=== PATIENT | male | born 1985 | race Caucasian/White ===

== ENCOUNTER 2020-09-03 00:20 | Emergency (ER) | payer OTHER, SELFPAY ==
[2020-09-03 00:24] VITALS: BP 150/92; PULSE 75; RESP 18; TEMP 36.4; O2SAT 99
--- NOTE | 2020-09-03 00:38 | ED.GENADUL_ITS ---
Discharge Plan Disposition Patient Disposition: HOME Condition: Good Discharge Details Clinical Impression: Acute otitis externa of left ear Primary Care Provider: Unknown,Unknown ED Provider: Bairon Ford Home Meds and New Rx's Prescriptions: New ciprofloxacin HCl [Cipro] 500 mg tablet 500 mg PO BID 7 Days Qty: 14 RF: 0 Continued ibuprofen 800 MG tablet 800 mg PO DIRECTED RF: 0 Discontinued amoxicillin 500 MG capsule 500 mg PO TID Qty: 20 RF: 0 Discharge Instructions Instructions: Otitis Externa (ED) Additional Instructions: At this time your otitis externa requires both external antibiotic treatment and internal antibiotic treatment. Please continue to use your Cipro drops with the ear gwendolyn as we showed you, as well as taking the pill Cipro 500 mg twice daily. Continue to take Tylenol and Motrin to help with the pain and swelling. Avoid getting any water into your ear. We are sending you home with a [place] pill to use if you need for pain. Understand that you did have a skin rash with the previous morphine that you are taking, so there is certainly potential although low risk to having a mild rash from the [place] as well. As we discussed together, monitor closely for symptoms of tendon irritation and pain especially in your Achilles tendon. Do not perform any vigorous exercises while taking the Cipro. If you do notice any of those concerning symptoms please stop taking the Cipro immediately and get evaluated by a physician. If you notice any worsening of your symptoms, or any new symptoms such as vomiting, diarrhea, fever, chills, shortness of breath, chest pain, numbness, weakness, or fainting , please return immediately to the emergency department for reevaluation. Please follow up with your primary care provider as soon as possible for reassessment and reevaluation. As always, it was a pleasure participating in your medical care today. Medical Decision Making This is a pleasant 35-year-old male who presents today for left ear pain. Pain began about 4 or 5 days ago, he initially went to an urgent care in [place], he was prescribed Cipro drops and has been taking this, but his symptoms have been worsening. He is also been taking Tylenol and Motrin but this has not been improving his symptoms. He describes the pain as sharp and achy, he has noticed swelling in his ear, he denies fever or chills. No other complaints at this time. Of note he did go swimming a few days ago, but denies getting any water in his ear. Physical exam demonstrates notable swelling of the left ear canal, no significant swelling over the ear itself though. No evidence of malignant otitis externa at this stage. No evidence of mastoiditis. Patient has no history of diabetes, or an immunocompromise state. No history of IV drug use. No bleeding or discharge from the ear at this point. Unable to visualize the tympanic membrane secondary to the swelling though. Was able to utilize an ear wick and we were able to administer the medications utilizing this. Patient tolerated this well. Because of the continued worsening of the symptoms we will add oral Cipro 500 mg twice daily, and recommend continue Tylenol Motrin as well as the topical Cipro. Did discuss pain management at home, and through shared decision-making process we will give the patient a single [place] pill to go home with. We did discuss the risk and benefits of this, including his history of a very mild rash during the surgery when he had morphine. He denies any other allergies or any other problems with this otherwise in the past. Additionally I did also discuss with the patient the importance of monitoring symptoms for fluoroquinolone problems especially with the tendons. We discussed the importance of holding the medication if he has any signs or symptoms concerning for tendon irritation. Discussed red flags which to return. I have extensively reviewed the treatment plan and discharge instructions with the patient. I have addressed all patient concerns at this time. The patient was made aware of what symptoms to monitor for that would warrant a return to the emergency department. Discussed the plan with the patient, they demonstrate verbal understanding and agreement with our assessment and plan at this time. The documentation in this chart was dictated using [employer] dictation software. Please excuse any dictation errors. HPI General Date/Time Provider Initiated Documentation: 09/03/20 00:20 . HPI Narrative: This is a pleasant 35-year-old male who presents today for left ear pain. Pain began about 4 or 5 days ago, he initially went to an urgent care in [place], he was prescribed Cipro drops and has been taking this, but his symptoms have been worsening. He is also been taking Tylenol and Motrin but this has not been improving his symptoms. He describes the pain as sharp and achy, he has noticed swelling in his ear, he denies fever or chills. No other complaints at this time. Of note he did go swimming a few days ago, but denies getting any water in his ear. Related Data Home Medications Medication Instructions Recorded Confirmed ibuprofen 800 mg PO DIRECTED 08/12/13 08/12/13 ciprofloxacin HCl [Cipro] 500 mg PO BID 7 Days #14 tab 09/03/20 Previous Rx's Medication Instructions Recorded ciprofloxacin HCl [Cipro] 500 mg PO BID 7 Days #14 tab 09/03/20 Allergies Allergy/AdvReac Type Severity Reaction Status Date / Time morphine Allergy Mild Skin Rash Unverified 08/12/13 22:58 General Stated Complaint: EarProblem ANTHONY: 4 Review of Systems All systems reviewed & are unremarkable except as noted in HPI and below PFSH Social History Smoking/Tobacco Use Status: Never Smoking risk assessment performed?: Yes Alcohol Intake: current Alcohol Intake frequency: a few times a week Drug use: Never Do you feel safe at home: Yes Do you feel safe in your relationship?: Yes Exam Narrative Exam Narrative: 1.Const: Well-nourished, Well-developed, appearing stated age 2.Eyes: PERRL, no conjunctival injection, and symmetrical lids. 3.ENT: Atraumatic external nose and ears. Moist MM. Neck: Symmetric, trachea midline, No thyromegaly. Right ear and tympanic membrane are unremarkable, no swelling edema or tenderness. Left ear does not demonstrate significant swelling on the external ear, but the left ear canal is notably edematous. Unable to visualize the tympanic membrane secondary to swelling. No mastoid tenderness. Mild tenderness on palpation at the auricle of the tragus. No blood or purulent discharge coming from the ear. 4.CVS: +S1/S2, No murmurs or gallops. Peripheral pulses 2+ and equal in all extremities. Brisk capillary refill in all extremities. 5.RESP: Unlabored respiratory effort. Clear to auscultation bilaterally. No wheezes rales or rhonchi 6.GI: Soft, Nontender/Nondistended, No hepatosplenomegaly. No guarding or rebound. 7.MSK: Normocephalic/Atraumatic, Extremities w/o deformity or ttp No cyanosis or clubbing, Normal movement of all extremities 8.Skin: Warm, Dry. No rashes or lesions. 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 Sensation grossly intact, no focal neurologic deficits. 10.Psych: (AAO) x3. Appropriate mood and affect Course Vital Signs Vital signs: Vital Signs Temperature 36.4 C L 09/03/20 00:24 Pulse 75 09/03/20 00:24 Respiratory Rate 18 09/03/20 00:24 Blood Pressure 150/92 H 09/03/20 00:24 Pulse Oximetry 99 09/03/20 00:24 Temperature 36.4 C L 09/03/20 00:24 Temperature Source Temporal Artery Scan 09/03/20 00:24 Pulse 75 09/03/20 00:24 Respiratory Rate 18 09/03/20 00:24 Respiratory Effort Non-Labored 09/03/20 00:28 Blood Pressure 150/92 H 09/03/20 00:24 Blood Pressure Position Sitting 09/03/20 00:24 Pulse Oximetry 99 09/03/20 00:24 Oxygen Delivery Method Room Air 09/03/20 00:24 Oxygen Flow Rate 0 09/03/20 00:24 Pain Level 8 09/03/20 00:29
[2020-09-03] MEDS: Ciprofloxacin 500 MG TAB PO (00:45)
[2020-09-03] MEDS: HYDROcodone 5/Acetaminophen 325 TAB PO (00:45)
[2020-09-03 00:46] VITALS: BP 138/80; PULSE 75; RESP 18; TEMP 36.4; O2SAT 99
== END 2020-09-03 00:45 | disposition home or self-care (01) ==
LOC: ER 00:52
PROVIDERS: Emergency Provider Student in an Organized Health Care Education/Training Program
DX: H60.502 Unspecified acute noninfective otitis externa, left ear (principal)
CPT/HCPCS: 99283

== ENCOUNTER → 2021-12-08 13:26 | Outpatient (CLI) | payer OTHER, SELFPAY ==
--- NOTE | 2021-12-08 | DI.RAD_ITS ---
Exam(s) XR CHEST 2V PA LATERAL EXAM: XR CHEST 2V PA LATERAL CLINICAL HISTORY: COUGH WITH HEMOPTYSIS, R04.2 TECHNIQUE: 2D digital imaging was performed. COMPARISON: No exams were available for comparison FINDINGS: HEART: Normal size. Aorta: PULMONARY VASCULATURE: Normal. LUNGS: Clear. PLEURAL SPACE: No pleural effusion or pneumothorax. BONE:Unremarkable for age. IMPRESSION: No acute abnormality. DATA REPOSITORY: RADIATION DOSE DELIVERED:
--- OUTSIDE RECORDS SUMMARY | 2021-12-08 13:30 | XMS_ITS | Encounter Summary ---
:1985 Author Organization [facility] [address] Care Team Providers Name Role Phone Deb Vallejo MD Primary Care Provider Encounter Details Date Type Department Care Team Description 03/25/2021 Travel Social History Tobacco Use Types Packs/Day Years Used Date Never Smoker Smokeless Tobacco: Never Used Alcohol Use Standard Drinks/Week Comments Yes 2 (1 standard drink = 0.6 oz pure alcoho l) 1x/week Alcohol Habits Answer Date Recorded How often do you have a drink containing alcohol? Not asked How many drinks containing alcohol do you have on a typical Not asked day when you are drinking? How often do you have six or more drinks on one occasion? No t asked Comment: 1x/week 11/12/2019 Physical Activity Answer Date Recorded On average, how many days per week do you engage in moderate to 7 days 11/30/2021 strenuous exercise (like walking fast, running, jogging, dancing, swimming, biking, or other activities that cause a light or heavy sweat)? On average, how many minutes do you engage in exercise at th is 80 min 11/30/2021 level? Financial Resource Strain Answer Date Recorded How hard is it for you to pay for the very basics like Not v chrissy hard 11/30/2021 food, housing, medical care, and heating? Food Insecurity Answer Date Recorded Within the past 12 months, you worried that your food would Never true 11/30/2021 run out before you got money to buy more. Within the past 12 months, the food you bought just didn't N ever true 11/30/2021 last and you didn't have money to get more. Transportation Needs Answer Date Recorded In the past 12 months, has lack of transportation kept you f rom No 11/30/2021 medical appointments or from getting medications? In the past 12 months, has lack of transportation kept you f rom No 11/30/2021 meetings, work, or getting things needed for daily living? Housing Stability Answer Date Recorded In the last 12 months, was there a time when you were not ab le No 11/30/2021 to pay the mortgage or rent on time? In the last 12 months, how many places have you lived? 1 11/30/2021 In the last 12 months, was there a time when you did not hav e a No 11/30/[address] sleep or slept in a mcc (including now)? Sex Assigned at Date Recorded Not on file documented as of this encounter Plan of Treatment Upcoming Encounters Date Type Specialty Care Team Description 12/15/2021 Hospital Encounter Gastroenterology Benjy Tavera MD [facility] [place], [place] [address] 12/15/2021 Surgery Gastroenterology Benjy Tavera COLONOSC Ben PULIDO MD DIAGNOSTIC [facility] [place], [place] [address] Scheduled Procedures Name Priority Associated Diagnoses Date/Time COLONOSCOPY, DIAGNOSTIC 1 year colo 12/16/19 22 8:30 AM EST documented as of this encounter Visit Diagnoses Not on filedocumented in this encounter Care Teams Shank Skinner Relationship Specialty Start Date End Date Deb Vallejo MD PCP - General Family Medicine 06/16/20 11/10/[address] [facility] [address] MANUEL ESTEVE[facility] [address] documented as of this encounter
--- OUTSIDE RECORDS SUMMARY | 2021-12-08 13:30 | XMS_ITS | Encounter Summary ---
:1985 Author Organization [facility] [place] [address] Care Team Providers Name Role Phone Deb Vallejo MD Primary Care Provider Reason for Referral Diagnostic Test (Routine) - Closed Specialty Diagnoses / Procedures Referred By Contact Refer red To Contact Radiology Diagnoses Neck pain Chronic right-sided headaches Occipital neuralgia of right side Yvon Delgado PA [facility] Rad Mri Procedures MRI Cervical Spine wo Contrast (Generic) [facility] [place] [address] [place] [address] Referral ID Status Reason Start Date Expiration Date Visits V isits Requested Authorized [id number] Closed Specialty 03/10/2021 09/07/2022 1 1 Service Requested Reason for Visit Reason Comments Follow-up Encounter Details Date Type Department Care Team Description 03/10/2021 Office Visit [facility] Bushra Delgado ain; at [facility] [place] Chronic right-sided headaches; [facility] Occ ipital neuralgia of right side [address] [place] [employer] [id number] [place] [address] Social History Tobacco Use Types Packs/Day Years [...] on file documented as of this encounter Last Filed Vital Signs Vital Sign Reading Time Taken Comments Blood Pressure 136/68 03/10/2021 9:20 AM EST Pulse 71 03/10/2021 9:20 AM EST Temperature - - Respiratory Rate - - Oxygen Saturation - - Inhaled Oxygen Concentration - - Weight 87.5 kg (193 lb) 03/10/2021 9:20 AM EST Height 182.9 cm (6') 03/10/2021 9:20 AM EST Body Mass Index 26.18 03/10/2021 9:20 AM EST documented in this encounter Progress Notes Yvon Delgado PA - 03/10/2021 9:20 AM EST Images from the original note were not included. [facility] Yvon Delgado PA-C Dear Colleagues, I had the pleasure of seeing this patient at the [facility] for evaluation. Chief Complaint: Assessment/plan: Diagnosis: 1) Chronic neck pain 2) Chronic headaches 3) Intermittent right cervical radiculopathy Bryan is a 35 year old male who presents to clinic after starting PT for neck pain and chronic headaches. He has had about 6 sessions and had no improvement in symptoms in severity or frequency. Occasionally has arm symptoms. Imaging shows an overall normal cervical spine. He has chronic neck pain andassociated intermittent right radicular symptoms and we discussed that while his XR appears normal, there can be soft disc impingement. We discussed an MRI would help determine if there is a central neural impingement. If MRI does not show a particular cause in regards to his neck, possible interventions to consider are occipital nerve block or trigger point injections. I will discuss results with him once imaging is completed and discuss next steps. 1) MRI cervical spine. 2) Discuss options after MRI. If cervical cause will proceed accordingly. Other options include occipital nerve block, trigger point injections. See below for more details HPI: Bryan is a 35 year old male with history of colon cancer in remission who returns to clinic 2 monthsafter last visit. Plan at last visit was to start PT for which he has had about 6 sessions and has not noticed a significant improvement. Continues to have neck pain and headaches. Reports occasional sy mptoms down right arm but is intermittent. At PT has been doing stretching and dry needling. After jonathan needling session he noticed he did have some increased symptoms but this has resolved. Pain currently rated 1/10. Denies any persistent arm pain, numbness, tingling, hand dysfunction, bowel/bladderchanges, or consitutional symptoms. Allergies Allergen Reactions ??? Morphine Rash Patient Active Problem List Diagnosis ??? Healthcare maintenance ??? Colon cancer ??? Adenocarcinoma of colon Overview Note: On colonoscopy. Sigmoid/rectal. Prior history of blood in stool. ??? Stomach ulcer Overview Note: with hemetemesis ??? Internal hemorrhoid Overview Note: Noted on anoscopy ROS: As above in HPI Imaging: Reviewed Xr from 01/27/21 which shows a well aligned cervical spine with straightening of normal lordotic curvature. Well maintained disc spaces. No acute fracture or abnormality. Physical Exam: Resting comfortably in no acute distress. Continues to have limited cervical ROM due to muscle tightness. He has a normal sensory and motor exam in bilateral upper extremities. Assessment/Plan: Bryan is a 35 year old male who presents to clinic after starting PT for neck pain and chronic headaches. He has had about 6 sessions and had no improvement in symptoms in severity or frequency. Occasionally has arm symptoms. Imaging shows an overall normal cervical spine. He has chronic neck pain andassociated intermittent right radicular symptoms and we discussed that while his XR appears normal, there can be soft disc impingement. We discussed an MRI would help determine if there is a central neural impingement. If MRI does not show a particular cause in regards to his neck, possible interventions to consider are occipital nerve block or trigger point injections. I will discuss results with him once imaging is completed and discuss next steps. 1) MRI cervical spine. 2) Discuss options after MRI. If cervical cause will proceed accordingly. Other options include occipital nerve block, trigger point injections. Thank you for letting me participate in this patient's care. Sincerely, Yvon Delgado PA-C [facility] documented in this encounter Plan of Treatment Upcoming Encounters Date Type Specialty Care Team Description 12/15/2021 Hospital Encounter Gastroenterology Benjy Tavera MD [facility] [address] [place], [place] [address] 12/15/2021 Surgery Gastroenterology Benjy Tavera W, MD [facility] GASTRO[facility]OLOGY [place], [place] [address] Scheduled Procedures Name Priority Associated Diagnoses Date/Time COLONOSCOPY, DIAGNOSTIC 1 year colo 12/16/19 8:30 AM EST documented as of this encounter Results MRI Cervical Spine wo Contrast (Generic) (03/25/2021 10:55 AM EST) Anatomical Region Laterality Modality C-spine Magnetic Resonance Specimen (Source) Anatomical Location Collection Method / Collectio n Time Received Time / Laterality Volume Impressions 03/25/2021 2:03 PM EST Minimal disc degeneration. Thank you for letting us participate in the care of this patient. ??If you are a health care provider and have any questi ons regarding this report, please contact the number below. ??For patients who have questions please contact the health child care supervisor that requested your imaging first. ? Electronically signed by: Sol rzao MD, [facility] ([phone]), at 03/25/2021 2:03 PM Narrative 03/25/2021 2:03 PM EST EXAMINATION: MRI CERVICAL SPINE WO CONTRAST (GENERIC) CLINICAL HISTORY: Cervical radiculopathy TECHNIQUE: MRI of the cervical spine performed with out intravenous contrast administration. COMPARISON: Radiograph 01/27/2021 FINDINGS: Mild reversal of the normal lordosis whi ch may be positional or due to spasm. Marrow signal is normal. Cervical cord s ignal is normal. C2-3: No significant stenosis. C3-4: No significant stenosis. C4-5: No significant stenosis. C5-6: Central disc protrusion minimally narrowing the central canal. C6-7: Central disc protrusion minimally narrowing the central canal. C7-T1: Normal. Procedure Note Sol See MD - 03/25/2021Formatt ing of this note might be different from the original. EXAMINATION: MRI CERVICAL SPINE WO CONTR AST (GENERIC) CLINICAL HISTORY: Cervical radiculopathy TECHNIQUE: MRI of the cervical spine performed with out intravenous contrast administration. COMPARISON: Radiograph 01/27/2021 FINDINGS: Mild reversal of the normal lordosis whi ch may be positional or due to spasm. Marrow signal is normal. Cervical cord s ignal is normal. C2-3: No significant stenosis. C3-4: No significant stenosis. C4-5: No significant stenosis. C5-6: Central disc protrusion minimally narrowing the central canal. C6-7: Central disc protrusion minimally narrowing the central canal. C7-T1: Normal. IMPRESSION Minimal disc degeneration. Thank you for letting us participate in the care of this patient. If you are a health care provider and have any questi ons regarding this report, please contact the number below. For patients w ho have questions please contact the health child care supervisor that requested your imaging first. Luis Felipe Cesar MD IMG MRI ORDERABLES documented in this encounter Visit Diagnoses Diagnosis Neck pain Cervicalgia Chronic right-sided headaches Headache Occipital neuralgia of right side Neck pain Cervicalgia Chronic right-sided headaches Headache Occipital neuralgia of right side documented in this encounter Care Teams Bull Ladle Tender Relationship Specialty Start Date End Date Deb Vallejo MD PCP - General Family Medicine 06/16/20 11/10/[address] [facility] [place] [address] documented as of this encounter
--- OUTSIDE RECORDS SUMMARY | 2021-12-08 13:30 | XMS_ITS | Encounter Summary ---
:1985 Author Organization [facility] Address [address] [place] [address] Care Team Providers Name Role Phone Jayson Garcia MD Primary Care Provider Reason for Visit Reason Comments Annual Exam Coughs a lot in am x 2 month s, vomited blood first week of November, history of colon cancer Encounter Details Date Type Department Care Team Description 11/30/2021 Office Visit Family Medicine at Jayson Garcia Well adult exam; Nettie Jacob MD Cough with hemoptysis; [address] Screening for hyperlipidemia; [place], [place] [facility] Nutritional counseling; [id number] [place] [address] Exercise counseling [phone] Social History Tobacco Use Types Packs/Day Years [...] place to sleep or slept in a skilled nursing (including now)? Sex Assigned at Date Recorded Not on file documented as of this encounter Last Filed Vital Signs Vital Sign Reading Time Taken Comments Blood Pressure 134/72 11/30/2021 1:07 PM EDT Pulse 77 11/30/2021 1:07 PM EDT Temperature 36.8 ??C (98.2 ??F) 11/30/2021 1:07 PM EDT Respiratory Rate - - Oxygen Saturation 98% 11/30/2021 1:07 PM EDT Inhaled Oxygen Concentration - - Weight 88.5 kg (195 lb) 11/30/2021 1:07 PM EDT Height 182.9 cm (6' 0.01) 11/30/2021 1:07 PM EDT Body Mass Index 26.44 11/30/2021 1:07 PM EDT documented in this encounter Progress Notes Jayson Garcia MD - 11/30/2021 1:00 PM EDT Bryan Marmolejo is a 36 y.o. male , patient of Jayson Garcia MD here Chief Complaint Patient presents with ??? Annual Exam Coughs a lot in am x 2 months, vomited blood first week of November, history of colon cancer Subjective Chart review prior to visit: HPI: Bryan Marmolejo is a 36 y.o. male, patient who reports for evaluation for well male exam. Has acuteconcerns of coughing up blood. Has had morning coughing for over 3 years with acute onset of coughing up blood that has occurred 3-4 times over the last 3 months. Patient also notes that the episodes of coughing have resulted in episodes of vomit. Denies any weight loss, recent travel, history of smoking, chest pain, SOB, lower extemity edema. ROS: See Subjective history Allergies Allergen Reactions ??? Morphine Rash Objective BP 134/72 (BP Location (NBP): Left arm, Patient Position: Sitting, BP Cuff Sizes: Large Adult (32-43cm)) Pulse 77 Temp 36.8 ??C (98.2 ??F) Ht 182.9 cm (6' 0.01) Wt 88.5 kg (195 lb) SpO2 98% BMI 26.44 kg/m?? Constitutional: Well developed, well nourished, no acute distress, non-toxic appearance Eyes:conjunctiva, eyelids are unremarkable bilat. HENT: Atraumatic, normocephalic. Eyes: conjunctiva and lids are unremarkable bilaterally, PERRLA, EOMI. External ears are unremarkable to inspection. Neck-supple, symmetrical, no anterior or posterior cervical lymphadenopathy, no thyromegaly or masses. Respiratory: CTABL. no crackles or wheezing. Cardiovascular: Normal rate, normal rhythm, no murmurs, gallops, or rubs. Peripheral pulses 2+ bilat. No pedal edema bilat. GI: Abdomen is soft, nontender to palpation, non-distended, no obvious hepatosplenomegaly, hernias, or masses. No guarding or rebound. Musculoskeletal: No abnormality noted Extremities: all mobile, exhibiting full range of motion, muscle strength and sensation grossly appear intact. Integument: Warm and dry to palpation, no rashes Neurologic: no focal deficits noted Psychiatric: Alert & oriented mood and affect appear appropriate. Assessment/Plan There are no diagnoses linked to this encounter. 1) Well adult exam -Reviewed the importance of portion control, as well as daily exercise with a goal of 30 mins daily. -Will complete flu vaccination 2) Cough with hemoptysis -Symptoms only occur in the morning and not occurring other times throughout the day make malignancyless likely. Symptoms possibly 2/2 sleep apnea, dry room also a possibility. Due to patients historyof adenocarcinoma of the colon will complete CXR. -Pt advised to use humidified air at night, will consider sleep study in the future. No indication for endoscopy at this time but will consider it in the future in setting of symptoms worsening or changing in character. documented in this encounter Plan of Treatment Upcoming Encounters Date Type Specialty Care Team Description 12/15/2021 Hospital Encounter Gastroenterology Benjy [facility]aver[facility] [place] [place] [address] 12/15/2021 Surgery Gastroenterology Benjy Tavera COLONOSC Ben PULIDO MD DIAGNOSTIC [facility] [place], [place] [address] Scheduled Orders Name Type Priority Associated Diagnoses Order S chedule XR Chest PA & Lateral Imaging Routine Cough with hemoptys is Expected: 11/30/2021 (Generic) (Approximate), Expires: 11/30/2022 Scheduled Procedures Name Priority Associated Diagnoses Date/Time COLONOSCOPY, DIAGNOSTIC 1 year colo 12/16/19 22 8:30 AM EST documented as of this encounter Procedures Procedure Name Priority Date/Time Associated Diagnosis Comme nts HC VENIPUNCTURE Routine 11/30/2021 2:30 PM Screening for Resul ts for this EDT hyperlipidemia procedure are in the results section. documented in this encounter Results Lipid Panel (Reflex Direct LDL) (11/30/2021 2:30 PM EDT) athologist Signature Chol, Total 174 mg/dL [facility] Comment: Lower Risk: <200 mg/dL Average Risk: 200-239 mg/dL Higher Risk: >xc=787 mg/dL Triglycerides 54 mg/dL [facility] Comment: Average Risk/Lower Risk: <150 mg/dL Borderline High Risk: 150-199 mg/dL High Risk: 200-499 mg/dL Very High Risk: >hn=315 mg/dL HDL 38 mg/dL [facility] Comment: Males: ?? Higher Risk: <40 mg/dL Females: ?? Higher Risk: <50 mg/dL LDL Cholesterol 125 mg/dL [facility] Comment: Lowest Risk: <100 mg/dL Lower Risk: 100-129 mg/dL Borderline High Risk: 130-159 mg/dL High Risk: 160-189 mg/dL Very High Risk: >dh=054 mg/dL Chol/HDL Ratio 4.6 ratio [facility] Lipid Interpretation See Note [facility] Comment: Lipid management should be guided by a p atient? s ASCVD risk, goals and preferences. ACC/AHA Guidelines recommend high intens ity statin if clinical ASCVD or LDL greater than or equal to 190 mg/dL. http://[email or web address] Adults aged 40-75 with LDL 70-189 mg/dL should have their 10 year ASCVD risk estimated with the ACC/AHA ASCVD risk es timator http://tools.acc.org/UVVAB-Gwud-Kvizxzjf r/ Statin should be discussed if risk great er than or equal to 7.5% in non-diabetics. With diabetes, moderate i ntensity statin is recommended if risk less than 7.5%, high intensity if risk g reater than or equal to 7.5%. Annual lipid monitoring on statins is no t necessary. Evaluate secondary causes of Triglycerid es greater than 500 mg/dL or LDL greater than 190 mg/dL: See table 6 of A CC/AHA Guideline. Lifestyle modification is a critical com ponent of ASCVD risk reduction. Specimen Anatomical Collection Method Collection Time Receive d Time (Source) Location / / Volume Laterality Blood 11/30/2021 2:30 PM 5:23 EDT PM EDT Resulting Agency Comment Spec In Lab Jayson Garcia MD CHEMISTRY ORDERABLES Performing Organization Address City/State/[place] [address] documented in this encounter Visit Diagnoses Diagnosis Well adult exam Routine general medical examination at a health care facility Cough with hemoptysis Other hemoptysis Screening for hyperlipidemia Screening for lipoid disorders Nutritional counseling Exercise counseling documented in this encounter Care Teams Geothermal Hvac Technician Relationship Specialty Start Date End Date Jayson Garcia MD PCP - General 11/11/21 18 [place] [address] documented as of this encounter
--- OUTSIDE RECORDS SUMMARY | 2021-12-08 13:30 | XMS_ITS | Clinical Summary ---
:1985 Author Organization [facility] [place] [address] Care Team Providers Name Role Phone Jayson Garcia MD Primary Care Provider Allergies Active Allergy Reactions Severity Noted Date Comments Morphine Rash 12/06/2014 Medications No known medications Active Problems Problem Noted Date Colon cancer 11/12/2019 Adenocarcinoma of colon 10/28/2019 Overview: On colonoscopy. Sigmoid/rectal. Prior hi story of blood in stool. Healthcare maintenance 08/12/2018 Stomach ulcer 02/06/2007 Overview: with hemetemesis Internal hemorrhoid 12/22/1984 Overview: Noted on anoscopy Encounters Date Type Specialty Care Team Description 12/07/2021 Telephone Family Medicine Eda Metcalf 12/06/2021 Telephone Gastroenterology Yuriy Greenberg 11/30/2021 Office Visit Family Medicine Jayson Garcia, [place] adult exam; Cough with hemo ptysis; Screening for h yperlipidemia; Nutritional cou nseling; Exercise counse ling 11/30/2021 Travel 11/19/2021 Nurse Triage Family Medicine Maribel De La Cruz RN from Last 3 Months Immunizations Name Administration Dates Next Due Influenza PF, Split 12/22/2014 Influenza Vaccine W/preservative, 11/30/2021 Quadrivalent Moderna Covid-19 (Line Installer 100mcg) Vaccine 05/23/2021, 2020, 05/25/2020 Tdap Vaccine 04/08/2014 Family History Medical History Relation Comments Kidney Cancer Brother Nonalcoholic Liver Disease Brother Chronic Obstructive Pulmonary Disease Maternal Grandmother Liver Cancer Paternal Grandfather Melanoma Paternal Grandfather Relation Status Comments Brother Alive Father Alive Maternal Grandfather Maternal Grandmother Mother Alive Paternal Grandfather Paternal Grandmother Son Alive Social History Tobacco Use Types Packs/Day Years [...] place to sleep or slept in a fci (including now)? Sex Assigned at Date Recorded Not on file Last Filed Vital Signs Vital Sign Reading Time Taken Comments Blood Pressure 134/72 11/30/2021 1:07 PM EDT Pulse 77 11/30/2021 1:07 PM EDT Temperature 36.8 ??C (98.2 ??F) 11/30/2021 1:07 PM EDT Respiratory Rate 16 12/14/2020 3:50 PM EST Oxygen Saturation 98% 11/30/2021 1:07 PM EDT Inhaled Oxygen Concentration - - Weight 88.5 kg (195 lb) 11/30/2021 1:07 PM EDT Height 182.9 cm (6' 0.01) 11/30/2021 1:07 PM EDT Body Mass Index 26.44 11/30/2021 1:07 PM EDT Plan of Treatment Upcoming Encounters Date Type Specialty Care Team Description 12/15/2021 Hospital Encounter Gastroenterology Benjy Tavera MD [facility] [place], [place] [address] 12/15/2021 Surgery Gastroenterology Benjy Tavera COLONOSC Ben PULIDO MD DIAGNOSTIC [facility] [address] [place], [place] [address] Scheduled Procedures Name Priority Associated Diagnoses Date/Time COLONOSCOPY, DIAGNOSTIC 1 year colo 12/16/19 22 8:30 AM EST Health Maintenance Due Date Last Done Comments Covid-19 Vaccine (4 - Booster for 07/18/2021 05/23/2021, , Moderna series) 05/25/2020 Colonoscopy Screening 12/14/2021 12/14/2020, 12/14/2020, 10/28/2019, Additional history exists Tetanus vaccine 04/08/2024 04/08/2014 Lipid Screening 11/30/2026 11/30/2021, 07/05/2019 Tdap adult Completed 04/08/2014 HIV screen Completed 07/05/2019 Hepatitis C Screening Completed 07/05/2019 Influenza (Flu) vaccine Completed 11/30/2021, 12/22/2014 Procedures Procedure Name Priority Date/Time Associated Diagnosis Comme nts HC VENIPUNCTURE Routine 11/30/2021 2:30 PM Screening for Resul ts for this EDT hyperlipidemia procedure are in the results section. from Last 3 Months Results Lipid Panel (Reflex Direct LDL) (11/30/2021 2:30 PM EDT) athologist Signature Chol, Total 174 mg/dL [facility] Comment: Lower Risk: <200 mg/dL Average Risk: 200-239 mg/dL Higher Risk: >pu=059 mg/dL Triglycerides 54 mg/dL [facility] Comment: Average Risk/Lower Risk: <150 mg/dL Borderline High Risk: 150-199 mg/dL High Risk: 200-499 mg/dL Very High Risk: >qf=730 mg/dL HDL 38 mg/dL [facility] Comment: Males: ?? Higher Risk: <40 mg/dL Females: ?? Higher Risk: <50 mg/dL LDL Cholesterol 125 mg/dL [facility] Comment: Lowest Risk: <100 mg/dL Lower Risk: 100-129 mg/dL Borderline High Risk: 130-159 mg/dL High Risk: 160-189 mg/dL Very High Risk: >td=757 mg/dL Chol/HDL Ratio 4.6 ratio [facility] Lipid Interpretation See Note [facility] Comment: Lipid management should be guided by a p atient? s ASCVD risk, goals and preferences. ACC/AHA Guidelines recommend high intens ity statin if clinical ASCVD or LDL greater than or equal to 190 mg/dL. http://tinyurl.com/OKQ-AOE-Jhzppjvpe Adults aged 40-75 with LDL 70-189 mg/dL should have their 10 year ASCVD risk estimated with the ACC/AHA ASCVD risk es timator http://tools.acc.org/YYTNI-Utdn-Aqwsemne r/ Statin should be discussed if risk [...] Organization Address City/State/[place] [address] from Last 3 Months Insurance Payer Benefit Plan / Subscriber ID Effective Dates Phone Addre ss Type Group [id number] 2018-Present [address] [place] [address] Advance Directives Documents on File Type Date Recorded Patient Mapping Engineer Explanati on Personal Mapping Engineer 12/01/2021 7:54 AM Zak Mariya Francie (spouse) Latest Code Status on File Code Status Date Activated Date Inactivated Comments Attempt Cardiopulmonary Resuscitation - 11/12/2019 5:02 PM 020 1:11 PM Inpatient Code Status decision made by: Patient Attempt Cardiopulmonary Resuscitation - 11/12/2019 12:42 PM 2019 5:02 PM Inpatient Code Status decision made by: Patient Care Teams Dispatch Supervisor Relationship Specialty Start Date End Date Jayson Garcia MD PCP - General 11/11/21 18 [place] [place] [address]
--- OUTSIDE RECORDS SUMMARY | 2021-12-08 13:30 | XMS_ITS | Encounter Summary ---
:1985 Author Organization [facility] [place] [address] Care Team Providers Name Role Phone Deb Vallejo MD Primary Care Provider Reason for Referral Physical Therapy (Routine) - Closed Specialty Diagnoses / Procedures Referred By Contact Refer red To Contact Diagnoses Neck pain Chronic right-sided headaches Occipital neuralgia of right side Yvon Delgado PA [facility] [place] [address] Referral ID Status Reason Start Date Expiration Date Visits V isits Requested Authorized [id number] Closed Evaluate and 01/27/2021 07/26/2021 12 12 Treat Reason for Visit Reason Comments Neck Pain Surgical (Routine) - Closed Specialty Diagnoses / Procedures Referred By Contact Refer red To Contact [facility] Diagnoses Neck pain neck pain/ h/o injury/ ? surgery (notes say he did but no mention in med hx)/ no imaging Ursula Chow MD [facility] Pain And [facility] Spine [address] [facility] [place] [phone] Fax: Referral ID Status Reason Start Date Expiration Date Visits V isits Requested Authorized [id number] Closed Specialty 11/19/2020 11/19/2021 1 1 Service Requested Encounter Details Date Type Department Care Team Description 01/27/2021 Office Visit [facility] Bushra Delgado; at [facility] Chronic right-sided headaches; [facility] Occ ipital neuralgia of right side [address] [place] [phone] [facility] [place] [address] [phone] Social History Tobacco Use Types Packs/Day Years [...] place to sleep or slept in a group home (including now)? Sex Assigned at Date Recorded Not on file documented as of this encounter Last Filed Vital Signs Vital Sign Reading Time Taken Comments Blood Pressure 119/69 01/27/2021 10:44 AM EST Pulse 63 01/27/2021 10:44 AM EST Temperature - - Respiratory Rate - - Oxygen Saturation - - Inhaled Oxygen Concentration - - Weight 89.8 kg (198 lb) 01/27/2021 10:44 AM EST Height 182.9 cm (6') 01/27/2021 10:44 AM EST Body Mass Index 26.85 01/27/2021 10:44 AM EST documented in this encounter Progress Notes Yvon Delgado PA - 01/27/2021 11:00 AM EST Images from the original note were not included. [facility] Yvon Delgado PA-C Dear Colleagues, I had the pleasure of seeing this patient at the [facility] for evaluation. Chief Complaint: Neck pain that radiates into right shoulder and head Assessment/plan: Diagnosis: 1) Neck pain 2) right sided headache Bryan is a 35 year old male with a history of colon cancer (treated with enterectomy and in remission) who presents for evaluation of neck pain that radiates into right shoulder and has associated withright sided headaches. Has a history of right shoulder rotator cuff repair. Treatment has consisted of massage therapy and activity modification. There are no particular activities or positions that alleviate or aggravate. There are no images for review. Physical exam is overall unremarkable outside of trapezial tightness and limited right shoulder ROM. We discussed that there could be several causes of his symptoms. He has a history of rotator cuff injury and has limited shoulder ROM. His tight trapezius could be a result of overcompensation and resulting in tension type headaches. Another cause could be occipital neuralgia, which I would not typically expect to radiate down to his right upper extremity. There could be some cervical arthitis causing his symptoms. We discussed interventions moving forward. We discussed starting physical therapy and improving biomechanics and stretching may alleviate some of his symptoms. We also discussed getting cervical xr to determine if there is a bony cause of his symptoms. We will have him follow up in 6-8 weeks for clinical check. 1) PT 2) Xr cervical spine 3) Follow up 6-8 weeks See below for more details HPI: Bryan is a 35 year old male with a history of colon cancer treated with enterectomy and in remission, who present for evaluation of neck pain that radiates to his right upper extremity and is associated with right sided headaches and numbness. These have been occurring for 2+ years. Pain typically begins as neck and shoulder tightness and progresses and travels to the right shoulder as well as travels up the neck and right sided occipital pain and numbness. There are no known alleviating or aggravating positions. Massage typically provides good relief. He has a history of rotator cuff repair and has quite limited ROM of his right shoulder. He has done PT for his shoulder in the distant past but nothing for his neck recently. He has some right elbow achiness but denies any other upper extremity pain, numbness, tingling, or weakness. No gait or hand dysfunction. No consitutional symptoms. Allergies Allergen Reactions ??? Morphine Rash Patient Active Problem List Diagnosis ??? Healthcare maintenance ??? Colon cancer ??? Adenocarcinoma of colon Overview Note: On colonoscopy. Sigmoid/rectal. Prior history of blood in stool. ??? Stomach ulcer Overview Note: with hemetemesis ??? Internal hemorrhoid Overview Note: Noted on anoscopy ROS: As above in HPI Imaging: No imaging for review today Physical Exam: Patient resting comfortably in the room in no acute distress. Ambulates without assistive device. Able to toe, heel, tandem gait. Limited ROM of lateral bending due to muscular tightness, but otherwisefunctional ROM of neck in all planes. Right shoulder limited ROM in forward flexion and abduction due to tightness. Tenderness to palpation in right sided neck musculature and trapezius. Normal sensoryexam in bilateral upper extremities. Motor strength 5/5 throughout. Assessment/Plan: Bryan is a 35 year old male with a history of colon cancer (treated with enterectomy and in remission) who presents for evaluation of neck pain that radiates into right shoulder and has associated withright sided headaches. Has a history of right shoulder rotator cuff repair. Treatment has consisted of massage therapy and activity modification. There are no particular activities or positions that alleviate or aggravate. There are no images for review. Physical exam is overall unremarkable outside of trapezial tightness and limited right shoulder ROM. We discussed that there could be several causes of his symptoms. He has a history of rotator cuff injury and has limited shoulder ROM. His tight trapezius could be a result of overcompensation and resulting in tension type headaches. Another cause could be occipital neuralgia, which I would not typically expect to radiate down to his right upper extremity. There could be some cervical arthitis causing his symptoms. We discussed interventions moving forward. We discussed starting physical therapy and improving biomechanics and stretching may alleviate some of his symptoms. We also discussed getting cervical xr to determine if there is a bony cause of his symptoms. We will have him follow up in 6-8 weeks for clinical check. 1) PT 2) Xr cervical spine 3) Follow up 6-8 weeks Thank you for letting me participate in this patient's care. Sincerely, Yvon Delgado PA-C [facility] documented in this encounter Plan of Treatment Upcoming Encounters Date Type Specialty Care Team Description 12/15/2021 Hospital Encounter Gastroenterology Benjy Tavera MD [facility] [address] [place] [place] [address] 12/15/2021 Surgery Gastroenterology Benjy Tavera COLONOSC Ben PULIDO MD DIAGNOSTIC [facility] [address] [place] [address] Scheduled Procedures Name Priority Associated Diagnoses Date/Time COLONOSCOPY, DIAGNOSTIC 1 year colo 12/16/19 8:30 AM EST Scheduled Referrals Name Type Priority Associated Diagnoses Order S chedule Referral to Outpatient Referral Routine Neck pain Ordered: Physical Therapy Chronic right-sided 01/07 headaches Occipital neuralgia of right side documented as of this encounter Results XR Cervical Spine 2 or 3 Views (01/27/2021 11:27 AM EST) Anatomical Region Laterality Modality C-spine N/A Digital Radiography Specimen (Source) Anatomical Location Collection Method / Collectio n Time Received Time / Laterality Volume Impressions 01/27/2021 1:57 PM EST Normal radiograph of the cervical spine. I have personally reviewed the image(s) and the resident's interpretation and agree with the findings, Kristen Thornton MD at 01/27/2021 1:57 PM Thank you for letting us participate in the care of this patient. ??If you are a health care provider and have any questi ons regarding this report, please contact the number below. ??For patients who have questions please contact the health resident care spec that requested your imaging first. ? Electronically signed by: Kristen Thornton MD, [facility] ([phone]), at 01/27/2021 1:57 PM Narrative 01/27/2021 1:57 PM EST EXAMINATION: XR CERVICAL SPINE 2 OR 3 VIEWS CLINICAL HISTORY: Neck pain that radiate s into right head and right shoulder with associated headaches and right elbo w pain TECHNIQUE: AP and lateral views of the cervical spi ne COMPARISON: None FINDINGS: C1 through the top of T1 are visualized in lateral projection. Straightening of the normal lordotic cur vature of the cervical spine. Atlantodental interval is normal. No lis thesis. Loss of cervical lordosis. Vertebral body height and intervertebral disc height are maintained. No prevertebral soft tissue edema. Procedure Note Kristen Thornton MD - 01/27/2021Formatt ing of this note might be different from the original. EXAMINATION: XR CERVICAL SPINE 2 OR 3 EWS CLINICAL HISTORY: Neck pain that radiate s into right head and right shoulder with associated headaches and right elbo w pain TECHNIQUE: AP and lateral views of the cervical spi ne COMPARISON: None FINDINGS: C1 through the top of T1 are visualized in lateral projection. Straightening of the normal lordotic cur vature of the cervical spine. Atlantodental interval is normal. No lis thesis. Loss of cervical lordosis. Vertebral body height and intervertebral disc height are maintained. No prevertebral soft tissue edema. IMPRESSION Normal radiograph of the cervical spine. I have personally reviewed the image(s) and the resident's interpretation and agree with the findings, Kristen Thornton MD at 01/27/2021 1:57 PM Thank you for letting us participate in the care of this patient. If you are a health care provider and have any questi ons regarding this report, please contact the number below. For patients w ho have questions please contact the health resident care spec that requested your imaging first. Electronically signed by: Kristen Thornton MD, [facility] ([phone]), at 01/27/2021 1:57 PM Luis Felipe Cesar MD IMG DX ORDERABLES documented in this encounter Visit Diagnoses Diagnosis Neck pain Cervicalgia Chronic right-sided headaches Headache Occipital neuralgia of right side Neck pain Cervicalgia Chronic right-sided headaches Headache Occipital neuralgia of right side documented in this encounter Care Teams Vice President Of Product Marketing Relationship Specialty Start Date End Date Deb Vallejo MD PCP - General Family Medicine 06/16/20 11/10/21 [facility] [address] [place] [address] documented as of this encounter
--- OUTSIDE RECORDS SUMMARY | 2021-12-08 13:30 | XMS_ITS | Encounter Summary ---
:1985 Author Organization [facility] [place] [address] Care Team Providers Name Role Phone Deb Vallejo MD Primary Care Provider Reason for Referral Diagnostic Test (Routine) - Closed Specialty Diagnoses / Procedures Referred By Contact Refer red To Contact Radiology Diagnoses Neck pain Chronic right-sided headaches Occipital neuralgia of right side Yvon Delgado PA [facility] Rad Mri Procedures MRI Cervical Spine wo Contrast (Generic) [facility] [place] [place] [address] [place] [address] Referral ID Status Reason Start Date Expiration Date Visits V isits Requested Authorized [id number] Closed Specialty 03/10/2021 09/07/2022 1 1 Service Requested Reason for Visit Diagnostic Test (Routine) - Closed Specialty Diagnoses / Procedures Referred By Contact Refer red To Contact Radiology Diagnoses Neck pain Chronic right-sided headaches Occipital neuralgia of right side Yvon Delgado PA [facility] Rad Mri Procedures MRI Cervical Spine wo Contrast (Generic) [facility] DR [address] [facility] [place] [address] [place] [address] Referral ID Status Reason Start Date Expiration Date Visits V isits Requested Authorized [id number] Closed Specialty 03/10/2021 09/07/2022 1 1 Service Requested Encounter Details Date Type Department Care Team Description 03/25/2021 Hospital Encounter Radiology at [facility] Luis Felipe Cesar Neck pain; [facility] MD Nidia Chronic right-sided headaches; [facility] Occipital neuralgia of right side [place], [place] CENTER [address] [facility] [phone] [place] [id number] Social History Tobacco Use Types Packs/Day Years [...] place to sleep or slept in a detention (including now)? Sex Assigned at Date Recorded Not on file documented as of this encounter Plan of Treatment Upcoming Encounters Date Type Specialty Care Team Description 12/15/2021 Hospital Encounter Gastroenterology Benjy Tavera MD [facility] GASTROENTERJERI [place], [place] [address] 12/15/2021 Surgery Gastroenterology Benjy Tvaera COLONOSC Ben PULIDO MD DIAGNOSTIC [facility] GASTROENTER[facility]I [place], [place] [address] Scheduled Procedures Name Priority Associated Diagnoses Date/Time COLONOSCOPY, DIAGNOSTIC 1 year colo 12/16/19 22 8:30 AM EST documented as of this encounter Procedures Procedure Name Priority Date/Time Associated Diagnosis Comme nts MRI CERVICAL SPINE Routine 03/25/2021 10:55 AM Neck pain Results for this WO CONTRAST EST Chronic right-sided procedur e are in headaches the results Occipital neuralgia section. of right side documented in this encounter Results MRI Cervical Spine wo [...] who have questions please contact the health certified social workers in health care that requested your imaging first. ? Narrative 03/25/2021 2:03 PM EST EXAMINATION: MRI [...] ho have questions please contact the health certified social workers in health care that requested your imaging first. Luis Felipe Cesar MD IMG MRI ORDERABLES documented in this encounter Visit Diagnoses Diagnosis Neck pain Cervicalgia Chronic right-sided headaches Headache Occipital neuralgia of right side documented in this encounter Care Teams Microphone Operator Relationship Specialty Start Date End Date Deb Vallejo MD PCP - General Family Medicine 06/16/20 11/10/[address] [facility] [address] [place] [address] documented as of this encounter
--- OUTSIDE RECORDS SUMMARY | 2021-12-08 13:30 | XMS_ITS | Encounter Summary ---
:1985 Author Organization [facility] [place] [address] Care Team Providers Name Role Phone Jayson Garcia MD Primary Care Provider Encounter Details Date Type Department Care Team Description 12/07[facility]2021 [facility] [address] [place] [phone] Social History Tobacco Use Types Packs/Day Years [...] place to sleep or slept in a [place] facility (including now)? Sex Assigned at Date Recorded Not on file documented as of this encounter Plan of Treatment Upcoming Encounters Date Type Specialty Care Team Description 12/15/2021 Hospital Encounter Gastroenterology Benjy Tavera MD [facility] GASTROENTEROLOGY [place], [place] [address] 12/15/2021 Surgery Gastroenterology Benjy Tavera COLONOSC Ben PULIDO MD DIAGNOSTIC [facility] [place], [place] [address] Scheduled Procedures Name Priority Associated Diagnoses Date/Time COLONOSCOPY, DIAGNOSTIC 1 year colo 12/16/19 22 8:30 AM EST documented as of this encounter Visit Diagnoses Not on filedocumented in this encounter Care Teams Business Services Administrator Relationship Specialty Start Date End Date Jayson Garcia MD PCP - General 11/11/21 [address] [place] [address] documented as of this encounter
--- OUTSIDE RECORDS SUMMARY | 2021-12-08 13:30 | XMS_ITS | Encounter Summary ---
:1985 Author Organization [facility] Address [address] [address] Care Team Providers Name Role Phone Jayson Garcia MD Primary Care Provider Reason for Visit Reason Onset Date Comments Cough 11/19/2021 Encounter Details Date Type Department Care Team Description 11/19/2021 [facility] [address] [place] [phone] Social History Tobacco Use Types Packs/Day [...] on file documented as of this encounter Miscellaneous Notes Telephone Encounter - Latoya Singh RN - 11/19/2021 9:52 AM EDT Caller: Bryan Marmolejo Patient identified by name and by self Chief complaint: Worsening Cough - COUGHS in AM only Onset: 1.5 weeks Description of symptoms: Vomited blood x1 about week ago in AM. 11/11 Last episode. Not BRB. No clots but does not really look at sputum before flushing down toilet. No pink, frothy sputum No feelings of suffocation or inability to speak Not induced by exercise Denies weight loss Hymoptosis ongoing past 5-6 months. Every 3-4 day will vomiting from coughing x 1 in the morning on arising. Coughs every morning for about first 5-10 minutes then no further coughing until next morning. Does not interfere with sleep or ADLs. Denies SOB, rapid breathing during coughing or at other times. No fever or chills Denies wheezing. No Increased WOB. No chest pain, discomfort, palpitations. No blood in stools. Reports he Feels Fine Alleviating factors: none identified Pertinent hx: Colon Cancer - 2 years ago H/O gastric Ulcer Telehealth screen: [x] Established patient [x] Will be in [place] or [place] at time of visit [] Has access to Internet smart phone or computer with camera [x] Would need phone visit HTI Screen: positive if any sx apply - Cough X - Fever - Shortness of breath - Fatigue - Muscle or body aches - Headache - New loss of taste or smell - Sore Throat - Congestion or runny nose - Nausea or vomiting - Diarrhea Plan: [x] Will review with PCP/COS and call patient back [x] Appointment scheduled date: Has appointment 11/30/[address] Garcia. [] Advised to seek urgent care [] Advised to seek emergent care [] Call 911. Advised to seek Urgent Care or TH appointment today. Reports he feels fine and prefers to wait until11/30 appointment with new PCP. Advised patient to Seek Urgent/ED care for: Continued worsening of cough, development new symptoms - SOB, increased WOB, fever/chills, increasedpost coughing vomiting, increased episodes bloody sputum or BRB with clots, chest pain, blue color to Lips/skin or difficulty speaking. Patient understands information given. Continues to decline Urgent Care of TH appointment for today. Did agree to seek urgent/ED level care for above symptoms or call Clinic for urgent appointment. Home Care Instructions provided per: [x] [facility] Telephone Triage Protocols for Nurses 6th edition. COUGH [] Puentes: Pediatric Telephone protocols /16th edition Recommendations for worsening condition: Urgent Care or ED. Does the Patient agree and understand the instructions provided: Yes bit not willing to accept referral to Urgent Care or TH appointment today. Message routed to PCP for review and advice. Telephone Encounter - Maribel De La Cruz RN - 11/19/2021 9:14 AM EDTSumlatoya: Needs 24 hours visit- URGENT CALL Reason for Call: Cough Assessment/Symptom Review (onset, location, duration, what makes it better or worse, pertinent positives and negatives): 36 y.o. male hx colon cancer and stomach ulcers calls reporting that for ~1.5 weeks he's been having worsening cough Neg COVID Severe with reaching/vomiting symptoms on 11/13 he coughed up blood Advised I would contact patient for further triage and scheduling Worsening Symptoms: Emphasized symptoms that require emergent/urgent care according to [facility] protocols Patient/Caregiver demonstrates understanding via teach back: Yes Disposition: See PCP Within 24 Hours - Can either do triage or urgent care visit today- no in personavailable Reason for Disposition ??? Coughing up gracia-colored (reddish-brown) sputum ??? SEVERE coughing spells (e.g., whooping sound after coughing, vomiting after coughing) Protocols used: COUGH - ACUTE [id number] documented in this encounter Plan of Treatment Upcoming Encounters Date Type Specialty Care Team Description 12/15/2021 Hospital Encounter Gastroenterology Benjy Tavear MD [facility] GASTROENTEROLOGY [place], [place] [address] 12/15/2021 Surgery Gastroenterology Benjy Tavera COLONOSC Ben PULIDO MD DIAGNOSTIC [facility] GASTROENTEROLOGY [place], [place] [address] Scheduled Procedures Name Priority Associated Diagnoses Date/Time COLONOSCOPY, DIAGNOSTIC 1 year colo 12/16/19 8:30 AM EST documented as of this encounter Visit Diagnoses Not on filedocumented in this encounter Care Teams Emergency Registrar Relationship Specialty Start Date End Date Jayson Garcia MD PCP - General 11/11/[address] [place] [id number] documented as of this encounter
--- OUTSIDE RECORDS SUMMARY | 2021-12-08 13:30 | XMS_ITS | Encounter Summary ---
:1985 Author Organization [facility] Address [address] [place] [address] Care Team Providers Name Role Phone Deb Vallejo MD Primary Care Provider Encounter Details Date Type Department Care Team Description 03/26/2021 TH Visit [facility] [place], Neck pain; (TeleHealth) Center at [facility] Sanz Chronic right-sided headaches; [facility] Occipital neuralgia of right side [address] [place] [place] [id number] [place] [address] [phone] Social History Tobacco Use Types Packs/Day Years [...] minutes do you engage in exercise at is 80 min 11/30/2021 level? Financial Resource [...] place to sleep or slept in a jail (including now)? Sex Assigned at Date Recorded Not on file documented as of this encounter Progress Notes Yvon Delgado PA - 03/26/2021 8:20 AM EST Images from the original note were not included. [facility] Yvon Delgado PA-C Dear Colleagues, I had the pleasure of seeing this patient at the [facility] for evaluation. This visit was performed via telehealth to discuss MRI results and next steps. Patient confirmed name and and agrees to have visit in this manner. Brief summary and plan: Diagnosis: 1) cervicalgia Bryan is a 35 year old male who has been having neck pain that occasionally radiates into head and right upper extremity. He has been making improvements with PT and pain is tolerable for him. No significant findings on MRI that would be causing his symptoms and likely to be of a peripheral cause. We discussed treatment options including possible trigger point or occipital nerve blocks for which patient feels he does not need at this time. He will continue working with PT and doing home exercises. If symptoms change or if he desires to move forward with treatment he will let us know. 1) Follow up prn Chief complaint: Neck pain that intermittently radiates into right shoulder and head HPI: Bryan is a 35 year old male who was last seen by me on 03/10/21 for continued workup of neck pain withintermittent neck and shoulder/arm pain. He had his MRI recently and this visit is to discuss these results. He reports his symptoms are tolerable since starting PT, though had slight worsening of of symptoms after dry needling treatment. Otherwise pain is around a 4-5/10. No red flag symptoms otherwise. Review of systems: As above in HPI Physical exam: Physical exam deferred due to nature of televideo visit and to discuss MRI results Imaging: Reviewed MRI of cervical spine obtained 03/25/21 which shows a straightening of the cervical spine. There is no significant central or foraminal stenosis. Mild disc protrusions at C5-6 and C6-7. Assessment/plan: Bryan is a 35 year old male who has been having neck pain that occasionally radiates into head and right upper extremity. He has been making improvements with PT and pain is tolerable for him. No significant findings on MRI that would be causing his symptoms and likely to be of a peripheral cause. We discussed treatment options including possible trigger point or occipital nerve blocks for which patient feels he does not need at this time. He will continue working with PT and doing home exercises. If symptoms change or if he desires to move forward with treatment he will let us know. 1) Follow up prn Thank you for letting me participate in this patient's care. Sincerely, Yvon Delgado PA-C [facility] documented in this encounter Plan of Treatment Upcoming Encounters Date Type Specialty Care Team Description 12/15/2021 Hospital Encounter Gastroenterology Benjy Tavera MD [facility] [place], [place] [address] 12/15/2021 Surgery Gastroenterology Benjy Tavera W, MD DIAGNOSTIC [facility] [place], [place] [address] Scheduled Procedures Name Priority Associated Diagnoses Date/Time COLONOSCOPY, DIAGNOSTIC 1 year colo 12/16/19 22 8:30 AM EST documented as of this encounter Visit Diagnoses Diagnosis Neck pain Cervicalgia Chronic right-sided headaches Headache Occipital neuralgia of right side documented in this encounter Care Teams Manager Basketball Relationship Specialty Start Date End Date Deb Vallejo MD PCP - General Family Medicine 06/16/20 11/10/[address] [facility] [address] [facility] [place] [address] documented as of this encounter
--- OUTSIDE RECORDS SUMMARY | 2021-12-08 13:30 | XMS_ITS | Encounter Summary ---
:1985 Author Organization [facility] Address [place] [address] Care Team Providers Name Role Phone Deb Vallejo MD Primary Care Provider Encounter Details Date Type Department Care Team Description 01/27/2021 Hospital Encounter XRay at [facility] Luis Felipe Cesar Neck pain; [address] Nidia MD Chronic right-sided headaches; [place], [place] [facility] Occipital neura lgia of right side [id number] CENTER [phone] [place] [address] Social History Tobacco Use Types Packs/Day Years [...] 12/15/2021 Hospital Encounter Gastroenterology Benjy Tavera MD [facility] GASTROENTER[facility]I [place], [place] [address] 12/15/2021 Surgery Gastroenterology Benjy Tavera COLONOSC Ben PULIDO MD DIAGNOSTIC [facility] GASTRO[facility] [place], [place] [address] Scheduled Procedures Name Priority Associated Diagnoses Date/Time COLONOSCOPY, DIAGNOSTIC 1 year colo 12/16/19 8:30 AM EST documented as of this encounter Procedures Procedure Name Priority Date/Time Associated Diagnosis Comme nts XR CERVICAL SPINE 2 Routine 01/27/2021 11:27 AM Neck damien n Results for this OR 3 VIEWS EST Chronic right-sided procedur e are in headaches the results Occipital neuralgia section. of right side documented in this encounter Results XR Cervical Spine 2 [...] who have questions please contact the health care transition coordinator that requested your imaging first. ? Electronically signed by: Kristen Thornton MD, [facility] ([phone]), at 01/27/2021 1:57 PM Narrative 01/27/2021 1:57 [...] ho have questions please contact the health care transition coordinator that requested your imaging first. Electronically signed by: Kristen Thornton MD, [facility] ([phone]), at 01/27/2021 1:57 PM Luis Felipe Cesar MD IMG DX ORDERABLES documented in this encounter Visit Diagnoses Diagnosis Neck pain Cervicalgia Chronic right-sided headaches Headache Occipital neuralgia of right side documented in this encounter Care Teams Sewing Teacher Relationship Specialty Start Date End Date Deb Vallejo MD PCP - General Family Medicine 06/16/20 11/10/[address] [facility] [address] [place] [address] documented as of this encounter
--- OUTSIDE RECORDS SUMMARY | 2021-12-08 13:30 | XMS_ITS | Encounter Summary ---
:1985 Author Organization [facility] [place] [address] Care Team Providers Name Role Phone Jayson Garcia MD Primary Care Provider Encounter Details Date Type Department Care Team Description 11/30/2021 Travel Social History Tobacco Use Types Packs/Day [...] place to sleep or slept in a assisted (including now)? Sex Assigned at Date Recorded Not on file documented as of this encounter Plan of Treatment Upcoming Encounters Date Type Specialty Care Team Description 12/15/2021 Hospital Encounter Gastroenterology Benjy Tavera MD [facility] GASTR[facility] [place], [place] [address] 12/15/2021 Surgery Gastroenterology Benjy Tavera COLONOSC Ben PULIDO MD DIAGNOSTIC [facility] [place], [place] [address] Scheduled Procedures Name Priority Associated Diagnoses Date/Time COLONOSCOPY, DIAGNOSTIC 1 year colo 12/16/19 22 8:30 AM EST documented as of this encounter Visit Diagnoses Not on filedocumented in this encounter Care Teams Pole Sander Operator Relationship Specialty Start Date End Date Jayson Garcia MD PCP - General 11/11/21 [address] [place] [address] documented as of this encounter
--- OUTSIDE RECORDS SUMMARY | 2021-12-08 13:30 | XMS_ITS | Encounter Summary ---
:1985 Author Organization [facility] [place] [address] Care Team Providers Name Role Phone Deb Vallejo MD Primary Care Provider Encounter Details Date Type Department Care Team Description 12/14/2020 Hospital Encounter Gastroenterology at [facility] [place] [address] CENTER [phone] GASTROENEROLOGY [place], [place] [address] Social History Tobacco Use Types Packs/Day Years [...] place to sleep or slept in a longterm (including now)? Sex Assigned at Date Recorded Not on file documented as of this encounter Last Filed Vital Signs Vital Sign Reading Time Taken Comments Blood Pressure 116/76 12/14/2020 3:50 PM EST Pulse 57 12/14/2020 3:25 PM EST Temperature 36.4 ??C (97.5 ??F) 12/14/2020 2:35 PM EST Respiratory Rate 16 12/14/2020 3:50 PM EST Oxygen Saturation 98% 12/14/2020 3:50 PM EST Inhaled Oxygen Concentration - - Weight - - Height - - Body Mass Index - - documented in this encounter Discharge Instructions Discharge InstructionsJazmine Ward RN - 12/14/2020 3:34 PM EST Colonoscopy: What to Expect at Home Your Recovery Your doctor will talk to you about when you will need your next colonoscopy. Your doctor can help you decide how often you need to be checked. This will depend on the results of your test and your riskfor colorectal cancer. After the test, you may be bloated or have gas pains. You may need to pass gas. If a biopsy was doneor a polyp was removed, you may have streaks of blood in your stool (feces) for a few days. Problemssuch as heavy rectal bleeding may not occur until several weeks after the test. This isn't common. But it can happen after polyps are removed. This care sheet gives you a general idea about how long it will take for you to recover. But each person recovers at a different pace. Follow the steps below to get better as quickly as possible. How can you care for yourself at home? Activity Rest when you feel tired. ?? You can do your normal activities when it feels okay to do so. Diet ?? Follow your doctor's directions for eating. ?? Unless your doctor has told you not to, drink plenty of fluids. This helps to replace the fluidsthat were lost during the colon prep. ?? Do not drink alcohol. Medicines ?? Your doctor will tell you if and when you can restart your medicines. He or she will also give you instructions about taking any new medicines. ?? If you take blood thinners, such as warfarin (Coumadin), clopidogrel (Plavix), or aspirin, be sure to talk to your doctor. He or she will tell you if and when to start taking those medicines again.Make sure that you understand exactly what your doctor wants you to do. ?? If polyps were removed or a biopsy was done during the test, your doctor may tell you not to take aspirin or other anti-inflammatory medicines for a few days. These include ibuprofen (Advil, Motrin) and naproxen (Aleve). Other instructions ?? For your safety, do not drive or operate machinery until the medicine wears off and you can think clearly. Your doctor may tell you not to drive or operate machinery until the day after your test. ?? Do not sign legal documents or make major decisions until the medicine wears off and you can think clearly. The anesthesia can make it hard for you to fully understand what you are agreeing to. Additional Information for Sedation Patients For patients who received sedation: ?? You may have received medications before and/or during your procedure which effects your judgement and reaction time. ?? Do not drive, operate machinery, drink alcoholic beverages or make important decisions for 24 hours. ?? Be careful on stairs as you may be unsteady on your feet. ?? You may eat a regular diet as tolerated. ?? Do not smoke if you are alone. ?? IV site: Slight redness or tenderness is normal, you can use a warm compress if you would like. If tenderness and/or redness increase or if foul drainage occurs, please contact your Doctor. Please call [phone] before 8pm Mon-Fri with problems, questions or concerns. If you call after 8pm or on weekends, call the Hospital at [phone] and ask to speak to the [employer] plant operations manager and the boiler operator will contact that person for you. When should you call for help? Call 171 anytime you think you may need emergency care. For example, call if: ?? You passed out (lost consciousness). ?? You pass maroon or bloody stools. ?? You have trouble breathing. Call your doctor now or seek immediate medical care if: ?? You have pain that does not get better after you take pain medicine. ?? You are sick to your stomach or cannot drink fluids. ?? You have new or worse belly pain. ?? You have blood in your stools. ?? You have a fever. ?? You cannot pass stools or gas. Watch closely for changes in your health, and be sure to contact your doctor if you have any problems. Where can you learn more? [facility] View your After Visit Summary and more online at [email or web address] If you would like to provide feedback about your hospital experience, please call the Office of Patient and Family Relations at . If you have received this After Visit Summary in error, please immediately return it in person to the department, or notify the [facility] Privacy Office by calling toll free at between the hours of 8AM and 5PM to arrange for our retrieval of the documents at no cost to you. Content Version: 12.2 ?? [id number] [employer]. Care instructions adapted under license by [facility]. If you have questions about a medical condition or this instruction, always ask your healthcare professional. [employer] disclaims any warranty or liability for your use of this information. documented in this encounter H&P Notes Benjy Tavera MD - 12/14/2020 2:55 PM EST Patient Name: Bryan Marmolejo Patient Age: 35 y.o. Birthdate: 1985 Admit date: 12/14/2020 Attending Physician: Benjy Tavera MD Gastroenterology and Hepatology Pre-Procedure History and Physical Exam Procedure: Colonoscopy: Indication: colon cancer s/p resection, surveillance colonoscopy Patient Active Problem List Diagnosis Code ??? Healthcare maintenance Z00.00 ??? Internal hemorrhoid K64.8 ??? Stomach ulcer K25.9 ??? Adenocarcinoma of colon C18.9 ??? Colon cancer C18.9 EXAM: HEENT: Airway examined, oropharynx clear Mallampati Score: II (soft palate, uvula, fauces visible) LUNGS: Clear to auscultation HEART: Regular rate and rhythm, normal S1, S2 ABDOMEN: Normal bowel sounds, soft, non tender, non distended, A/P Proceed with the planned endoscopic procedure. ASA 2 - Patient with mild systemic disease with no functional limitations Sedation Plan: moderate (conscious sedation) Risks and benefits of the procedure explained to the patient. Consent signed. documented in this encounter Plan of Treatment Upcoming Encounters Date Type Specialty Care Team Description 12/15/2021 Hospital Encounter Gastroenterology Benjy Tavera MD [facility] [address] [place], [place] [address] 12/15/2021 Surgery Gastroenterology Benjy TaveraOSC Ben PULIDO MD DIAGNOSTIC [facility] [address] [place], [place] [address] Scheduled Procedures Name Priority Associated Diagnoses Date/Time COLONOSCOPY, DIAGNOSTIC 1 year colo 12/16/19 8:30 AM EST documented as of this encounter Procedures Procedure Name Priority Date/Time Associated Diagnosis Comme nts COLONOSCOPY, 12/14/2020 2:48 PM COLONOSCOPY- 1 YR DIAGNOSTIC EST SURVEILLANCE S/P RESECTION COLON CA COLONOSCOPY Routine 12/14/2020 2:35 PM Results f or this EST procedure are i n the results section. documented in this encounter Results COLONOSCOPY (12/14/2020 2:35 PM EST) [facility] Method Time Signature COLONOSCOPY [facility] Endoscopy Procedure Date: 12/14/2020 2:35 PM ? Patient Name: Bryan Marmolejo ? N: [id number] ? Date of : 1985 ? Age: 35 ? Order #: [id number] ? Instrument Name: LOANER SCOPE ? Procedure: ? Colonoscopy Indications: ? High risk colon cancer surveillance : ? Personal history of colon can cer Patient Profile: ? 35 yo M with personal history of ? colon cancer diagnosed 2019 ? presents for 1-year surveilla nce ? colonoscopy. Providers: ? Benjy Tavera, Hola Freitas, RN, ? Pedro Patterson Referring MD: ?Deb Esquedaess Medicines: ? Midazolam 5 mg IV, Fentanyl 200 ? micrograms IV Complications: ? No immediate complications. Procedure: ? Pre-Anesthesia Assessment: ? - Prior to the procedure, a H istory ? and Physical was performed, a nd ? patient medications and aller gies ? were reviewed. The patient is ? competent. The risks and bene fits of ? the procedure and the sedatio n ? options and risks were discus sed with ? the patient. All questions we re ? answered and informed consent was ? obtained. Patient identificat ion and ? proposed procedure were verif ied by ? the physician, the nurse and the ? commercial tire service technician in the pre-procedu re area ? in the procedure room. Mental Status ? Examination: alert and orient ed. ? Airway Examination: normal ? oropharyngeal airway and neck ? mobility. Respiratory Examina tion: ? clear to auscultation. CV ? Examination: normal. Prophyla ctic ? Antibiotics: The patient does not ? require prophylactic antibiot ics. ? Prior Anticoagulants: The pat ient has ? taken no previous anticoagula nt or ? antiplatelet agents. ASA Grad e ? Assessment: II - A patient wi th mild ? systemic disease. After revie wing the ? risks and benefits, the patie nt was ? deemed in satisfactory condit ion to ? undergo the procedure. The an esthesia ? plan was to use moderate tawana tion / ? analgesia (conscious sedation ). ? Immediately prior to administ ration ? of medications, the patient w as ? re-assessed for adequacy to r eceive ? sedatives. The heart rate, ? respiratory rate, oxygen satu rations, ? blood pressure, adequacy of p ulmonary ? ventilation, and response to care ? were monitored throughout the ? procedure. The physical statu s of the ? patient was re-assessed after the ? procedure. ? The procedure, indications, b enefits, ? risks and alternatives were e xplained ? to the patient. Specifically ? discussed were potential ? complications including, but not ? limited to, bleeding, perfora tion, ? infection, missing a cancer, and ? adverse medication reactions. The ? patient was placed in the lef t ? lateral decubitus position, a nd a ? digital rectal exam was perfo rmed. ? The was inserted in the anus and ? under direct visualization, a dvanced ? to the terminal ileum, with ? identification of the appendi ceal ? orifice and IC valve. Careful ? inspection was made as the ? colonoscope was withdrawn. Th e ? colonoscopy was performed wit cruz ? difficulty. The patient sissy ated the ? procedure well. The quality o f the ? bowel preparation was adequat e. 18 ? minute withdrawal time. ? Findings: ? The perianal and digital rectal examinations were ? normal. ? The terminal ileum appeared normal. ? The colon (entire examined portion) appeared normal. ? Widely patent end to end colo-colonic anastomosis at ? site of sigmoid resection. ? Moderate Sedation: ? Moderate (conscious) sedation was administered by the ? endoscopy nurse and supervised by the endoscopist. ? The following parameters were monitored: oxygen ? saturation, heart rate, blood pressure, and response ? to care. ? I was present during the intraservice time as ? documented by the sedation RN. Impression: ?- The examined portion of the ileu m ? was normal. ? - The entire examined colon i s normal. ? - Widely patent colo-colonic ? anastomosis from sigmoid rese ction. Recommendation: ?- Patient has a contact number ? available for emergencies. Th e signs ? and symptoms of potential del ayed ? complications were discussed with the ? patient. Return to normal act ivities ? tomorrow. Written discharge ? instructions were provided to the ? patient. ? - Repeat colonoscopy in 1 yea r, due ? around December 2021, given y oung age ? at time of colon cancer diagn osis ? (October 2019). ? Attending Participation: ? I personally performed the entire procedure. ? Benjy Tavera, 12/14/2020 3:32:49 PM Number of Addenda: 0 Note Initiated On: 12/14/2020 2:35 PM Specimen (Source) Anatomical Collection Method Collection Time Re ceived Time Location / / Volume Laterality 12/14/2020 2:35 PM EST Deb Vallejo MD GENERAL SURGICAL ORDERABLES Performing Organization Address City/State/ZIP Code Phon e Number [employer] documented in this encounter Visit Diagnoses Not on filedocumented in this encounter Active and Recently Administered Medications Due to Daylight Saving Time, this section may contain times in both EDT and EST. PRN Medication Order 12/12/2020 12/13/2020 12/14/2020 fentaNYL (pf) (50 mcg/mL) multi-dose injection (CANCELED) 1456 (Given - Provider: Hola Freitas RN)1459 (Given - Provider: Hola Freitas RN)1502 (Given - Provider: Hola Freitas RN)1505 (Given - Provider: Hola Freitas RN) ONCE PRN, Starting on Mon12/14/20 at 145 6, Until Mon12/14/20 at 1802, Intra- Operative (Intra-Procedure), Routine midazolam (pf) (Versed) (1 mg/mL) multi-dose injection (CANCELED ) 1456 (Given - Provider: Hola Freitas RN)1459 (Given - Provider: Hola Freitas RN)1502 (Given - Provider: Hola Freitas RN)1505 (Given - Provider: Hola Freitas RN) ONCE PRN, Starting on Mon12/14/20 at 145 6, Until Mon12/14/20 at 1802, Intra- Operative (Intra-Procedure), Routine documented in this encounter Care Teams Farm Mechanic Apprentice Relationship Specialty Start Date End Date Deb Vallejo MD PCP - General Family Medicine 06/16/20 11/10/[address] [facility] [address] [facility]EL [place] [address] documented as of this encounter
--- OUTSIDE RECORDS SUMMARY | 2021-12-08 13:30 | XMS_ITS | Encounter Summary ---
:1985 Author Organization [facility] [place] [address] Care Team Providers Name Role Phone Jayson Garcia MD Primary Care Provider Encounter Details Date Type Department Care Team Description 12/06/2021 Telephone Gastroenterology at [facility] [place] [address] Social History Tobacco Use Types Packs/Day Years [...] place to sleep or slept in a residential (including now)? Sex Assigned at Date Recorded Not on file documented as of this encounter Miscellaneous Notes Telephone Encounter - Yuriy Greenberg - 12/06/2021 3:37 PM EDT Bryan Marmolejo [id number] Diagnosis/Indication: 1 year colo Please review patient chart to confirm if previous Endoscopy procedure was performed within system. If yes, take note of Anesthesia type used. If previous procedure found, and with MAC/propofol Anesthesia support was used, schedule this procedure with Anesthesia and skip the Anesthesia portion of qu estions. If not performed within system, not performed at all, or performed with IVCS, ask Anesthesia questions. SCHEDULING QUESTIONS (ask all patient these questions) 1. Have you ever had a/an Colonoscopy before? Yes: Date 12-14-20 If yes, did you have any problems with the procedure (such as waking up during the procedure, pain or difficulties afterwards, etc.)? No What type of sedation was used: IV Conscious Sedation 2. Do you take any blood thinners or have you been diagnosed with a bleeding disorder that increasesyour risk of bleeding with procedures? No 3. Do you have a Pacemaker or Defibrillator device? If yes, send pool message to Cardiology with patient information and date or procedure. No 4. Are you a diabetic? If yes, call PCP/managing provider to discuss use of prep and any questions or concerns related to. No 5. Do you take any iron supplements or vitamins that contain iron? No 6. Do you have a preference regarding the gender of your provider? No ANESTHESIA QUESTIONS (YES to any question, please book with Anesthesia support) 7. Have you ever been diagnosed with any of the following: Pulmonary Hypertension, Atrial Fibrillation (A-Fib) and/or Congential Heart Disease? No 8. Have you ever had an allergic or adverse reaction to Fentanyl or Versed? No 9. Have you had a problem with sedation or anesthesia? (Waking up during procedure, extreme confusion after, etc.) No 10. Do you have a diagnosis of Obstructive Sleep Apnea? No 11. Do you use a c-pap machine? Neither 12. Do you use an oxygen tank at home? No 13. Do you use a rescue inhaler more than twice per day? (COPD, severe asthma) No 14. Do you experience breathing problems when you lay flat for a period of time? No 15. Do you take prescription narcotic pain medications, including suboxone or methodone? No SCHEDULING CONFIRMATIONS: Please note any and all parts of your conversation with the patient here. 16. We offer all new patients an opportunity to have an appointment with one of our associate care providers to learn more about your upcoming procedure, ask questions and get answers. These appointments are offered via telehealth. Would you be interested in scheduling this appointment? (Only ask if NEW referral patient; skip this question if [facility] provider ordered the procedure.) No 17. Is there any other information or concerns you would like to us to share with your care team in relation to your upcoming scheduled procedure? No 18. You must have a responsible green party who will drive you to your procedure, stay on campus for the entire duration of your procedure, and drive you home from your procedure. Who will likely be your airport driver for the procedure? *Please Verify the height and weight, and adjust if height and/or weight have changed* Estimated body mass index is 26.44 kg/m?? as calculated from the following: Height as of 11/30/21: 182.9 cm (6' 0.01). Weight as of 11/30/21: 88.5 kg (195 lb). Age:36 y.o. documented in this encounter Plan of Treatment Upcoming Encounters Date Type Specialty Care Team Description 12/15/2021 Hospital Encounter Gastroenterology Benjy Tavera MD [facility] [place]STRO[place], [place] [address] 12/15/2021 Surgery Gastroenterology Benjy Tavera COLONOSC Ben PULIDO MD DIAGNOSTIC [facility] [place]STRO[place], [place] [address] Scheduled Procedures Name Priority Associated Diagnoses Date/Time COLONOSCOPY, DIAGNOSTIC 1 year colo 12/16/19 8:30 AM EST documented as of this encounter Visit Diagnoses Not on filedocumented in this encounter Care Teams Skidder Loader Relationship Specialty Start Date End Date Jayson Garcia MD PCP - General 11/11/21 18 [place] [address] documented as of this encounter
--- OUTSIDE RECORDS SUMMARY | 2021-12-08 13:30 | XMS_ITS | Encounter Summary ---
:1985 Author Organization [facility] [place] [address] Care Team Providers Name Role Phone Deb Vallejo MD Primary Care Provider Encounter Details Date Type Department Care Team Description 12/14/2020 Surgery Gastroenterology at [facility] Benjy Tavera, COLONOSCOPY, [facility] [place] [address] [facility] [phone] DR GASTROENTEROLOGY [place], [place] [address] Social History Tobacco Use Types Packs/Day Years [...] occurs, please contact your Doctor. Please call [phone] before 8pm Mon-Fri with problems, questions or concerns. If you call after 8pm or on weekends, call the Hospital at [phone] and ask to speak to the Student Recruiter operations inspector and the scale and skip car operator will contact that person for you. When should you call for help? Call [phone] anytime you think you may need emergency [...] any problems. Where can you learn more? [facility] View your After Visit Summary and more online at [email or web address] If you would like to provide feedback about your hospital experience, please call the Office of Patient and Family Relations at . If you have received this After Visit Summary in error, please immediately return it in person to the department, or notify the [facility] Privacy Office by calling toll free at between the hours of 8AM and 5PM to arrange for our retrieval of the documents at no cost to you. Content Version: 12.2 ?? 1151-7652 [employer]. Care instructions adapted under license by [facility]. If you have questions about a medical condition or this instruction, always ask your healthcare professional. [employer] disclaims any warranty or liability for your [...] 12/15/2021 Hospital Encounter Gastroenterology Benjy Tavera MD [facility] [address] [place], [place] [address] 12/15/2021 Surgery Gastroenterology Benjy Tavera COLONOSC Ben PULIDO MD DIAGNOSTIC [facility] [address] [place], [place] [address] Scheduled Procedures Name Priority Associated [...] encounter Results COLONOSCOPY (12/14/2020 2:35 PM EST) [facility] Method Time Signature COLONOSCOPY [facility] PROVATION Endoscopy Procedure Date: 12/14/2020 2:35 PM ? Patient Name: Bryan Marmolejo ? N: [id number] ? Date of : 1985 ? Age: 35 ? Order #: [id number] ? Instrument Name: LOANER SCOPE ? Procedure: ? Colonoscopy Indications: ? High risk colon cancer surveillance : ? Personal history of colon can cer Patient Profile: ? 35 yo M with personal history of ? colon cancer diagnosed Sept2019 ? presents for 1-year surveilla nce ? colonoscopy. Providers: ? Benjy Tavera, Hola Freitas, RN, ? Pedro Patterson Referring MD: ?Deb Vallejo Medicines: ? Midazolam 5 mg IV, Fentanyl [...] the physician, the nurse and the ? gis technician in the pre-procedu re area ? [...] withdrawn. Th e ? colonoscopy was performed beronica arroyo ? difficulty. The patient sissy ated the [...] Diagnoses Not on filedocumented in this encounter Administered Medications Inactive Administered Medications - up to 3 most recent administrations Medication Order MAR Action Action Date Dose Rate Site fentaNYL (pf) (50 mcg/mL) Given 12/14/2020 3:05 PM EST 50 mcg multi-dose injection ONCE PRN, Starting on Mon12/14/20 at 1456, Until Mon12/14/20 at 1802, Intra-Operative (Intra-Procedure), Routine Given 12/14/2020 3:02 PM EST 50 mcg Given 12/14/2020 2:59 PM EST 50 mcg midazolam (pf) (Versed) (1 mg/mL) multi-dose Given 12/14/2020 3: 05 PM EST 1 mg injection ONCE PRN, Starting on Mon12/14/20 at 1456, Until Mon12/14/20 at 1802, Intra-Operative (Intra-Procedure), Routine Given 12/14/2020 3:02 PM EST 1 mg Given 12/14/2020 2:59 PM EST 1 mg documented in this encounter Active and Recently Administered [...] (CANCELED ) 1456 (Given - Provider: Hola Freitas, RN)1459 (Given - Provider: Hola Freitas RN)1502 (Given - Provider: Hola Freitas RN)1505 (Given - Provider: Hola Freitas RN) ONCE PRN, Starting on Mon12/14/20 at 145 6, Until Mon12/14/20 at 1802, Intra- Operative (Intra-Procedure), Routine documented in this encounter Care Teams Map Colorer Relationship Specialty Start Date End Date Deb Vallejo MD PCP - General Family Medicine 06/16/20 11/10/[address] [facility] [address] MANUEL ESTEVEZ-FAMILY [place], [place] [phone] documented as of this encounter
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
--- OUTSIDE RECORDS SUMMARY | 2021-12-08 13:31 | XMS_ITS | Encounter Summary ---
:1985 Author Organization [facility] [place] [address] Care Team Providers Name Role Phone Jose Cruz Ivy MD Primary Care Provider Encounter Details Date Type Department Care Team Description 08/01/2019 Telephone [facility] Primary Care Jacqueline May at [facility] [address] [place] [address] Social History Tobacco Use Types Packs/Day Years Used Date Never Smoker Smokeless Tobacco: Never Used Alcohol Use Standard Drinks/Week Comments Yes 0 (1 standard drink = 0.6 oz pure alcoho l) couple drinks per month Alcohol Habits Answer Date Recorded How often do you have a drink containing Not asked alcohol? How many drinks containing alcohol do you have Not asked on a typical day when you are drinking? How often do you have six or more drinks on one Not asked occasion? Comment: couple drinks per month 12/22/2014 Physical Activity Answer Date Recorded On average, [...] this encounter Miscellaneous Notes Telephone Encounter - Jacqueline May - 08/01/2019 12:59 PM EDT Faxed referral for physical therapy to [facility] in [place], [place] at [phone] documented in this encounter Plan of Treatment Upcoming Encounters Date Type Specialty Care Team Description 12/15/2021 Hospital Encounter Gastroenterology Benjy Tavera MD [facility] [address] [place], [place] [address] 12/15/2021 Surgery Gastroenterology Benjy Tavera COLONOSC Ben PULIDO MD DIAGNOSTIC [facility] DR [place], [place] [address] Scheduled Procedures Name Priority Associated Diagnoses Date/Time COLONOSCOPY, DIAGNOSTIC 1 year colo 12/16/19 22 8:30 AM EST documented as of this encounter Visit Diagnoses Not on filedocumented in this encounter Care Teams Director Of Philanthropy Relationship Specialty Start Date End Date Jose Cruz Ivy MD PCP - General Family Medicine 07/19/17 09/12/19 [place] [address] documented as of this encounter
--- OUTSIDE RECORDS SUMMARY | 2021-12-08 13:31 | XMS_ITS | Encounter Summary ---
:1985 Author Organization [facility] [place] [address] Care Team Providers Name Role Phone Lily Warren APRN Primary Care Provider Encounter Details Date Type Department Care Team Description 12/02/2019 Telephone General Surgery at [facility] [address] Social History Tobacco Use Types Packs/Day [...] place to sleep or slept in a prison (including now)? Sex Assigned at Date Recorded Not on file documented as of this encounter Miscellaneous Notes Telephone Encounter - Malu Rascon RN - 12/02/2019 9:40 AM EDT Images from the original note were not included. I received voice mail messages from Bryan who is a 34 y.o. male who is s/p Robotic LAR with primary anastomosis for adenocarcinoma done on November 11, he was discharged the . I called Bryan back he reports having abdominal cramping pain, two episodes of vomiting last night around 8 pm. He said he passed bright red blood per rectum this morning and is feeling very weak and fatigued. He denies orthostatic signs- ie no lightheadedness or dizziness with position changes or movement. He is with his at home. I have recommended they seek care at the emergency room- he was advised to do so last evening when he spoke to the doctor bonsai tender. He knows he can go to his local emergency department or come to [facility]. He said he prefers to come to [facility]. Please see note below. Telephone Encounter Signed Encounter Date: 12/01/2019 I called the patient at 6:43 PM. Bryan Marmolejo is a 34 y.o. male who is s/p Robotic LAR with primary anastomosis for adenocarcinoma with Dr. Olena Dominique I received a phone call from his regarding sudden onset nausea and nonbloody vomiting 2 hours ago associated with left lower quadrant pain that is worse with movement. He has been having normal bowel movements, nonbloody, and has been tolerating diet up until this evening. He is currently in excruciating pain and is unable to move. He denies a fever. I have recommended that he should come in fora formal evaluation in the ED. Bryan Marmolejo and his agree with this plan. ?? This note will be routed to the provider mentioned above. Kashif Handley MD ??6:47 PM documented in this encounter Plan of Treatment Upcoming Encounters Date Type Specialty Care Team Description 12/15/2021 Hospital Encounter Gastroenterology Benjy Tavera MD [facility] GASTRO[place]ERI [place], [place] [address] 12/15/2021 Surgery Gastroenterology Benjy Tavera COLONOSC Ben PULIDO MD DIAGNOSTIC [facility] [place], [place] [address] Scheduled Procedures Name Priority Associated Diagnoses Date/Time COLONOSCOPY, DIAGNOSTIC 1 year colo 12/16/19 22 8:30 AM EST documented as of this encounter Visit Diagnoses Not on filedocumented in this encounter Care Teams Strip Winder Relationship Specialty Start Date End Date Lily Warren APRN PCP - General Family Medicine 11/11/19 06/15/20 documented as of this encounter
--- OUTSIDE RECORDS SUMMARY | 2021-12-08 13:31 | XMS_ITS | Encounter Summary ---
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 on auscultation Lymph: no edema noted Abdomen: soft, non-tender, and not distended, no masses or organomegaly Ext: no cyanosis Labs: reviewed. Endoscopy: reviewed. Path: reviewed. Imaging: reviewed. COREFO Responses 11/11/2019 Incontinence Scale 0 Social Impact Scale 0 Frequency Scale 12.5 Stool Releated Aspects 25 Medication Scale 0 Total COREFO Score 3.84 The COREFO questionnaire is a validated questionnaire with 27 questions to assess colorectal functional outcome. Patients are asked to consider the two week period prior before filling out the questionnaire. Category scores range from zero to 100. A total score is calculated from the categories above,also ranging from zero to 100. A higher score represents an increased level of functional disturbance. Impression/Plan: Bryan Marmolejo is a 34 y.o. male with newly diagnosed invasive adenocarcinoma of the sigmoid colon, present at the cauterized margin of polypectomy, with no evidence of distant metastatic disease CT scan. Discussed that given the presence of invasive adenocarcinoma at the margin would recommend proceeding with sigmoid resection to remove residual tumor and for lymph node staging. Discussed the possibility of having no residual disease on final pathology. Risk of surgery discussed with the patient and his including bleeding, infection, possible need for diversion, cardiopulmonary risks associated with anesthesia. We will plan to proceed with robotic assisted low anterior resection as soon as tomorrow. We will plan for bowel prep today. CEA was drawn today and level pending.Postoperatively we will discuss need for genetic counseling given his young age. Baudilio Jacob MD I examined and evaluated Bryan Marmolejo with the colorectal surgery team and the patient's assigned nurse. I agree with the assessment and plan as outlined above with the following notations. Otherwise healthy male with history of malignant polyp discovering during work up for bleeding per rectum. Discussed minimally invasive sigmoid resection and potential for no residual disease on final pathology, however counseled evaluation of potential lymph node involvement is unknown without resection, and the risk is approximately 25% for LN involvement in this scenario. CEA is in the normal range at 1.2. All of his and his ';s questions were answered to their collective satisfaction and I will see him next for surgery. Bryson Dominique MD MSc FACS [employer] sound equipment mechanic Division of Colon and Rectal Surgery [facility] Pager [phone] Nikki Haynes RN - 11/11/2019 8:00 AM EDT The patients pharmacy was confirmed. The patient received instructions on ERAS/ABX cleansing bowel prep, DVT prevention, Hibiclens wash, and what to expect after surgery. The patient had no additional questions at this time and was provided with the telephone number to call with any questions regarding the information that we went over today. documented in this encounter Plan of Treatment Upcoming Encounters Date Type Specialty Care Team Description 12/15/2021 Hospital Encounter Gastroenterology Benjy Tavera MD [facility] [place] [address] 12/15/2021 Surgery Gastroenterology Benjy Tavera COLONOSC Ben PULIDO MD DIAGNOSTIC [facility] [address] [place], [place] [address] Scheduled Procedures Name Priority Associated Diagnoses Date/Time COLONOSCOPY, DIAGNOSTIC 1 year colo 12/16/19 22 8:30 AM EST documented as of this encounter Visit Diagnoses Diagnosis Malignant neoplasm of sigmoid colon documented in this encounter Care Teams Bumboater Relationship Specialty Start Date End Date Lily Warren APRN PCP - General Family Medicine 11/11/19 06/15/20 documented as of this encounter
--- OUTSIDE RECORDS SUMMARY | 2021-12-08 13:31 | XMS_ITS | Encounter Summary ---
:1985 [place] [address] Care Team Providers Name Role Phone Kelvin [address] Primary Care Provider Encounter Details Date Type Department Care Team Description 12/04/2019 Telephone Emergency Department Benjy Campa PA [facility] [place] [address] [place] [address] [phone] Social History Tobacco Use Types Packs/Day Years [...] place to sleep or slept in a senior living (including now)? Sex Assigned at Date Recorded Not on file documented as of this encounter Miscellaneous Notes Telephone Encounter - Benjy Hardy PA - 12/04/2019 7:46 AM EDT Spoke with patient. Date of confirmed. Notified him of positive C. difficile test. We will treat with vancomycin 125 mg orally 4 times daily x10 days. Advised to follow-up with primary care and colorectal surgery. Advised handwashing and bleach to clean his house/bathroom. documented in this encounter Plan of Treatment Upcoming Encounters Date Type Specialty Care Team Description 12/15/2021 Hospital Encounter GastroenterBenjy Black MD [facility] [address] [place] [address] 12/15/2021 Surgery Gastroenterology Benjy Tavera COLONOSC Ben PULIDO MD [facility] [address] [place], [place] [address] Scheduled Procedures Name Priority Associated Diagnoses Date/Time COLONOSCOPY, DIAGNOSTIC 1 year colo 12/16/19 8:30 AM EST documented as of this encounter Visit Diagnoses Not on filedocumented in this encounter Additional Health Concerns Infection Onset Date Last Indicated Resolved Time C. difficile 12/02/2019 12/02/2019 03/01/2020 8:09 PM EST documented as of this encounter Care Teams Hr Assistant Relationship Specialty Start Date End Date Lily Warren APRN PCP - General Family Medicine 11/11/19 06/15/20 documented as of this encounter
--- OUTSIDE RECORDS SUMMARY | 2021-12-08 13:31 | XMS_ITS | Encounter Summary ---
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 approximate 15 cm segment of p roximal to mid descending colon is abnormal with colonic wall thickening an d luminal narrowing, new since the previous study. A new descending colon/s igmoid colon anastomotic suture line is seen distal to this. There is focal colo yoni narrowing at the suture line with colonic wall thickening. Distal to this, the sigmoid colon and rectum are unremarkable. No bowel obstruction. The terminal ileum is normal. Lower chest: Normal. Liver: Normal size and attenuation witho ut lesions. Bile ducts: Nondilated. Gallbladder: No calcified gallstones. No rmal caliber wall. Pancreas: Normal attenuation without omi marta dilatation. Spleen: Normal. Adrenals: Normal. Kidneys: Symmetric enhancement. No colle cting system obstruction bilaterally. Urinary Bladder: Normal. Vasculature: No aneurysm. The mesenteric vessels are widely patent. Lymph Nodes: No enlarged lymph nodes. Peritoneum and mesentery: Mild stranding is seen in the pelvic fat on the RIGHT. This is likely postprocedural. Mild stra nding is seen in the fat abutting/surrounding the above-described segment of abnormal descending colon. Abdominal wall: A midline anterior pelvi c wall subcutaneous collection is noted, likely a hematoma related to the recent surgery. Reproductive organs: Normal. Osseous structures: No suspicious lesion s. Procedure Note Benjy Freeman MD - 12/02/2019Form atting of this note might be different from the original. EXAMINATION: CT ABDOMEN AND PELVIS W CON TRAST CLINICAL HISTORY: Nausea/vomiting recent colectomy hx of adenocarcinoma. I n ED with nausea, cramping, vomiting and rectal bleeding. TECHNIQUE: Helical CT of the abdomen and pelvis was performed following the intravenous administration of contrast. 98 cc of Omnipaque 350. COMPARISON: 11/10/2019 FINDINGS: Bowel: An approximate 15 cm segment of p roximal to mid descending colon is abnormal with colonic wall thickening an d luminal narrowing, new since the previous study. A new descending colon/s igmoid colon anastomotic suture line is seen distal to this. There is focal colo yoni narrowing at the suture line with colonic wall thickening. Distal to this, the sigmoid colon and rectum are unremarkable. No bowel obstruction. The terminal ileum is normal. Lower chest: Normal. Liver: Normal size and attenuation witho ut lesions. Bile ducts: Nondilated. Gallbladder: No calcified gallstones. No rmal caliber wall. Pancreas: Normal attenuation without omi marta dilatation. Spleen: Normal. Adrenals: Normal. Kidneys: Symmetric enhancement. No colle cting system obstruction bilaterally. Urinary Bladder: Normal. Vasculature: No aneurysm. The mesenteric vessels are widely patent. Lymph Nodes: No enlarged lymph nodes. Peritoneum and mesentery: Mild stranding is seen in the pelvic fat on the RIGHT. This is likely postprocedural. Mild stra nding is seen in the fat abutting/surrounding the above-described segment of abnormal descending colon. Abdominal wall: A midline anterior pelvi c wall subcutaneous collection is noted, likely a hematoma related to the recent surgery. Reproductive organs: Normal. Osseous structures: No suspicious lesion s. IMPRESSION 1. An approximate 15 cm segment of proxi mal to mid descending colon is abnormal with colonic wall thickening and luminal narrowing, new since the previous study. The etiology is likely infectious or inflammatory, and not ischemic as the mesenteric vessels are widely patent . 2. A new descending colon/sigmoid colon anastomotic suture line is seen distal to this. There is focal colonic narrowin g at the suture line with colonic wall thickening. Cannot exclude a postoperati ve stricture. Distal to this, the sigmoid colon and rectum are unremarkabl e Thank you for letting us participate in the care of this patient. For questions regarding this report, please contact e number below. Alejandro De Paz DO IMG CT ORDERABLES ABORH Recheck Status (12/02/2019 12:23 PM EDT) [facility] Method Time Signature ABORH Recheck Order Placed [facility] K Order [facility] ABORH Type Complete [facility] LABORATORY Specimen Anatomical Collection Method Collection Time Receive d Time (Source) Location / / Volume Laterality Blood specimen 12/02/2019 12:23 0 (specimen) PM EDT 12:23 PM EDT Resulting Agency Comment Spec In Lab Tracie Moore MD BLOOD BANK ORDERABLES Performing Organization Address City/[facility]/[place] [address] Antibody screen (12/02/2019 12:23 PM EDT) [facility] Method Time Signature Ab Screen Negative [facility] LABORATORY Expires at 12/05/2019 [facility] [id number] on: [facility] Specimen Anatomical Collection Method Collection Time Receive d Time (Source) Location / / Volume Laterality Blood specimen 12/02/2019 12:23 0 (specimen) PM EDT 12:23 PM EDT Resulting Agency Comment Spec In Lab Tracie Moore MD BLOOD BANK ORDERABLES Performing Organization Address City/[facility]/[place] [address] ABO/Rh Typing (12/02/2019 12:23 PM EDT) P athologist Signature ABORh Type O Pos [facility] Specimen Anatomical Collection Method Collection Time Receive d Time (Source) Location / / Volume Laterality Blood specimen 12/02/2019 12:23 0 (specimen) PM EDT 12:23 PM EDT Resulting Agency Comment Spec In Lab Tracie Moore MD BLOOD BANK ORDERABLES Performing Organization Address City/[facility]/[place] [address] APTT (12/02/2019 11:30 AM EDT) athologist Signature PTT 31 25 - 37 sec [facility] Comment: The PTT is NOT appropriate for heparin m onitoring. Use the Anti-Xa level for heparin monitoring (HEP UFH) or LMWH mon itoring (HEP LMW). A PTT less than 37 seconds generally indicates adequate hem ostasis. Specimen Anatomical Collection Method Collection Time Receive d Time (Source) Location / / Volume Laterality Blood specimen Venous Draw / 12/02/2019 11:30 12/02/19 20 (specimen) Unknown AM EDT 11:39 AM EDT Resulting Agency Comment Spec In Lab Jaspal FAJARDO HEMATOLOGY ORDERABLES Performing Organization Address City/State/[place] [address] Gold Tube HOLD (12/02/2019 11:30 AM EDT) athologist Signature Gold Hold Sample in [facility]. [facility] Specimen Anatomical Collection Method Collection Time Receive d Time (Source) Location / / Volume Laterality Blood specimen Venous Draw / 12/02/2019 11:30 12/02/19 20 (specimen) Unknown AM EDT 11:40 AM EDT Tracie Moore MD CHEMISTRY ORDERABLES Performing Organization Address City/State/[place] [address] (ABNORMAL) Differential, Automated (12/02/2019 11:30 AM EDT) [facility] gist Method Time Signature Neutrophils % 76.9 % [facility] Neutr Abs (ANC) 8.05 (H) 1.70 - [facility] 6.10 [facility] x10(3)/[facility] LABORATORY Lymphocytes % 14.6 % [facility] Lymphocytes Abs 1.5 0.9 - 3.2 [facility] x10(3)/[facility] LABORATORY Monocytes % 7.5 % [facility] Monocyte Abs 0.8 0.3 - 0.9 [facility] x10(3)/[facility] LABORATORY Eosinophils % 0.3 % [facility] Eosinophils Abs 0.0 0.0 - 0.4 [facility] x10(3)/[facility] LABORATORY Basophils % 0.3 % [facility] Basophils Abs 0.0 0.0 - 0.1 [facility] x10(3)/[facility] LABORATORY Immature Gran % 0.40 % [facility] Comment: Immature granulocytes(IG's)percentage an d absolute count will include metamyelocytes, myelocytes, and promyelo cytes. Blood smears from CBCs yielding IG's will be scanned manually for concor dance. If this scan disagrees with the automated IG or if promyelocytes are not ed, a manual differential will be performed. Jennifer Gran Abs 0.04 0.00 - 0.04 x10(3)/[facility] Specimen Anatomical Collection Method Collection Time Receive d Time (Source) Location / / Volume Laterality Blood specimen 12/02/2019 11:30 0 (specimen) AM EDT 11:39 AM EDT Resulting Agency Comment Spec In Lab Tracie Moore MD HEMATOLOGY ORDERABLES Performing Organization Address City/State/ZIP Code Phon e Number [place] [phone] (ABNORMAL) Hemogram (12/02/2019 11:30 AM EDT) Analysis Performed At Patho logist Time Signature WBC 10.5 (H) 4.0 - 9.5 [facility] x10(3)/[facility] LABORATORY RBC 4.95 4.58 - [facility] 5.54 [facility] x10(6)/[facility] LABORATORY Hemoglobin 14.9 13.7 - [facility] 16.[facility] g[facility]/dL [facility] Hematocrit 43.4 40.5 - [facility] 48.5 % [facility] MCV 87.7 82.9 - [facility] 93.1 fL [facility] MCH 30.1 27.5 - [facility] 32.1 pg [facility] MCHC 34.3 32.0 - [facility] 35.7 gm/dL [facility] Platelets 349 145 - 357 [facility] x10(3)/[facility] LABORATORY RDWSD 38.2 36.0 - [facility] 45.0 [facility] LABORATORY RDWCV 11.9 11.4 - [facility] 13.8 % [facility] MPV 9.7 7.6 - 12.9 [facility] LABORATORY nRBC % Auto 0.0 % [facility] nRBC Abs Auto 0.000 0.000 - [facility] 0.000 [facility] x10(3)/[facility] LABORATORY Specimen Anatomical Collection Method Collection Time Receive d Time (Source) Location / / Volume Laterality Blood specimen 12/02/2019 11:30 0 (specimen) AM EDT 11:39 AM EDT Resulting Agency Comment Spec In Lab Tracie Moore MD HEMATOLOGY ORDERABLES Performing Organization Address City/State/[place] [address] Basic Metabolic Panel (non-fasting) (12/02/2019 11:30 AM EDT) P athologist Signature Glucose Lvl 94 65 - 199 [facility] mg/dL [facility] Comment: Diabetes: >=200 mg/dL plus symp toms BUN 17 10 - 20 mg/dL [facility] Creatinine 1.07 0.80 - 1.50 mg/dL [facility] Sodium 136 135 - 145 mmol/L [facility] Potassium 4.1 3.5 - 5.0 mmol/L [facility] Comment: Please note: ??Patients with WBC >100,00 0 may have falsely elevated Potassium levels. ??For accurate Potassium quantif ication in these patients send serum separator tube (gold top) for subsequent determinations. ??Contact the Clinical Chemistry Laboratory if there are any qu estions. Chloride 99 98 - 107 mmol/L [facility] CO2 27 22 - 31 mmol/L [facility] Anion Gap 10 5 - 15 mmol/L [facility] Calcium 9.4 8.5 - 10.5 mg/dL [facility] Estimated GFR 90 >=60 mL/min/1.73 m?? [facility] Comment: The eGFR was calculated using the CKD-EP I equation. As with all creatinine based estimates of kidney function, eGFR values calculated with the CKD-EPI equation are not accurate in patients wi th acute kidney failure, extremes of body mass or the acutely ill. [email or web address] eGFR 104 >=60 mL/min/1.73 m?? [facility] Comment: The eGFR was calculated using the CKD-EP I equation. As with all creatinine based estimates of kidney function, eGFR values calculated with the CKD-EPI equation are not accurate in patients wi th acute kidney failure, extremes of body mass or the acutely ill. [email or web address] PR[facility]nkf Specimen Anatomical Collection Method Collection Time Receive d Time (Source) Location / / Volume Laterality Blood specimen 12/02/2019 11:30 0 (specimen) AM EDT 11:39 AM EDT Resulting Agency Comment Spec In Lab Tracie Moore MD CHEMISTRY ORDERABLES Performing Organization Address City/State/[place] [address] (ABNORMAL) Prothrombin Time (12/02/2019 11:30 AM EDT) P athologist Signature PT 14.0 (H) 9.4 - 12.5 [facility] LABORATORY INR 1.2 [facility] Comment: An INR <2.0 indicates adequate procoagul ant activity for hemostasis in most patients without underlying bleeding dis orders, though the INR may not adequately reflect hemostatic capacity i n patients with liver disease and synthetic impairment. The recommended ta rget INR range for therapeutic anticoagulation is 2.0 ? 3.0 for most applications, though lower and higher ranges may be appropriate depending on c linical circumstances. Specimen Anatomical Collection Method Collection Time Receive d Time (Source) Location / / Volume Laterality Blood specimen 12/02/2019 11:30 0 (specimen) AM EDT 11:39 AM EDT Resulting Agency Comment Spec In Lab Tracie Moore MD HEMATOLOGY ORDERABLES Performing Organization Address City/State/[place] [address] documented in this encounter Visit Diagnoses Diagnosis Abdominal pain, unspecified abdominal lo cation documented in this encounter Administered Medications Inactive Administered Medications - up to 3 most recent administrations Medication Order MAR Action Action Date Dose Rate Site iohexoL (Omnipaque) 350 mg/mL Given 12/02/2019 2:20 PM EDT 98 mL s solution 0-200 mL 0-200 mL, Intravenous, ONCE PRN, 1 dose, Starting on Mon12/02/19 at 1420, Until Mon12/02/19 at 1420, Per Protocol, Warning Vesicant/Irritant Medication , Radiology Contrast, Routine lactated Ringers 1,000 mL IV bolus New Bag 12/02/2019 4:09 PM EDT 2000 mL/hr at 2,000 mL/hr, Intravenous, ONCE, 1 dose, On Mon12/02/19 at 1609 documented in this encounter Active and Recently Administered Medications Times are shown in EDT. Scheduled Medication Order 11/30/2019 12/01/2019 12/02/2019 lactated Ringers 1,000 mL IV bolus (COMPLETED) 1609 (New Bag - Provider: Dana Cason, BEATA)1700 (Stopped - Provider: Dana Cason, BEATA) at 2,000 mL/hr, Intravenous, ONCE, 1 dose, Mon12/02/19 at 1609 PRN Medication Order 11/30/2019 12/01/2019 12/02/2019 iohexoL (Omnipaque) 350 mg/mL solution 0-200 mL (COMPLETED) 1420 (Given - Provider: Dafne Freitas) 0-200 mL, Intravenous, ONCE PRN, 1 dose, Starting Mon12/02/19 at 1420, Until Mon12/02/19 at 1420, Per Protocol, Warning Vesicant/Irritant Medication , Radiology Contrast, Routine documented in this encounter Additional Health Concerns Infection Onset Date Last Indicated Resolved Time Rule Out C. difficile 12/02/2019 12/02/2019 12/03/2019 2:02 PM EDT documented as of this encounter Care Teams Fire Protection Specialist Relationship Specialty Start Date End Date Lily Warren APRN PCP - General Family Medicine 11/11/19 06/15/20 documented as of this encounter
--- OUTSIDE RECORDS SUMMARY | 2021-12-08 13:31 | XMS_ITS | Encounter Summary ---
:1985 [place] [address] Care Team Providers Name Role Phone Lily Warren APRN Primary Care Provider Encounter Details Date Type Department Care Team Description 11/11/2019 Telephone [facility] [place] [phone] Social History Tobacco Use Types Packs/Day [...] place to sleep or slept in a alf (including now)? Sex Assigned at Date Recorded Not on file documented as of this encounter Miscellaneous Notes Telephone Encounter - Kayla Flores - 11/11/2019 10:33 AM EDT 1. ASK: TRAVEL ???Have you travelled outside of [place] ([place], [place], [place], [place], [place], [place]) in the past 14 days??? 2. ASK: EXPOSURE Have you been in contact with anyone suspected or confirmed to have COVID-19 in the past 14 days??? 3. ASK: SYMPTOMS Do you have any new or worsening symptoms on this list that are not related to another medical condition? Fever or chills ?? Cough ?? Shortness of breath or difficulty breathing ?? Fatigue ?? Muscle or body aches ?? Headache ?? Loss of taste or smell ?? Sore throat ?? Congestion or runny nose ?? Nausea or vomiting ?? Diarrhea If 'Yes' to any of the questions above Transfer patient to the Covid-19 Hotline Number ([phone]) for further instructions. If 'No' to all of the questions above Is this the first test for Covid 19 Yes If no, please list date of previous test, result, and type of test (Molecular, Antigen, Antibody or unknown): Resides in congregate care setting No Employee or Household Member of Employee No Healthcare Worker No Schedule appointment: Give directions to testing facility. Please advise patient that all passengersin the vehicle must wear a mask and to please either leave their dogs at home or have them crated/behind a net. Telephone call placed/received to schedule Covid 19 testing with patient. Ordering provider: Trip Testing Facility: [facility] Date of Testin/5 Time of Testin:10am Symptoms: no documented in this encounter Plan of Treatment Upcoming Encounters Date Type Specialty Care Team Description 12/15/2021 Hospital Encounter Gastroenterology Benjy [facility]aver[facility] [address] 12/15/2021 Surgery Gastroenterology Benjy Tavera COLONOSC Ben PULIDO MD DIAGNOSTIC [facility] [address], [place] [address] Scheduled Procedures Name Priority Associated Diagnoses Date/Time COLONOSCOPY, DIAGNOSTIC 1 year colo 12/16/19 22 8:30 AM EST documented as of this encounter Visit Diagnoses Not on filedocumented in this encounter Additional Health Concerns Infection Onset Date Last Indicated Resolved Time Rule Out C. difficile 12/02/2019 12/02/2019 12/03/2019 2:02 PM EDT C. difficile 12/02/2019 12/02/2019 03/01/2020 8:09 PM EST documented as of this encounter Care Teams Psychiatric Orderly Relationship Specialty Start Date End Date Lily Warren APRN PCP - General Family Medicine 11/11/19 06/15/20 documented as of this encounter
--- OUTSIDE RECORDS SUMMARY | 2021-12-08 13:31 | XMS_ITS | Encounter Summary ---
:1985 Author Organization [facility] [place] [address] Care Team Providers Name Role Phone Deb Vallejo MD Primary Care Provider Reason for Referral Diagnostic Test (Emergency) - Closed Specialty Diagnoses / Procedures Referred By Contact Refer red To Contact Radiology Diagnoses Adenocarcinoma of colon Janine Smith MD [facility] Rad Ct Scan Procedures CT Chest Abdomen Pelvis w Contrast (Generic) [facility] [place] [address] [place] [address] Referral ID Status Reason Start Date Expiration Date Visits V isits Requested Authorized [id number] Closed Specialty 11/06/2019 05/05/2021 1 1 Service Requested Reason for Visit Diagnostic Test (Emergency) - Closed Specialty Diagnoses / Procedures Referred By Contact Refer red To Contact Radiology Diagnoses Adenocarcinoma of colon Janine Smith MD [facility] Rad Ct Scan Procedures CT Chest Abdomen Pelvis w Contrast (Generic) [facility] [place] [address] [place] [address] Referral ID Status Reason Start Date Expiration Date Visits V isits Requested Authorized [id number] Closed Specialty 11/06/2019 05/05/2021 1 1 Service Requested Encounter Details Date Type Department Care Team Description 11/10/[address] [place] [facility] Janine Smith, Adenocarcinoma of [facility] MD josh Briones [place], [place] C[place] [address] GASTROENTEROLOG [phone] [place] [address] Social History Tobacco Use Types Packs/Day Years [...] on file documented as of this encounter Medications at Time of Discharge Medication Sig Dispensed Refills Start Date End Date famotidine (Pepcid) 40 mg Take 1 tablet by 60 tablet 1 06/0712/02/2019 Tablet mouth daily. cyclobenzaprine (Flexeril) Take 1 tablet by 30 tablet 1 12/02/2019 10 mg Tablet mouth 3 times daily as needed for Muscle spasms. documented as of this encounter Plan of Treatment Upcoming Encounters Date Type Specialty Care Team Description 12/15/2021 Hospital Encounter Gastroenterology Benjy Tavera MD [facility] [place]STR[place], [place] [address] 12/15/2021 Surgery Gastroenterology Benjy Tavera COLONOSC Ben PULIDO MD DIAGNOSTIC [facility] [address] [place], [place] [address] Scheduled Procedures Name Priority Associated Diagnoses Date/Time COLONOSCOPY, DIAGNOSTIC 1 year colo 12/16/19 22 8:30 AM EST documented as of this encounter Procedures Procedure Name Priority Date/Time Associated Diagnosis Comme nts CT CHEST ABDOMEN STAT 11/10/2019 2:52 PM Adenocarcinoma of colon Results for this PELVIS W CONTRAST EDT procedure are in (GENERIC) the results section. documented in this encounter Results CT Chest Abdomen Pelvis w Contrast (Generic) (11/10/2019 2:52 PM EDT) Anatomical Region Laterality Modality Abdomen, Pelvis Computed Tomography Specimen (Source) Anatomical Location Collection Method / Collectio n Time Received Time / Laterality Volume Impressions 11/10/2019 3:48 PM EDT No focal lesions within the chest, abdomen and pelvis to suggest metastatic disease. No lymphadenopathy. Thank you for letting us participate in the care of this patient. For questions regarding this report, please contact e number below. ? Narrative 11/10/2019 3:48 PM EDT EXAMINATION: CT CHEST ABDOMEN PELVIS W CONTRAST (GENERIC) CLINICAL HISTORY: Gastrointestinal cance r, staging. TECHNIQUE: Helical CT of the chest, abdo men, and pelvis was performed following the intravenous administration of contra st. Administered 99.0 ml of OMNIPAQUE 350.00 mg/ml. Oral contrast was administ ered. COMPARISON: None FINDINGS: Chest: Lungs and large airways: Normal. Pleura: No effusion. Heart/vasculature: Normal. Lymph nodes: No enlarged lymph nodes. Mediastinum and lion: Normal. Abdomen/pelvis: Liver: Normal size and attenuation witho ut lesions. Bile ducts: Nondilated. Gallbladder: No calcified gallstones. No rmal caliber wall. Pancreas: Normal attenuation without omi marta dilatation. Spleen: Normal. Adrenals: Normal. Kidneys: Normal. Urinary Bladder: Normal. Vasculature: No aneurysm. Lymph Nodes: ??No enlarged lymph nodes. Bowel: Nondilated, no wall thickening. C ouple postbiopsy clips is identified in the sigmoid. Peritoneum and mesentery: No ascites, fr ee air, or loculated fluid collection. No mesenteric inflammation. Abdominal wall: Small fat-containing rig ht inguinal hernia. Reproductive organs: Unremarkable. Osseous structures: No suspicious lesion s. Procedure Note Den Crawford MD - 11/10/2019Format ting of this note might be different from the original. EXAMINATION: CT CHEST ABDOMEN PELVIS W C ONTRAST (GENERIC) CLINICAL HISTORY: Gastrointestinal cance r, staging. TECHNIQUE: Helical CT of the chest, abdo men, and pelvis was performed following the intravenous administration of contra st. Administered 99.0 ml of OMNIPAQUE 350.00 mg/ml. Oral contrast was administ ered. COMPARISON: None FINDINGS: Chest: Lungs and large airways: Normal. Pleura: No effusion. Heart/vasculature: Normal. Lymph nodes: No enlarged lymph nodes. Mediastinum and lion: Normal. Abdomen/pelvis: Liver: Normal size and attenuation witho ut lesions. Bile ducts: Nondilated. Gallbladder: No calcified gallstones. No rmal caliber wall. Pancreas: Normal attenuation without omi marta dilatation. Spleen: Normal. Adrenals: Normal. Kidneys: Normal. Urinary Bladder: Normal. Vasculature: No aneurysm. Lymph Nodes: No enlarged lymph nodes. Bowel: Nondilated, no wall thickening. C ouple postbiopsy clips is identified in the sigmoid. Peritoneum and mesentery: No ascites, fr ee air, or loculated fluid collection. No mesenteric inflammation. Abdominal wall: Small fat-containing rig ht inguinal hernia. Reproductive organs: Unremarkable. Osseous structures: No suspicious lesion s. IMPRESSION No focal lesions within the chest, abdom en and pelvis to suggest metastatic disease. No lymphadenopathy. Thank you for letting us participate in the care of this patient. For questions regarding this report, please contact e number below. Janine Smith MD IMG CT ORDERABLES documented in this encounter Visit Diagnoses Diagnosis Adenocarcinoma of colon Malignant neoplasm of colon, unspecified site documented in this encounter Administered Medications Inactive Administered Medications - up to 3 most recent administrations Medication Order MAR Action Action Date Dose Rate Site iohexoL (Omnipaque) 350 mg/mL Given 11/10/2019 2:52 PM EDT 99 mL s solution 0-200 mL 0-200 mL, Intravenous, ONCE PRN, 1 dose, Starting on 11/10/19 at 1452, Until 11/10/19 at 1452, Per Protocol, Warning Vesicant/Irritant Medication , Radiology Contrast, Routine iohexoL (Omnipaque) 350 mg/mL solution 0-50 Given 11/10/2019 2:52 PM EDT 50 mLs mL 0-50 mL, Oral, ONCE PRN, 1 dose, Starting on 11/10/19 at 1452, Until 11/10/19 at 1452, Per Protocol, Warning Vesicant/Irritant Medication , Radiology Contrast, Routine documented in this encounter Care Teams Build Automation Engineer Relationship Specialty Start Date End Date Deb Vallejo MD PCP - General Family Medicine 09/13/19 11/10/[address] [facility] [place] [address] documented as of this encounter
--- OUTSIDE RECORDS SUMMARY | 2021-12-08 13:31 | XMS_ITS | Encounter Summary ---
:1985 Author Organization [facility] [place] [address] Care Team Providers Name Role Phone Kelvin, Lily LANE Primary Care Provider Encounter Details Date Type Department Care Team Description 11/27/2019 Telephone General Surgery at [facility] Bryson Dominique MD [facility] [place] [address] [place] [address] [phone] (Wo rk) Social History Tobacco Use Types Packs/Day Years [...] this encounter Miscellaneous Notes Telephone Encounter - Bryson Dominique MD - 11/27/2019 3:57 PM EDT Spoke to Bryan regarding pathology results indicating no residual disease. Overall he is feeling well and has no acute complaints. All of his questions were answered to his satisfaction and I will see him next for follow-up. Bryson Dominique MD documented in this encounter Plan of Treatment Upcoming Encounters Date Type Specialty Care Team Description 12/15/2021 Hospital Encounter Gastroenterology Benjy Tavera MD [facility] [address] [place], [place] [address] 12/15/2021 Surgery Gastroenterology Benjy Tavera COLONOSC Ben PULIDO MD DIAGNOSTIC [facility] [address] [place], [place] [address] Scheduled Procedures Name Priority Associated Diagnoses Date/Time COLONOSCOPY, DIAGNOSTIC 1 year colo 12/16/19 22 8:30 AM EST documented as of this encounter Visit Diagnoses Not on filedocumented in this encounter Care Teams Radiation Control Specialist Relationship Specialty Start Date End Date Lily Warren APRN PCP - General Family Medicine 11/11/19 06/15/20 documented as of this encounter
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
--- OUTSIDE RECORDS SUMMARY | 2021-12-08 13:31 | XMS_ITS | Encounter Summary ---
:1985 [place] [address] Care Team Providers Name Role Phone Lily Warren APRN Primary Care Provider Encounter Details Date Type Department Care Team Description [facility]/12[facility]2019 [facility] [place] [address] Social History Tobacco Use Types Packs/Day [...] place to sleep or slept in a fdc (including now)? Sex Assigned at Date Recorded Not on file documented as of this encounter Plan of Treatment Upcoming Encounters Date Type Specialty Care Team Description 12/15/2021 Hospital Encounter Gastroenterology Benjy Tavera MD [facility] GASTROENTER[place]ERI [place], [place] [address] 12/15/2021 Surgery Gastroenterology Benjy Tavera COLONOSC Ben PULIDO MD DIAGNOSTIC [facility] [place], [place] [address] Scheduled Procedures Name Priority Associated Diagnoses Date/Time COLONOSCOPY, DIAGNOSTIC 1 year colo 12/16/19 22 8:30 AM EST documented as of this encounter Visit Diagnoses Not on filedocumented in this encounter Care Teams Hot Strip Finisher Relationship Specialty Start Date End Date Lily Warren APRN PCP - General Family Medicine 11/11/19 06/15/20 documented as of this encounter
--- OUTSIDE RECORDS SUMMARY | 2021-12-08 13:31 | XMS_ITS | Encounter Summary ---
:1985 Author Organization [facility] [place] [address] Care Team Providers Name Role Phone Deb Vallejo MD Primary Care Provider Encounter Details Date Type Department Care Team Description 10/01/2019 Telephone Gastroenterology at [facility] [place] [address] Social History Tobacco Use Types Packs/Day Years [...] this encounter Miscellaneous Notes Telephone Encounter - Priti Beck - 10/01/2019 3:17 PM EDT Bryan Marmolejo [id number] Diagnosis/Indication: [place] 1. Have you ever had a/an Colonoscopy before? No If yes, did you have any problems with the procedure? No What type of sedation was used: None 2. Do you take any Blood Thinners? No 3. Do you have a Pacemaker or Defibrillator device? No 4. Are you a diabetic? No 5. Do you have any Allergies to Eggs, Latex or Medications? Yes: Morphine 6. Do you take any Oral Iron Supplements (Including multi-vitamins)? No 7. Do you have a history of three or more abdominal surgeries? No 8. Have you had a problem with sedation or anesthesia? No 9. Do you have a c-pap machine or oxygen tank? Neither 10. Do you take prescription narcotic pain medications, including suboxone or methodone? No 11. Do you have a preference regarding the gender of your provider? No Preference 12. Is there any other information you would like to give us to aid in scheduling? No 13. Say to patient: You must have a responsible democrat who will drive you to your procedure, stay on campus for the entire duration of your procedure, and drive you home from your procedure? *Please Verify the height and weight, and adjust if height and/or weight have changed* Estimated body mass index is 26.74 kg/m?? as calculated from the following: Height as of 07/05/19: 180.1 cm (5' 10.91). Weight as of 07/05/19: 86.7 kg (191 lb 3.2 oz). Age:34 y.o. documented in this encounter Plan of Treatment Upcoming Encounters Date Type Specialty Care Team Description 12/15/2021 Hospital Encounter Gastroenterology Benjy Tavera MD [facility] [address] [place], [place] [address] 12/15/2021 Surgery Gastroenterology Benjy Tavera COLONOSC Ben PULIDO MD DIAGNOSTIC [facility] [address] [place], [place] [address] Scheduled Procedures Name Priority Associated Diagnoses Date/Time COLONOSCOPY, DIAGNOSTIC 1 year colo 12/16/19 22 8:30 AM EST documented as of this encounter Visit Diagnoses Not on filedocumented in this encounter Care Teams Peanut Farmer Relationship Specialty Start Date End Date Deb Vallejo MD PCP - General Family Medicine 09/13/19 11/10/[address] [facility] [address] [address] documented as of this encounter
--- OUTSIDE RECORDS SUMMARY | 2021-12-08 13:31 | XMS_ITS | Encounter Summary ---
:1985 Author Organization [facility] [place] [address] Care Team Providers Name Role Phone Deb Vallejo MD Primary Care Provider Encounter Details Date Type Department Care Team Description 10/28/2019 Hospital Encounter G[facility]enterology at [facility] Janine Smith, [facility] [place] [address] [facility] [phone] C[facility] [place] [place], [place] [address] Social History Tobacco Use Types [...] Sign Reading Time Taken Comments Blood Pressure 129/80 10/28/2019 4:10 PM EDT Pulse 50 10/28/2019 4:05 PM EDT Temperature 36.2 ??C (97.2 ??F) 10/28/2019 2:10 PM EDT Respiratory Rate 18 10/28/2019 4:10 PM EDT Oxygen Saturation 99% 10/28/2019 4:10 PM EDT Inhaled Oxygen Concentration - - Weight - - Height - - Body Mass Index - - documented in this encounter Medications at Time of Discharge Medication Sig Dispensed Refills Start Date End Date famotidine (Pepcid) 40 mg Take 1 tablet by 60 tablet 1 06/0712/02/2019 Tablet mouth daily. cyclobenzaprine (Flexeril) Take 1 tablet by 30 tablet 1 12/02/2019 10 mg Tablet mouth 3 times daily as needed for Muscle spasms. documented as of this encounter H&P Notes David Ignacio MD - 10/28/2019 2:27 PM EDT Gastroenterology and Hepatology Pre-Procedure History and Physical Exam Procedure: Colonoscopy: Indication: BRBPR, clots in stool Patient Active Problem List Diagnosis Code ??? Healthcare maintenance Z00.00 ??? Internal hemorrhoid K64.8 ??? Stomach ulcer K25.9 EXAM: HEENT: Airway examined, oropharynx clear Mallampati Score: I (soft palate, uvula, fauces, tonsillar pillars visible) LUNGS: Clear to auscultation HEART: Regular rate and rhythm, normal S1, S2 ABDOMEN: Normal bowel sounds, soft, non tender, non distended, A/P Proceed with the planned endoscopic procedure. ASA 1 - Normal health patient Sedation Plan: moderate (conscious sedation) Risks and benefits of the procedure explained to the patient. Consent signed. David Ignacio MD PGY-4, Gastroenterology documented in this encounter Miscellaneous Notes Op Note - Janine Smith MD - 10/28/2019 4:51 PM EDT [facility] Operative Note Patient Name: Bryan Marmolejo : [id number] MR#: [id number] Case Date: 10/28/2019 Surgeon: Surgeon(s) and Role: * Janine Smith MD - Primary * David Ignacio MD - Fellow Preoperative diagnosis: Gastrointestinal hemorrhage, unspecified gastrointestinal hemorrhage type Postoperative diagnosis: * No post-op diagnosis entered * Please see procedure note for complete details. Janine Smith MD 10/28/2019 documented in this encounter Plan of Treatment Upcoming Encounters Date Type Specialty Care Team Description 12/15/2021 Hospital Encounter Gastroenterology Benjy Tavera MD [facility] [address] [place], [place] [address] 12/15/2021 Surgery Gastroenterology Benjy Tavera COLONOSC Ben PULIDO MD DIAGNOSTIC [facility] [address] [place], [place] [address] Scheduled Procedures Name Priority Associated Diagnoses Date/Time COLONOSCOPY, DIAGNOSTIC 1 year colo 12/16/19 22 8:30 AM EST documented as of this encounter Procedures Procedure Name Priority Date/Time Associated Diagnosis Comme nts SPECIMEN TO Routine 10/28/2019 4:05 Results for this PATHOLOGY PM EDT procedure are i n the results section. SPECIMEN TO Routine 10/28/2019 4:05 Results for this PATHOLOGY PM EDT procedure are i n the results section. SPECIMEN TO Routine 10/28/2019 4:05 Results for this PATHOLOGY PM EDT procedure are i n the results section. SPECIMEN TO Routine 10/28/2019 4:05 Results for this PATHOLOGY PM EDT procedure are i n the results section. SURGICAL PATHOLOGY Routine 10/28/2019 3:04 Result s for this REPORT PM EDT procedure are i n the results section. COLONOSCOPY WITH 10/28/2019 2:46 Gastrointestinal DIRECTED SUBMUCOSAL PM EDT hemorrhage, unspecifi ed INJ (WRVU 3.66) gastrointestinal hemorrhage type COLONOSCOPY, 10/28/2019 2:46 Gastrointestinal POLYPECTOMY, PM EDT hemorrhage, unspecified REMOVAL LESION BY gastrointestinal SNARE (WRVU 4.67) hemorrhage type COLONOSCOPY Routine 10/28/2019 2:29 Results for this PM EDT procedure are i n the results section. documented in this encounter Results Specimen to Pathology (10/28/2019 4:05 PM EDT) Specimen Anatomical Collection Method Collection Time Receive d Time (Source) Location / / Volume Laterality AP Specimen 10/28/2019 4:05 PM 0 4:05 EDT PM EDT Narrative [place] - 10/28/2019 4:05 PM EDT Specimen requisition ordered. ??Separate Pathology report to follow Janine Smith MD PATHOLOGY/CYTOLOGY ORDERABLE S Performing Organization Address City/[facility] [place] [address] Specimen to Pathology (10/28/2019 4:05 PM EDT) Specimen Anatomical Collection Method Collection Time Receive d Time (Source) Location / / Volume Laterality AP Specimen 10/28/2019 4:05 PM 0 4:05 EDT PM EDT Narrative [place] - 10/28/2019 4:05 PM EDT Specimen requisition ordered. ??Separate Pathology report to follow Janine Smith MD PATHOLOGY/CYTOLOGY ORDERABLE S Performing Organization Address City/[facility] [place] [address] Specimen to Pathology (10/28/2019 4:05 PM EDT) Specimen Anatomical Collection Method Collection Time Receive d Time (Source) Location / / Volume Laterality AP Specimen 10/28/2019 4:05 PM 0 4:05 EDT PM EDT Narrative [facility] OR - 10/28/2019 4:05 PM EDT Specimen requisition ordered. ??Separate Pathology report to follow Janine Smith MD PATHOLOGY/CYTOLOGY ORDERABLE S Performing Organization Address City/State/ZIP [place] [address] Specimen to Pathology (10/28/2019 4:05 PM EDT) Specimen Anatomical Collection Method Collection Time Receive d Time (Source) Location / / Volume Laterality AP Specimen 10/28/2019 4:05 PM 0 4:05 EDT PM EDT Narrative [facility] - 10/28/2019 4:05 PM EDT Specimen requisition ordered. ??Separate Pathology report to follow Janine Smith MD PATHOLOGY/CYTOLOGY ORDERABLE S Performing Organization Address City/State/ZIP [place] [address] Surgical Pathology Report (10/28/2019 3:04 PM EDT) Component Value Ref Test Analysis Performed At [facility] Range Method Time Signature Surgical [id number] ? Location: 4T; EA10; A [facility] Report The signing pathologist has (i) examined the relevant preparation(s) for the [facility]ORIAL specimen(s) and (ii) rendered or confirmed the diagnosis(es) . HOSPITAL LABORATORY . ?Surgic al Pathology DIAGNOSIS A - Cecum, ??polypectomy: Tubular adenoma. Fragments of sessile serrated polyp/adenoma. B - Transverse colon, ?? polypectomy: Fragments of tubular adenoma. C - Descending colon, ?? polypectomy: Hyperplastic polyp. D - Sigmoid colon/rectum, ?? polypectomy: Fragments of invasive adenoc arcinoma, moderately differentiated, ? present at the cauterized margin. No lymphovascular invasion (see Discussion). Fragments of tubular adenoma. CR-PX Electronically signed by: ??Theo PLUNKETT PhD, Ila Verified: ??11/05/2019 ?Pathologist Performed at: ??-[facility] [place] Dept. of Pathology, [place], [place] DISCUSSION D - Immunohistochemistry for D2-40 and an elastin spec ial stain did not show lymphovascular invasion. ADDITIONAL STUDIES Immunohistochemistry Studies: These IHC studies provide [facility] pathologist with adjunctive diagnostic information. Antibody specificity has be en verified by testing antibodies on a series of in-house tissues with known immunohi stochemical performance characteristics. The clinical interpretation of any antib janet positive staining or its absence is evaluated within the context of clinical pre sentation, morphology, histopathological criteria and other diagnostic tests. Block ? Antibody ?Result (Positive /Negative) D2 ? D2-40 ?See Discussion D3 ? D2-40 ?See Discussion Block ? Antibody ? Result (Positive/Negative) D2 ? MLH1 ?Positive, intact nuclear s taining ? MSH2 ?Positive, intact nuclear staining ? MSH6 ?Positive, intact nuclear staining ? PMS2 ?Positive, intact nuclear staining Interpretation: Immunostains for MLH1, MSH2, MSH6 and PMS2 reveal intact nuclear staining in tumor cells. ??In a very small percentag e of tumors, there may still be an underlying hereditary defect in these DNA mismatc h repair genes despite intact nuclear expression of the protein in tumor cells ??. Genetic counseling and/or additional workup is indicated in patients with a family hist ory that meets current criteria for HNPCC screening. . ADDITIONAL STUDIES Immunohistochemical assay wa s performed on paraffin-embedded tissue sections fixed in 10% neutral buffered for clary for 6-72 hours using the polymer system technique with appropriate controls. The assay was performed according to the tool rental technician's instructions using anti-MLH -1 (ES05), anti-MSH-2 ([id number]), anti-MSH-6 (44), and anti-PMS-2 (MRQ-28) antibodies. Special stains are performed. ?? Block ? Stain ?Result ( Positive / Negative ) ??D2 ?EVG ? See Discussion ??D3 ?EVG ? See Discussion SPECIMEN(S) SUBMITTED A - cecum polyps x2, other (Multiple) B - transverse colon polyp, other (1) C - descending colon polyp, other (1) D - sigmoid colon/rectum polyps x2, other (Multiple) CLINICAL INFORMATION History of BRBPR part D. 3 cm sigmoid colon poly p, injected with epi prior to removal. Removed with cautery by piecemeal less than 5 mm r ectal polyp SPECIMEN PROCESSING A - Labeled/Fixative: Cecum polyps x2, formalin. Quantity/Size: Two, 0.6 and 0.7 cm. Tissue Description: Soft, pop-pink, polypoid tissues. Sections/Processing: Inked; larger trisected, smaller bisected Entirely, separately submitted in 2 cassettes labeled A1-A2. B - Labeled/Fixative: Transverse colon polyp, formalin. Quantity/Size: Three, averaging 0.3 cm. Tissue Description: Soft, pop-pink tissues. Sections/Processing: Submitted en toto ??in 1 cassette labeled B1. C - Labeled/Fixative: Descending colon polyp, formalin. Quantity/Size: Single, 1.2 x 0.3 x 0.1 cm. Tissue Description: Soft, pop-pink tissue. Sections/Processing: Inked and submitted in toto in 1 cassette labeled C1. D - Labeled/Fixative: Sigmoid colon/rectum polyps x2, formal in. Quantity/Size: Multiple, ran ging from 0.2 x 0.2 x 0.1 cm to 2.9 x 1.6 x 1.6 cm. Tissue Description: Soft, irregular and polypoid tissues. Sections/Processing: Entirely submitted in 12 cassettes as follows: ?D1-D9: ??Largest tissu e, inked and serially sectioned (presumptive resection margin ? in blocks D1-D4) ?D10: ??Single tissue, trisected ?D11: ??Single tissue, inked and bisected ?D12: ??Multiple intact tissues ??ajw Specimen (Source) Anatomical Collection Method Collection Time Re ceived Time Location / / Volume Laterality 10/28/2019 3:04 PM EDT Janine Smith MD PATHOLOGY/CYTOLOGY ORDERABLE S Performing Organization Address City/State/ZIP [place] [address] COLONOSCOPY (10/28/2019 2:29 PM EDT) [facility] gist Method Time Signature COLONOSCOPY [facility] Endoscopy Procedure Date: 10/28/2019 2:29 PM ? Patient Name: Bryan Marmolejo ? Date of : 1985 ? Age: 34 ? Order #: [id number] ? Instrument Name: [id number] ? Procedure: ? Colonoscopy Indications: ? Rectal bleeding Providers: ? Janine Smith, Sonali Roblero , ? Benjy Mejia, David Verde MD: ?Deb Turpin Sayess Medicines: ? Fentanyl 250 micrograms IV, Midazo howe ? 5 mg IV Complications: ? No immediate complications. Procedure: ? Pre-Anesthesia Assessment: ? - [place] Protocol: ? - Pre-procedure Verification: Prior ? to the procedure, the patient 's ? identity was verified by full name, ? date of and medical rec ord ? number. The patient's identit y was ? verified on all pertinent med ical ? records, including History an d ? Physical, nursing assessment and ? pre-anesthesia assessment. Al so prior ? to the procedure, a History a nd ? Physical was performed, and p atient ? medications, allergies and ? sensitivities were reviewed. The ? patient's tolerance of previo us ? anesthesia was reviewed. The risks ? and benefits of the procedure and the ? sedation options and risks we re ? discussed with the patient. A ll ? questions were answered and i nformed ? consent was obtained. ? - Marking: The endoscopic pro cedure ? was visually marked on a anthony ent ? wrist band delineating the pa tient ? name, proposed procedure and ? endoscopist's initials. ? - Time-Out: Prior to the star t of the ? procedure, the patient's ? identification, proposed proc edure, ? accurate signed consent, chester ectly ? labeled images and records, a nd need ? for prophylactic antibiotics were ? verified by the physician, robert merino nurse, ? the fixture maker and the techn ician in ? the procedure room. ? The procedure, indications, b enefits, ? [...] rectal exam was perfo rmed. ? The Colonoscope was inserted in the ? anus and under direct visuali zation, ? advanced to the terminal ileu m. ? Careful inspection was made a s the ? colonoscope was withdrawn. Th e ? colonoscopy was performed wit cruz ? difficulty. The patient sissy ated the ? procedure well. The quality o f the ? bowel preparation was good. ? Findings: ? The perianal and digital rectal examinations were ? normal. ? The terminal ileum appeared normal. ? Two polyps were found in the cecum. The polyps were ? less than 5 mm in size. These polyps were removed ? with a cold snare. Resection and retrieval were ? complete. ? A less than 5 mm polyp was found in the transverse ? colon. The polyp was removed with a cold snare. ? Resection and retrieval were complete. ? A less than 5 mm polyp was found in the descending ? colon. The polyp was removed with a cold snare. ? Resection and retrieval were complete. ? A less than 5 mm polyp was found in the rectum. The ? polyp was removed with a cold snare. Resection and ? retrieval were complete. For hemostasis, one ? hemostatic clip was successfully placed. There was no ? bleeding at the end of the procedure. ? A 30 mm polyp was found in the sigmoid colon. The ? polyp was pedunculated. Area was successfully ? injected with 2 mL of a 1:10,000 solution of ? epinephrine for hemostasis. The polyp was removed ? with a hot snare in two pieces. Resection and ? retrieval were complete. To prevent bleeding ? post-intervention, four hemostatic clips were ? successfully placed. There was no bleeding at the end ? of the procedure. ? Moderate Sedation: ? I was present during the intraservice time as ? documented by the sedation RN. Impression: ?- The examined portion of the ileu m ? was normal. ? - Two less than 5 mm polyps i n the ? cecum, removed with a cold sn are. ? Resected and retrieved. ? - One less than 5 mm polyp in the ? transverse colon, removed wit h a cold ? snare. Resected and retrieved . ? - One less than 5 mm polyp in the ? descending colon, removed wit h a cold ? snare. Resected and retrieved . ? - One less than 5 mm polyp in the ? rectum, removed with a cold s nare. ? Resected and retrieved. Clip was ? placed. ? - One 30 mm polyp in the sigm oid ? colon, removed with a hot sna re. ? Resected and retrieved. Injec iban. ? Clips were placed. Recommendation: ?- Await pathology results, pending ? path results will plan for re peat ? flex sig in 6 months. ? - No NSAIDs for 7 days. ? Procedure Code(s): ?? --- Professional --- ? 06802, Colonoscopy, flexible; with ? removal of tumor(s), polyp(s) , or ? other lesion(s) by snare tech nique Diagnosis Code(s): ?? --- Professional --- ? K63.5, Polyp of colon ? K62.5, Hemorrhage of anus and rectum ? K62.1, Rectal polyp ? --- Technical --- ? K63.5, Polyp of colon ? K62.5, Hemorrhage of anus and rectum ? K62.1, Rectal polyp CPT copyright 2019 [employer]. All rights reserved. The codes documented in this report are preliminary and upon exhibit builder review may be revised to meet current compliance requirements. Attending Participation: ? I personally performed the entire procedure. ? Janine Smith, 10/28/2019 4:18:15 PM Number of Addenda: 0 Note Initiated On: 10/28/2019 2:29 PM Specimen (Source) Anatomical Collection Method Collection Time Re ceived Time Location / / Volume Laterality 10/28/2019 2:29 PM EDT Deb Vallejo MD GENERAL SURGICAL ORDERABLES Performing Organization Address City/State/ZIP Code Phon e Number [employer] documented in this encounter Visit Diagnoses Not on filedocumented in this encounter Administered Medications Inactive Administered Medications - up to 3 most recent administrations Medication Order MAR Action Action Date Dose Rate Site lactated ringers infusion New Bag 10/28/2019 2:20 PM EDT 100 mL/hr 100 mL/hr 100 mL/hr, Intravenous, CONTINUOUS, Starting on 10/28/19 at 1430, Until 10/28/19 at 1647, Endoscopy (Day of Procedure) documented in this encounter Active and Recently Administered Medications Times are shown in EDT. Continuous Medication Order 10/26/2019 10/27/2019 10/28/2019 lactated ringers infusion (CANCELED) 1420 (New Bag - Provider: Leroy Hogan RN) 100 mL/hr, at 100 mL/hr, Intravenous, CO NTINUOUS, Starting 10/28/19 at 1430, Until Mon10/28/19 at 1647, Endo (Day of Procedure) PRN Medication Order 10/26/2019 10/27/2019 10/28/2019 EPINEPHrine injection solution (CANCELED) 1540 (Given - Provider: Sonali Roblero RN - Comment: [id number]) ONCE PRN, Starting 10/28/19 at 1540, Until 10/28/19 at 1852, Intra- Operative (Intra-Procedure), Routine fentaNYL 50 mcg/mL multi-dose injection (CANCELED) 1447 (Given - Provider: Sonali Roblero RN)1450 (Given - Provider: Sonali Roblero RN)1453 (Given - Provider: Sonali Roblero RN)1457 (Given - Provider: Sonali Roblero RN)1502 (Given - Provider: Sonali Roblero RN) ONCE PRN, Starting Mon10/28/19 at 1447, Until Mon10/28/19 at 1852, Intra- Operative (Intra-Procedure), Routine 150 7 (Given - Provider: Sonali Roblero RN) midazolam (PF) (VERSED) multi-dose injection (CANCELED) 1447 (Given - Provider: Sonali Roblero RN)1450 (Given - Provider: Sonali Roblero RN)1453 (Given - Provider: Sonali Roblero RN)1457 (Given - Provider: Sonali Roblero RN)1502 (Given - Provider: Sonali Roblero RN) ONCE PRN, Starting 10/28/19 at 1447, Until Mon10/28/19 at 1852, Intra- Operative (Intra-Procedure), Routine 150 6 (Given - Provider: Sonali Roblero RN) documented in this encounter Care Teams Creative Developer Relationship Specialty Start Date End Date Deb Vallejo MD PCP - General Family Medicine 09/13/19 11/10/[address] [facility] [address] [place] [address] documented as of this encounter
--- OUTSIDE RECORDS SUMMARY | 2021-12-08 13:31 | XMS_ITS | Encounter Summary ---
:1985 [place] [address] Care Team Providers Name Role Phone Kelvin Lily SHERMAN Primary Care Provider Encounter Details Date Type Department Care Team Description 11/11/2019 Laboratory Lab 3L [facility] Adenocarcinoma [place] [id number] Social History Tobacco Use Types Packs/Day Years [...] place to sleep or slept in a half-way (including now)? Sex Assigned at Date Recorded Not on file documented as of this encounter Plan of Treatment Upcoming Encounters Date Type Specialty Care Team Description 12/15/2021 Hospital Encounter Gastroenterology Benjy Tavera MD [facility] [place], [place] [address] 12/15/2021 Surgery Gastroenterology Benjy Tavera COLONOSC Ben PULIDO MD DIAGNOSTIC [facility] [place], [place] [address] Scheduled Procedures Name Priority Associated Diagnoses Date/Time COLONOSCOPY, DIAGNOSTIC 1 year colo 12/16/19 22 8:30 AM EST documented as of this encounter Procedures Procedure Name Priority Date/Time Associated Diagnosis Comme nts HC Routine 11/11/2019 7:48 AM Adenocarcinoma of colo n Results for this CARCINO-EMBRYONIC EDT procedure are in AG ASSAY the results section. documented in this encounter Results CEA (11/11/2019 7:48 AM EDT) athologist Signature CEA 1.2 <=3.8 ng/mL [facility] Comment: Reference range: ??(20-69 years): Non-smoker: ??less than or equal to 3.8 ng/mL Smoker: ??less than 5.5 ng/ml Specimen Anatomical Collection Method Collection Time Receive d Time (Source) Location / / Volume Laterality Blood specimen 11/11/2019 7:48 AM 10/05/2 020 7:52 (specimen) EDT AM EDT Resulting Agency Comment Spec In Lab Janine Smith MD CHEMISTRY ORDERABLES Performing Organization Address City/State/ZIP Code Phon e Number [place] [phone] documented in this encounter Visit Diagnoses Diagnosis Adenocarcinoma of colon Malignant neoplasm of colon, unspecified site documented in this encounter Care Teams Disciplinary Hearing Officer Relationship Specialty Start Date End Date Lily Warren APRN PCP - General Family Medicine 11/11/19 06/15/20 documented as of this encounter
--- OUTSIDE RECORDS SUMMARY | 2021-12-08 13:31 | XMS_ITS | Encounter Summary ---
:1985 Author Organization [facility] [place] [address] Care Team Providers Name Role Phone Lily Warren APRN Primary Care Provider Encounter Details Date Type Department Care Team Description 01/27/2020 Hospital Encounter Hematology and Aden[place] rcinoma of colon; [place] at [facility] [place] [address] Social History Tobacco Use Types Packs/Day Years [...] Hospital Encounter Gastroenterology Benjy Tavera MD [facility] [place], [place] [address] 12/15/2021 Surgery Gastroenterology Benjy Tavera COLONOSC Ben PULIDO MD DIAGNOSTIC [facility] [place], [place] [address] Scheduled Procedures Name Priority Associated Diagnoses Date/Time COLONOSCOPY, DIAGNOSTIC 1 year colo 12/16/19 22 8:30 AM EST documented as of this encounter Procedures Procedure Name Priority Date/Time Associated Diagnosis Comme nts RESEARCH Routine 01/27/2020 9:59 Adenocarcinoma of Results for this VENIPUNCTURE AM EST colon procedure are in Family history of the result s kidney cancer section. documented in this encounter Results Research Venipuncture (01/27/2020 9:59 AM EST) Analysis Performed At [facility] Time Signature Research [facility] Specimen Anatomical Collection Method Collection Time Receive d Time (Source) Location / / Volume Laterality Blood specimen 01/27/2020 9:59 AM 020 (specimen) EST 10:06 AM EST Resulting Agency Comment Spec In Lab Sotero Luna MD CHEMISTRY ORDERABLES Performing Organization Address City/State/[place] [address] documented in this encounter Visit Diagnoses Diagnosis Adenocarcinoma of colon Malignant neoplasm of colon, unspecified site Family history of kidney cancer Family history of malignant neoplasm of kidney documented in this encounter Additional Health Concerns Infection Onset Date Last Indicated Resolved Time C. difficile 12/02/2019 12/02/2019 03/01/2020 8:09 PM EST documented as of this encounter Care Teams Oxidation Engineer Relationship Specialty Start Date End Date Lily Warren APRN PCP - General Family Medicine 11/11/19 06/15/20 documented as of this encounter
--- OUTSIDE RECORDS SUMMARY | 2021-12-08 13:31 | XMS_ITS | Encounter Summary ---
:1985 Author Organization [place] [address] Care Team Providers Name Role Phone Deb Vallejo MD Primary Care Provider Reason for Referral Consultation (Urgent) - Closed Specialty Diagnoses / Procedures Referred By Contact Refer red To Contact General Surgery Diagnoses Adenocarcinoma of colon Janine Smith MD [facility] [place] Gen Surgery 4l [facility] [place] [address] [place] [address] Fax: Referral ID Status Reason Start Date Expiration Date Visits V isits Requested Authorized [id number] Closed Consult, 11/06/2019 11/05/2020 1 1 Test & Treat Encounter Details Date Type Department Care Team Description 11/06/2019 Orders Only [place]ology [place] [facility] [place] Smith, Adenocarcinoma of [facility] [place] [address] [facility] [phone] [place] [address] Social History Tobacco Use Types Packs/Day Years [...] 12/15/2021 Hospital Encounter Gastroenterology Benjy Tavera MD [facility] [address] [place], [place] [address] 12/15/2021 Surgery Gastroenterology Benjy Tavera W, MD DIAGNOSTIC [facility] [address] [place], [place] [address] Scheduled Procedures Name Priority Associated Diagnoses Date/Time COLONOSCOPY, DIAGNOSTIC 1 year colo 12/16/19 22 8:30 AM EST Scheduled Referrals Name Type Priority Associated Diagnoses Order S chedule Referral to Outpatient Referral Routine Adenocarcinoma of col on Ordered: General Surgery 11/06/2019 documented as of this encounter Results CEA (11/11/2019 7:48 AM EDT) P athologist Signature CEA 1.2 <=3.8 ng/mL [facility] Comment: Reference range: ??(20-69 years): Non-smoker: ??less than or equal to 3.8 ng/mL Smoker: ??less than 5.5 ng/ml Specimen Anatomical Collection Method Collection Time Receive d Time (Source) Location / / Volume Laterality Blood specimen 11/11/2019 7:48 AM 020 7:52 (specimen) EDT AM EDT Resulting Agency Comment Spec In Lab Janine Smith MD CHEMISTRY ORDERABLES Performing Organization Address City/State/ZIP Code Phon e Number [place] [phone] documented in this encounter Visit Diagnoses Diagnosis Adenocarcinoma of colon Malignant neoplasm of colon, unspecified site documented in this encounter Care Teams Bonsai Culturist Relationship Specialty Start Date End Date Deb Vallejo MD PCP - General Family Medicine 09/13/19 11/10/[address] [facility] [address] [place] [address] documented as of this encounter
--- OUTSIDE RECORDS SUMMARY | 2021-12-08 13:31 | XMS_ITS | Encounter Summary ---
:1985 Author Organization [facility] [place] [address] Care Team Providers Name Role Phone Kelvin Lily LANE Primary Care Provider Encounter Details Date Type Department Care Team Description 01/24/2020 Notes Only Hematology and Oncology at Sotero Rogers MD [facility] Carlos lozoya HEMATOLOGY/[place] [address] [place] [address] [phone] (Wo rk) Social History Tobacco Use Types [...] place to sleep or slept in a correction (including now)? Sex Assigned at Date Recorded Not on file documented as of this encounter Progress Notes Sotero Luna MD - 01/24/2020 3:14 PM EST I have reviewed the patient's record and given personal and/or family history of cancer he should beseen by genetic counselor. This is scheduled for next week. documented in this encounter Plan of Treatment Upcoming Encounters Date Type Specialty Care Team Description 12/15/2021 Hospital Encounter Gastroenterology Benjy Tavera MD [facility] [address] [place], [place] [address] 12/15/2021 Surgery Gastroenterology Benjy Tavera COLONOSC Ben PULIDO MD DIAGNOSTIC [facility] [address] [place], [place] [address] Scheduled Procedures Name Priority Associated Diagnoses Date/Time COLONOSCOPY, DIAGNOSTIC 1 year colo 12/16/19 8:30 AM EST documented as of this encounter Visit Diagnoses Not on filedocumented in this encounter Additional Health Concerns Infection Onset Date Last Indicated Resolved Time C. difficile 12/02/2019 12/02/2019 03/01/2020 8:09 PM EST documented as of this encounter Care Teams Recruiting And Selection Consultant Relationship Specialty Start Date End Date Lily Warren APRN PCP - General Family Medicine 11/11/19 06/15/20 documented as of this encounter
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
--- OUTSIDE RECORDS SUMMARY | 2021-12-08 13:31 | XMS_ITS | Encounter Summary ---
:1985 Author Organization [facility] [place] [address] Care Team Providers Name Role Phone Deb Vallejo MD Primary Care Provider Encounter Details Date Type Department Care Team Description 11/17/2020 Telephone Gastroenterology at [facility] [place] [address] Social History Tobacco Use Types Packs/Day [...] this encounter Miscellaneous Notes Telephone Encounter - Mariya Stovall Altagracia - 11/17/2020 3:32 PM EDT Bryan Marmolejo [id number] Diagnosis/Indication: COLONOSCOPY- 1 YR SURVEILLANCE S/P RESECTION COLON CA 1. Have you ever had a/an Colonoscopy before? Yes: Date 10/08/2019 If yes, did you have any problems [...] Allergies to Eggs, Latex or Medications? Yes: E-DH 6. Do you take any Oral Iron Supplements (Including multi-vitamins)? No 7. Do you have a history of three or more abdominal surgeries? No 8. Have you had a problem with sedation or anesthesia? No 9. Do you use a c-pap machine or oxygen tank? Neither 10. Do you take prescription narcotic pain medications, including suboxone or methodone? No 11. Do you have a preference regarding the gender of your provider? No Preference 12. Is there any other information you would like to us to note for the provider and nursing team who will perform your case? No 13. Say to patient: You must have a responsible constitution party who will drive you to your procedure, stay on campus for the entire duration of your procedure, and drive you home from your procedure? *Please Verify the height and weight, and adjust if height and/or weight have changed* Estimated body mass index is 26.36 kg/m?? as calculated from the following: Height as of 11/14/19: 181 cm (5' 11.26). Weight as of 12/16/19: 86.4 kg (190 lb 6.4 oz). *Delete if not needed* Height: 6' Weight: 197 BMI: 26.7 Age:35 y.o. 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
--- OUTSIDE RECORDS SUMMARY | 2021-12-08 13:31 | XMS_ITS | Encounter Summary ---
:1985 Author Organization [facility] [place] [address] Care Team Providers Name Role Phone Kelvin, Lily LANE Primary Care Provider Encounter Details Date Type Department Care Team Description 12/01/2019 Telephone General Surgery at [facility] Kashif Handley MD [facility] [place] [address] [place] [address] GENERAL SURGERY [phone] [place], [place] [address] (Wo rk) Social History Tobacco Use Types [...] this encounter Miscellaneous Notes Telephone Encounter - Kashif Handley MD - 12/01/2019 6:43 PM EDT I called the patient at 6:43 PM. [...] Marmolejo and his agree with this plan. This note will be routed to the provider mentioned above. Kashif Handley MD documented in this encounter Plan of Treatment Upcoming Encounters Date Type Specialty Care Team Description 12/15/2021 Hospital Encounter Gastroenterology Benjy Tavera MD [facility] [place], [place] [address] 12/15/2021 Surgery Gastroenterology Benjy Tavera COLONOSC Ben PULIDO MD DIAGNOSTIC [facility] [address], [place] [address] Scheduled Procedures Name Priority Associated Diagnoses Date/Time COLONOSCOPY, DIAGNOSTIC 1 year colo 12/16/19 22 8:30 AM EST documented as of this encounter Visit Diagnoses Not on filedocumented in this encounter Care Teams Dispatcher [place] Relationship Specialty Start Date End Date Lily Warren APRN PCP - General Family Medicine 11/11/19 06/15/20 documented as of this encounter
--- OUTSIDE RECORDS SUMMARY | 2021-12-08 13:31 | XMS_ITS | Encounter Summary ---
:1985 [place] [address] Care Team Providers Name Role Phone Lily Warren APRN Primary Care Provider Encounter Details Date Type Department Care Team Description 11/11/2019 Public [facility] Public [facility] Named [facility] COVID-[place] [phone] Social History Tobacco Use Types Packs/Day [...] place to sleep or slept in a fpc (including now)? Sex Assigned at Date Recorded Not on file documented as of this encounter Plan of Treatment Upcoming Encounters Date Type Specialty Care Team Description 12/15/2021 Hospital Encounter Gastroenterology Benjy Tavera MD [facility] [place], [place] [address] 12/15/2021 Surgery Gastroenterology Benjy Tavera COLONOSC Ben PULIDO MD DIAGNOSTIC [facility] [place], [place] [address] Scheduled Procedures Name Priority Associated Diagnoses Date/Time COLONOSCOPY, DIAGNOSTIC 1 year colo 12/16/19 22 8:30 AM EST documented as of this encounter Procedures Procedure Name Priority Date/Time Associated Diagnosis Comme nts COVID-19 PCR STAT 11/11/2019 12:37 PM COVID-19 ruled out Re sults for this EDT procedure are i n the results section . documented in this encounter Results COVID-19 PCR (11/11/2019 12:37 PM EDT) [facility] Method Time Signature SARS-CoV-2 Not Detected Not Detected [facility] Comment: This result should be interpreted in com bination with the clinical observations, patient history and epidem iological information in making a final diagnosis. For testing of asymptomatic i ndividuals, assay performance characteristics and clinical utility hav e not been evaluated. Testing for SARS-CoV-2 (Severe acute respiratory syn drome coronavirus 2, formerly known as 2019 novel coronavirus or 2019-nCoV) to aid in the diagnosis of COVID-19 is performed using the [employer] RealTime SARS -CoV-2 Assay as authorized by the FDA Emergency Use Authorization (EUA). This EUA assay is intended for In-vitro Diagnostic (IVD) use with respiratory sp ecimens such as nasopharyngeal swabs collected from individuals during the ac s[place] tribe phase of infection. This assay is performed based on the instructions for use provided by [facility] and additional guidance provided by CDC and FDA. Testing is performed in the [facility] within the Department of Pathology and Laboratory Medicine at [facility], certified under the Clinical Laboratory Improvement Amendments of 1988 (CLIA), 42 U.S.C. 263a, to perform high complexi ty tests. Assay performance has been verified according to clinical laborator y regulatory requirements for use with specimens collected from individuals glen pected of COVID-19. Test results are provided above. A result of ? Not Detected? indicates that the viral RNA target is not present above the limit of detect ion, but does not preclude SARS-CoV-2 infection. False negative results may oc cur if a specimen is improperly collected, transported or handled; if am plification inhibitors are present; or if inadequate numbers of viral particles are present in the specimen. When a diagnostic test is negative, the possibi lity of a false negative result should be considered in the context of a patien t? s recent exposures and the presence of clinical signs and symptoms consisten t with COVID-19. A result of ? Detected? indicates that RNA from SARS-CoV-2 was d etected and the patient is infected. As required or requested by public health a uthorities, positive specimens may be sent for additional testing. Positive an d negative predictive values for this test are highly dependent on disease pre valence. A result of ? Invalid? indicates that neither the viral RNA tar gets nor the internal control target was detected. An invalid result suggests the presence of inhibitors. Recollection and re-testing is recommend ed in the case of an invalid result. CDC COVID-19 criteria for testing on hum an specimens and clinical management guidance information are available at th e CDC Coronavirus Disease 2019 (COVID-19) webpage under ? Information for Healthcare Professionals? (https://www.cdc.gov/coronavirus/2019-nc ov/hcp/index.html) Additional information about this and ot her EUA tests can be found in provider and patient fact sheets at the following FDA website: https://www.fda.gov/medical-devices/zkjnniwwxyt-owlnnap-1121-uywqk-90-nxgqfxnax- soo-vfquzgmwtofjfj-npcvqlv-devices/oaeor-wijsgulhqud-wsvl SARS-Cov-2 RNA Source [employer] Swab [facility] Specimen (Source) Anatomical Collection Method Collection Time Re ceived Time Location / / Volume Laterality Nasopharyngeal swab 11/11/2019 12:37 10/0 06/2019 (specimen) PM EDT 12:37 PM EDT Comment: Symptoms->Asymptomatic Resulting Agency Comment Spec In Lab Bryson Dominique MD MICROBIOLOGY - GENERAL ORDER ALTAGRACIA Performing Organization Address City/State/[place] [address] documented in this encounter Visit Diagnoses Diagnosis COVID-19 ruled out documented in this encounter Care Teams Torch Shearer Relationship Specialty Start Date End Date Lily Warren APRN PCP - General Family Medicine 11/11/19 06/15/20 documented as of this encounter
--- OUTSIDE RECORDS SUMMARY | 2021-12-08 13:31 | XMS_ITS | Encounter Summary ---
:1985 Author Organization [facility] Address [address] [place] [address] Care Team Providers Name Role Phone Kelvin [...] Expiration Date Visits Requ ested Visits Authorized [id number] 1 1 Encounter Details Date Type Department Care Team Description 11/12/2019 - Hospital Encounter 4 [facility] Maxine Damico, 11/15/[address] [facility] [address], [place], [place] [id number] [phone] Social History Tobacco Use Types Packs/Day Years [...] place to sleep or slept in a [facility] (including now)? Sex Assigned at Date Recorded Not on file documented as of this encounter Last Filed Vital Signs Vital Sign Reading Time Taken Comments Blood Pressure 110/71 11/15/2019 7:25 AM EDT Pulse 63 11/14/2019 4:26 PM EDT Temperature 36.8 ??C (98.2 ??F) 11/15/2019 7:25 AM EDT Respiratory Rate 18 11/15/2019 7:25 AM EDT Oxygen Saturation 96% 11/15/2019 9:51 AM EDT Inhaled Oxygen Concentration - - Weight 85.7 kg (188 lb 15 oz) 11/15/2019 7:48 AM EDT Height 181 cm (5' 11.26) 11/14/2019 4:48 AM EDT Body Mass Index 26.16 11/14/2019 4:48 AM EDT documented in this encounter Discharge Summaries Padmaja Pierce MD - 11/15/2019 10:38 AM EDT Images from the original note were not included. Colorectal Surgery - Inpatient - Discharge Summary Patient Name: Bryan Marmolejo Patient Age: 34 y.o. Birthdate: 1985 Admit date: 11/12/2019 Discharge date and time: 11/15/19 Attending Physician: ADAM DOMINIQUE Primary Diagnosis: Adenocarcinoma of the colon Discharge Diagnoses (Hospital Problems): Active Hospital Problems Diagnosis ??? Colon cancer Resolved Hospital Problems No resolved problems to display. Secondary Diagnoses (Chronic Problems): Active Non-Hospital Problems Diagnosis ??? Healthcare maintenance ??? Adenocarcinoma of colon On colonoscopy. Sigmoid/rectal. Prior history of blood in stool. ??? Stomach ulcer with hemetemesis ??? Internal hemorrhoid Noted on anoscopy Operations/Major Procedures: 11/12/2019 Surgeon(s) and Role: Panel 1: * Adam Dominique MD - Primary Panel 2: * Benjy Reagan MD - Primary Procedure(s): @ROBOTIC,LAPAROSCOPY,SURGICAL,ENTERECTOMY,RESECTION OF SMALL INTESTINE,SINGLE RESECTION AND ANASTOMOSIS SIGMOIDOSCOPY, FLEXIBLE W/WO SPECIMEN BY BRUSHING OR WASHING (WRVU 0.84) MODIFIER ROBOT,DAVINCI XI CYSTO, STENT PLACEMENT INTRAOP, TEMPORARY (WRVU 2.82) Procedure(s): @ROBOTIC,LAPAROSCOPY,SURGICAL,ENTERECTOMY,RESECTION OF SMALL INTESTINE,SINGLE RESECTION AND ANASTOMOSIS SIGMOIDOSCOPY, FLEXIBLE W/WO SPECIMEN BY BRUSHING OR WASHING (WRVU 0.84) MODIFIER ROBOT,DAVINCI XI CYSTO, STENT PLACEMENT INTRAOP, TEMPORARY (WRVU 2.82) IV INJECTION, AGENT TO TEST VASC FLOW IN FLAP OR GRAFT, ENT (WRVU 1.95) HPI: Bryan Marmolejo is a 34 y.o. male, [...] He underwent a CT chest abdomen pelvis (11/10/2019) demonstrating no evidence of lymphadenopathy or distant metastatic disease. Discussed minimally invasive sigmoid resection and potential for no residual disease on final pathology, however counseled evaluation of potential lymph node involvement is unknown without resection, and the risk is approximately 25%for LN involvement in this scenario. CEA is in the normal range at 1.2. Hospital Course: Bryan Marmolejo was taken to the operating room where the above procedures were performed. He tolerated the operation well and without complication. He was admitted post-operatively for clinical monitoring and further management. The patient's hospital course was uncomplicated and hewas deemed stable for discharge on 11/15/19 . Colon & Rectal Surgery Evidence-based* Discharge Criteria At a minimum all criteria must be met prior to discharged (every line should have a check-bruce): [x] adequate oral intake [x] adequate urine output [x] ambulating independently >4X day in hallway [x] effective peristalsis: consistently passing flatus and/or stool [x] no evidence of complications; educated about signs and symptoms of complications [x] pain controlled with oral meds, preferably non-narcotic; patients to be discharged with prescription more than Tylenol/Ibuprofen (i.e. Tramadol or Oxycodone) [x] Tylenol alternating every six hours [] ex. Tylenol 12pm, Ibuprofen 3pm, Tylenol 6pm, Ibuprofen 9pm [] Tramadol or Oxycodone for breatkhrough [x] follow-up appointment already scheduled with Ana Lee, or Otis in 5 weeks -call Lacie Mercado [phone] for scheduling assistance -call the General Surgery Clinic nurses [phone] for prior authorizations assistance Only if applicable (check either NA or at end after scheduled): [x] NA visiting nurse arrangements in place [] [x] NA ostomy nursing appt. POD# 12-14 [] [x] NA subQ drain(s) stay in until < 30 cc / 24 hours each x 3 days in a row [] [x] NA mónica out POD #12-14 (General Surgery nurses clinic for drain/staple removal) [] [x] This form has been reviewed with the patient *Ti KAUFMAN Jr, et al. Criteria to determine readiness for hospital discharge following colorectal surgery: an international consensus using the [place] technique. Dis Colon Rectum. 2012 May;55(4):416-23. Vital Signs Last value Range last 24hrs Temperature Temp: 36.8 ??C (98.2 ??F) Temp: [36.6 ??C (97.9 ??F)-36.9 ??C (98.4 ??F)] Heart Rate Heart Rate: 63 Heart Rate: [63] Blood Pressure BP: 110/71 BP: (107-123)/(61-71) Respiratory Rate Resp: 18 Resp: [16-18] SpO2 SpO2: 96 % SpO2: [95 %-97 %] Pertinent Lab Data: Recent Labs 11/13/19 0357 11/12/19 1804 HGB 14.5 14.8 HCT 41.2 42.5 Recent Labs 11/13/19 0357 11/12/19 1804 CREATININE 0.97 1.23 No results for input(s): CRP in the last 72 hours. Physical Exam: Body mass index is 26.16 kg/m??. General: NAD, resting comfortably, pleasant, conversant HEENT: PERRL, anicteric sclerae CVS: RRR Pulm: CTAB Abd: soft, nontender, non-distended : no lozada Skin: warm, dry Ext: no c/c/e, cap refill <2sec Neuro: CN 2-12 grossly intact, nonfocal,moving all four extremities spontaneously Imaging: Ct Chest Abdomen Pelvis W Contrast (generic) Result Date: 11/10/2019 EXAMINATION: CT CHEST ABDOMEN PELVIS W CONTRAST (GENERIC) CLINICAL HISTORY: Gastrointestinal cancer,staging. TECHNIQUE: Helical CT of the chest, abdomen, and pelvis was performed following the intravenous administration of contrast. Administered 99.0 ml of OMNIPAQUE 350.00 mg/ml. Oral contrast was administered. COMPARISON: None FINDINGS: Chest: Lungs and large airways: Normal. Pleura: No effusion. Heart/vasculature: Normal. Lymph nodes: No enlarged lymph nodes. Mediastinum and lion: Normal. Abdomen/pelvis: Liver: Normal size and attenuation without lesions. Bile ducts: Nondilated. Gallbladder: No calcified gallstones. Normal caliber wall. Pancreas: Normal attenuation without ductal dilatation. Spl een: Normal. Adrenals: Normal. Kidneys: Normal. Urinary Bladder: Normal. Vasculature: No aneurysm. Lymph Nodes: No enlarged lymph nodes. Bowel: Nondilated, no wall thickening. Couple postbiopsy clips is identified in the sigmoid. Peritoneum and mesentery: No ascites, free air, or loculated fluid collection. No mesenteric inflammation. Abdominal wall: Small fat-containing right inguinal hernia. Reproductive organs: Unremarkable. Osseous structures: No suspicious lesions. No focal lesions within the chest, abdomen and pelvis to suggest metastatic disease. No lymphadenopathy. Thank you for letting us participate in the care of this patient. For questions regarding this report, please contact the number below. Electronically signed by: Den Crawford [facility] ([phone]), at 11/10/2019 3:48 PM Condition at discharge: Stable Mental Status: awake and alert, oriented x 3 Medications: Your Medications New Medications Dose Details enoxaparin 40 mg/0.4 mL Syrg Commonly known as: LOVENOX Inject 0.4 mLs subcutaneously daily for 24 days. Start taking on: November 16, 2019 40 mg Quantity: 9.6 mL Refills: 0 pantoprazole EC 40 mg Tbec Commonly known as: Protonix Take 1 tablet by mouth daily. 40 mg Quantity: 90 tablet Refills: 0 Continued medications, unchanged Dose Details acetaminophen 500 mg Tab Commonly known as: Tylenol Extra Strength Take 2 tablets by mouth every 6 hours as needed for Pain. 1,000 mg Quantity: 30 tablet Refills: 1 cyclobenzaprine 10 mg Tab Commonly known as: Flexeril Take 1 tablet by mouth 3 times daily as needed for Muscle spasms. 10 mg Quantity: 30 tablet Refills: 1 famotidine 40 mg Tab Commonly known as: Pepcid Take 1 tablet by mouth daily. 40 mg Quantity: 60 tablet Refills: 1 STOPPED Medications metroNIDAZOLE 500 mg Tab Commonly known as: FlagyL neomycin 500 mg Tab Commonly known as: Mycifradin ondansetron 8 mg Tab Commonly known as: Zofran Disposition: home Allergies: Allergies Allergen Reactions ??? Morphine Rash Outpatient Services/Studies: No discharge procedures on file. Scheduled Appointments: Future Appointments and Orders Future Appointments and Orders Future Appointments Provider Department Dept Phone 12/16/2019 3:30 PM Adam Dominique MD General Surgery at [facility] Arrive at: [place] Area Instructions Given to Patient at Discharge: Patient Instructions Colon and Rectal Surgery Patient Discharge Instructions Activity level: Avoid heavy lifting for the next 4-6 weeks or until cleared to do so at follow-up appointment. To expound on this, no straining, lifting, pushing, pulling greater than 10 lbs during this time frame. Do not engage in any activities that would engage your core/abdominal muscles. No running, jumping, etc. Otherwise activity as tolerated by comfort level. It is OK to walk, and you should be encouraged to walk frequently. Diet: Regular diet. You should try and drink 2 liters of fluids daily. Driving: No driving if you are still sore from surgery as it may limit your ability to react quicklyif necessary. Shower/Bath: You may shower and get incision(s) wet. Pat dry immediately following. Do not scrub them vigorously for the next 2-3 weeks. Do not soak incision(s) for the next 2 weeks (i.e. soaking in bath or swimming) as this may promote a wound infection. Wound Care: Remove gauze dressing if applied over wound. Wash incision with soap and water, pat dry,and leave open to air. You may cover with gauze as needed to prevent incision rubbing on clothes or for any seepage. Lovenox: You will remain on Lovenox for anticoagulation for a total of 28 days from day of surgery. Please refer to instruction from your nurse for home administration. Pain Medication: Tylenol should be used as primary [id number]-piuuifv pain reliever; 650mg every 6 hours or 1000mg every 8 hours as needed. Do not exceed 3000mg in 24 hours. Ibuprofen may also be used and dosed at 600mg every 6 hours as well. Ibuprofen should only be used for a maximum of 2 weeks post-op eratively. Follow up Appointments: You will receive a phone call and/or a letter in the mail with information about your appointments. Please call [phone] (clinic number for appointments only) to confirm date and time of your appointments or if you do not receive information about your appointment in a timely manner. For nursing questions, please call . Future Appointments Date Time Provider Department Center 12/16/2019 3:30 PM Adam Dominique MD [facility] SUR[facility] Call your doctor if: ??? You develop any of the following sings or symptoms of infection: o Redness or swelling of your incision (some mild redness around the incision and the staple sites is normal) o Drainage or bleeding from your incision o Fever over 100.5 F o Increased pain or discomfort at the incision site ??? Persistent nausea and/or vomiting or the inability to keep foods or fluids down in a 24 hour period. ??? Signs or symptoms of dehydration: o Dry mouth o Dark, concentrated urine, or lack of urine o Lightheadedness ??? Any other concerning sign or symptom such as shortness or breath, chest pain, pain with urination or other signs of urinary tract infection (UTI), or new leg pain/swelling. Also, please call if youdevelop increasing abdominal pain, abdominal firmness, if you stop passing gas or stool for an extended period of time, or bloody bowel movements/vomiting. CALL THE GENERAL SURGERY CLINIC DURING WORKING HOURS AT , OR CALL AFTERCLINIC HOURS, WEEKENDS AND HOLIDAYS: ASK FOR THE SURGERY RESIDENT SOLE TIER IF ANY OF THE ABOVE OCCUR. Divison of Colon and Rectal Surgery ??? [facility] ?[address] ??? [place] [address] ??? [phone] ??? ~~~~~~~~~~~~~~~~~~~~~~~~~~~~~~~~~~~~~~~~~~~~~~~~~~~~~~~~~~~~~~~~~~~ General Instructions None Updated Allergies/ADRs: No Known Allergies Follow-up Recommendations for Providers: None Provider Contact Information: [phone] Primary Susi Physician: Lily Warren APRN [facility] / [facility] 03* Signed: Padmaja Pierce MD 11/15/19 10:38 AM documented in this encounter Discharge Instructions Patient InstructionsPadmaja Pierce MD - 11/14/2019 11:38 AM EDT Images from the original note were not included. Colon and Rectal Surgery Patient Discharge Instructions Activity level: Avoid heavy lifting for the next 4-6 weeks or until cleared to do so at follow-up appointment. To expound on this, no straining, lifting, pushing, pulling greater than 10 lbs during this time frame. Do not engage in any activities that would engage your core/abdominal muscles. No running, jumping, etc. Otherwise activity as tolerated by comfort level. It is OK to walk, and you should be encouraged to walk frequently. Diet: Regular diet. You should try and drink 2 liters of fluids daily. Driving: No driving if you are still sore from surgery as it may limit your ability to react quicklyif necessary. Shower/Bath: You may shower and get incision(s) wet. Pat dry immediately following. Do not scrub them vigorously for the next 2-3 weeks. Do not soak incision(s) for the next 2 weeks (i.e. soaking in bath or swimming) as this may promote a wound infection. Wound Care: Remove gauze dressing if applied over wound. Wash incision with soap and water, pat dry,and leave open to air. You may cover with gauze as needed to prevent incision rubbing on clothes or for any seepage. Lovenox: You will remain on Lovenox for anticoagulation for a total of 28 days from day of surgery. Please refer to instruction from your nurse for home administration. Pain Medication: Tylenol should be used as primary vsdp-uih-trbislc pain reliever; 650mg every 6 hours or 1000mg every 8 hours as needed. Do not exceed 3000mg in 24 hours. Ibuprofen may also be used and dosed at 600mg every 6 hours as well. Ibuprofen should only be used for a maximum of 2 weeks post-op eratively. Follow up Appointments: You will receive a phone call and/or a letter in the mail with information about your appointments. Please call [phone] (clinic number for appointments only) to confirm date and time of your appointments or if you do not receive information about your appointment in a timely manner. For nursing questions, please call . Future Appointments Date Time Provider Department Center 12/16/2019 3:30 PM Adam Dominique MD [facility] Call your doctor if: ??? You develop any of the following sings or symptoms of infection: o Redness or swelling of your incision (some mild redness around the incision and the staple sites is normal) o Drainage or bleeding from your incision o Fever over 100.5 F o Increased pain or discomfort at the incision site ??? Persistent nausea and/or vomiting or the inability to keep foods or fluids down in a 24 hour period. ??? Signs or symptoms of dehydration: o Dry mouth o Dark, concentrated urine, or lack of urine o Lightheadedness ??? Any other concerning sign or symptom such as shortness or breath, chest pain, pain with urination or other signs of urinary tract infection (UTI), or new leg pain/swelling. Also, please call if youdevelop increasing abdominal pain, abdominal firmness, if you stop passing gas or stool for an extended period of time, or bloody bowel movements/vomiting. CALL THE GENERAL SURGERY CLINIC DURING WORKING HOURS AT , OR CALL AFTERCLINIC HOURS, WEEKENDS AND HOLIDAYS: ASK FOR THE SURGERY RESIDENT SOLE TIER IF ANY OF THE ABOVE OCCUR. Divison of Colon and Rectal Surgery ??? [facility] ??? [address] ??? [place] [address] ??? [phone] ??? ~~~~~~~~~~~~~~~~~~~~~~~~~~~~~~~~~~~~~~~~~~~~~~~~~~~~~~~~~~~~~~~~~~~ documented in this encounter Medications at Time of Discharge Medication Sig Dispensed Refills Start Date End Date enoxaparin (LOVENOX) 40 Inject 0.4 mLs 9.6 mL 0 11/16/19 20 12/02/2019 mg/0.4 mL Syringe subcutaneously daily for 24 days. pantoprazole EC Take 1 tablet by mouth 90 tablet 0 11/15/19 20 12/02/2019 (Protonix) 40 mg daily. Tablet, Delayed Release (E.C.) acetaminophen (Tylenol Take 2 tablets by 30 tablet 1 201912/02/2019 Extra Strength) 500 mg mouth every 6 hours as Tablet needed for Pain. famotidine (Pepcid) 40 Take 1 tablet by mouth 60 tablet 1 0 07/05/2019 12/02/2019 mg Tablet daily. cyclobenzaprine Take 1 tablet by mouth 30 tablet 1 07/05/19 20 12/02/2019 (Flexeril) 10 mg Tablet 3 times daily as needed for Muscle spasms. documented as of this encounter Progress Notes Mary Alice Velez RN - 11/15/2019 11:08 AM EDT VSS w/ pt on RA. Pain controlled w/ scheduled medications given. Lovenox teaching and video completed yesterday. Pt voiding spontaneously w/o issue. Pt w/ continued loose BMs today and blood noted in BM and POC occult test performed and +. MD notified and states it is expected finding r/t surgery. DC paperwork given to pt and spouse at bedside. No s/s of distress noted prior to dc. Pt ambulated several laps on unit this am w/ staff as SB assist. Pt dc'd to home at 11:05 am. Karen Ansari RN - 11/15/2019 9:57 AM EDT OFFICE OF CARE MANAGEMENT Mechanical Maintenance Supervisor Final DISCHARGE NOTE: Discussed Plan for discharge with primary team and pt's family. 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 is here to Drive patient home with family car. Mechanical Maintenance Supervisor to follow until discharged if any new needs arise. Karen Ansari RNCM Phone [phone] Pager: # [phone] Padmaja Pierce MD - 11/14/2019 3:57 PM EDT Colorectal Surgery Progress Note ID: Bryan Marmolejo is a 34 y.o. male previously healthy now 2 Days Post-Op s/p robotic assisted LAR with primary anastomosis for adenocarcinoma of the colon. 24H Events/Subjective: Tolerating regular diet Lozada removed with low PVRs, SC x1 for PVR >300 O: Physical Exam VS - (Temp: [36.6 ??C (97.9 ??F)-36.9 ??C (98.4 ??F)] ) Temp: 36.9 ??C (98.4 ??F), (Heart Rate: --) Heart Rate: 76, (BP: (113-117)/(66-73) ) BP: 113/66, (Resp: [15-18] ) Resp: 16, (SpO2: [95 %-97 %] ) SpO2: 97 % General: well appearing, NAD CV:RRR Pulm: CTAB, on RA, no w/r/r Abd: port sites and pfannenstiel incision well approximated with dermabond, soft, appropriately tender; bruise over pfannensitel incision, stable : no lozada Ext: no c/c/e; cap refil < 2 seconds Skin: warm, dry 11/12 07 - 11/13 07 In: 1861 [P.O.:1530; I.V.:331] Out: 2575 [Urine:2575] Labs: Recent Labs 11/13/19 0357 11/12/19 1804 HGB 14.5 14.8 HCT 41.2 42.5 Recent Labs 11/13/19 0357 11/12/19 1804 CREATININE 0.97 1.23 Imaging: A/P: Bryan Marmolejo is a 34 y.o. male now 2 Days Post-Op s/p robotic assisted LAR with primary anastomosis for new diagnosis of colonic adenocarcinoma, b/l ureteral stents removed intra-operatively. On ERAS pathway. Doing well this morning. Pain well controlled on current regimen, HDS. Tolerating diet, lozada removed and voiding spontaneously, ambulating. Feeling weak and unsafe to go home and it was decided to continue to monitor with plans to d/c home tomorrow. ?? Neuro: tylenol scheduled q6, gabapentin TID, tramadol CV: HDS, VS q4h Pulm: IS, ambulate x4 FEK/GI: regular diet, HLIV : d/c neville (11/12) ID:completed spring-op abx Ppx: OOB, lovenox, SCDs, ambulation Dispo: floor Attempt Cardiopulmonary Resuscitation - Inpatient Padmaja Pierce MD 11/14/2019 Colorectal Surgery [id number] Sangeeta Osorio RN - 11/14/2019 12:35 PM EDT OFFICE OF CARE MANAGEMENT Mechanical Maintenance Supervisor Note Sangeeta Osorio RN reviewed record and discussed patient with Care Team. Patient plan of care discussed in multidisciplinary rounds and assessment for continuing care and discharge needs. Diagnosis: Colon Cancer LOS Hospital: 2 days INSURANCE: Payor: [employer] / Plan: [employer] EMP / Product Type: *No Product type* / SECONDARY INSURANCE: N/A DECISION MAKER: Attempt Cardiopulmonary Resuscitation - Inpatient <no information> Patient is not medically ready for discharge today. No discharge needs identified at this time Transportation: will drive patient home via private vehicle when medically ready. Support: Mechanical Maintenance Supervisor to follow with team and family to assist with discharge needs when patient ready for discharge. Sangeeta Osorio RN Case Management pgr [phone] Edilia Bray - 11/13/2019 2:53 PM EDT Head Sampler Encounter Note Patient Name: Bryan Marmolejo : [id number] MR#: [id number] Admit Date: 11/12/2019 9:27 AM Hospital Day 2 days Follow-up spiritual care visit with pt's , Ruby, outside of Bryan's room on 4W, while he was resting. EDILIA BRAY 11/14/2019 Padmaja Pierce MD - 11/13/2019 10:50 AM EDT Colorectal Surgery Progress Note ID: Bryan Marmolejo is a 34 y.o. male previously healthy now 1 Day Post-Op s/p robotic assisted LAR with primary anastomosis for adenocarcinoma of the colon. 24H Events/Subjective: Transferred to floor from PACU Reporting lower back and incisional pain, well controlled this AM O: Physical Exam VS - (Temp: [35.7 ??C (96.3 ??F)-36.7 ??C (98.1 ??F)] ) Temp: 36.7 ??C (98.1 ??F), (Heart Rate: [50-85] ) Heart Rate: 84, (BP: (107-110)/(62-68) ) BP: 110/68, (Resp: [14-20] ) Resp: 16, (SpO2: [97 %-100 %] ) SpO2: 97 % General: well appearing, NAD CV:RRR Pulm: CTAB, on RA, no w/r/r Abd: port sites and pfannenstiel incision well approximated with dermabond, soft, appropriately tender : lozada in place Ext: no c/c/e; cap refil < 2 seconds Skin: warm, dry 11/11 700 - 11/12 699 In: 2682 [P.O.:275; I.V.:2407] Out: 1994 [Urine:1975] Labs: Recent Labs 11/13/19 0357 11/12/19 1804 HGB 14.5 14.8 HCT 41.2 42.5 Recent Labs 11/13/19 0357 11/12/19 1804 CREATININE 0.97 1.23 Imaging: A/P: Bryan Marmolejo is a 34 y.o. male now 1 Day Post-Op s/p robotic assisted LAR with primary anastomosis for new diagnosis of colonic adenocarcinoma, b/l ureteral stents removed intra-operatively. On ERAS pathway. Doing well this morning. Pain well controlled on current regimen, HDS. Will continue regular diet, HLIV, and remove lozada today with documentation of PVR x3 to avoid bladder distension in setting of a low dissection intra-operatively. Will continue to monitor. ?? Neuro: tylenol scheduled q6, gabapentin TID, toradol, tramadol CV: HDS, VS q4h Pulm: IS, ambulate x4 FEK/GI: regular diet; HLIV : d/c lozada with PVR x3 ID:completed spring-op abx Ppx: OOB, lovenox, SCDs, ambulation Dispo: floor Attempt Cardiopulmonary Resuscitation - Inpatient Padmaja Pierce MD 11/13/2019 Colorectal Surgery [id number] Kristin Mccabe - 11/13/2019 8:49 AM EDT Colorectal Surgery Progress Note ID: Bryan Marmolejo is a 34 y.o. male w/ PMH of newly diagnosed invasive adenocarcinoma of the sigmoid colon now POD1 s/p lap sigmoidectomy with temporary b/l ureteral stent placement removed (11/11). Subjective: Bryan has been generally recovering well since his surgery. He reports pain in his lowerback and and around his incisions. Pain level in AM reported to be minimal. O: Physical Exam VS - (Temp: [35.7 ??C (96.3 ??F)-36.7 ??C (98.1 ??F)] ) Temp: 36.7 ??C (98.1 ??F), (Heart Rate: [50-85] ) Heart Rate: 84, (BP: (107-110)/(62-68) ) BP: 110/68, (Resp: [14-20] ) Resp: 16, (SpO2: [97 %-100 %] ) SpO2: 97 % General: well appearing, NAD CV:RRR Pulm: CTAB, no w/r/r Abd: incisions C/D/I with glue. ab soft, appropriate tenderness to palpation near lower incisions; non-distended Ext: no c/c/e; cap refil < 2 seconds Skin: warm, dry 11/11 07 - 11/12 07 In: 268 [P.O.:275; I.V.:2407] Out: 1994 [Urine:1975] Labs: Recent Labs 11/13/19 0357 11/12/191803 HGB 14.5 14.8 HCT 41.2 42.5 Recent Labs 11/13/19 0357 11/12/19 180 CREATININE 0.97 1.23 Imaging: Ct Chest Abdomen Pelvis W Contrast (generic) Result Date: 11/10/2019 EXAMINATION: CT CHEST ABDOMEN PELVIS W CONTRAST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 The risks, benefits and alternatives were discussed in detail including the risks of bleeding infection, need for additional procedures, cardiac, pulmonary and renal complications. All of his questions were answered to his satisfaction and he agreed to proceed. Procedure Description: After appropriate identification and obtaining informed consent in the pre-opholding area, the patient was brought to the operating theater, placed supine on the operating tablewhere general anesthesia was induced. IV antibiotics and pharmacologic VTE prophylaxis were administered and SCD's were applied. The patient was transferred to modified lithotomy position and all pressure points were padded. Both arms were tucked at the patient's sides. A surgical safety time out was performed and all present were in agreement. A cystoscopy and bilateral ureteral stents were placed by the Urology team, please see their documentation for details of this portion of the procedure. The patient was then prepped and draped in the usual sterile fashion. Using electrocautery, a 8mm linear incision was made along the left superior border of the umbilicusand using an optiview trochar, entrance to the abdomen was achieved. No evidence of bowel injury andthe abdomen was insufflated to 15mmHg inspected for evidence of metastatic disease or other unanticipated finding and neither was evident. A bilateral TAP block was performed with 20mL of 0.5% bupivicaine per side. One additional 8mm port and the 12mm were placed in right abdomen under direct visualization. An additional port was placed in the left lower quadrant and the microbiology lab assistant port was laced laterally in the right abdomen. Using the hot scissors, the peritoneum overlying the base of the sigmoid colon mesentery was incised and this was carried proximally towards the base of the YADIEL and distally along the anterior aspect of the right iliac artery. The mesentery was then dissected off retroperitoneum along the left iliac to the pelvic side wall. The left ureter was clearly identified and protected at all times. After achieving adequate mobilization of the mesocolon and development of the retromesocolic space, the YADIEL was ligated at it's origin using the Vessel sealer device with adequate hemostasis. The lateral attachments of the sigmoid colon were divided using the Ligasure and the colon was freed from the lateral pelvic and abdominal side hayes. The white line of Toldt was incised in a caudal to cranial direction to the level of the mid descending colon and the retroperitoneal attachments were mobilized with a combination of blunt dissection and the ligasure device. Using the flexible sigmoidoscope the location of the lesion was confirmed and the adjacent mesentery marked with cautery. Once adequate mobilization of the proximal colon was achieved, we turned our attention the the distal colon. Immediately anterior to the sacral promontory the proximal rectum was identified. The pericolorectal fat was incised using the Vessel sealer to allow passage of the stapler. Powered stapling device device with a 60mm blue load the bowel was divided with a single firing. The proximal aspect of the staple line was grasped with a locking vj and a low 8cm Pfanensteil incision was made, an Kole wound protector placed and the bowel eviscerated. The proximal point of transection was identified and the mesentery divided with the vessel sealer. IV administration of 6mL of IC green and utilization of the firefly technology confirmed adequate flow to the colon conduit. Once the proximal, soft bowel was identified, this was cross-clamped with a non crushing bowel clampproximally and a Alee clamp distally and divided sharply with a scalpel. There was brisk back bleeding from the cut edge. The anvil of the 29mm EEA stapler was soaked in betadine and introduced into the bowel lumen and a 2-0 prolene pursestring was fashioned. The bowel was returned to the abdomen and the abdomen was again insufflated to 15mmHg. The microbiology lab assistant then sequentially passed the sizing devices up to 29mm into the proximal rectum without complication. The EEA was introduced and positioned in the proximal rectum. The spike was deployed anterior to the rectal staple line with minor tearing of the rectum, this was incorporated into the distal donut and the anvil connected. The stapler was closed and fired without complication to create a tension free anastomosis. The anastomotic donuts were intact. The pelvis was filled with saline solution and the flexible sigmoidoscope was introduced into the rectum. The rectum was insuflated with pressure applied to occlude the lumen proximal to the staple anastomosis. There was no evidence of leak and the anastomosis appeared intact and hemostatic from the luminal view. We then transitioned to the closing instruments, the 12mm port was closed with 0-Vicryl and the pfanensteil was closed in layers, the peritoneal layer was closed with 2-0 Vicryl and the fascia approximated with 0-PDS. The subcutaneous tissue was again irrigated with Irrisept, the skin at all sites wasclosed with 4-0 Monocryl and dressed with derma mora. All counts were correct and both ureteral stents were removed at the end of the case. And the patient appeared to tolerate the procedure well. Infection Bundle used? Yes Infection present at time of surgery? No Chlorhexidine bathing night and morning before surgery: Yes Chlorhexidine wipes in Same Day prior to surgery: Yes Mechanical bowel prep: Yes Oral antibiotic prep: Yes, Flagyl + Neomycin Fingerstick glucose checked in Same Day: Yes Chlorhexidine-alcohol skin prep: Yes Pre-op IV antibiotics: Levofloxacin plus metronidazole Wound protector used: Yes Chlorhexidine (Irrisept) Wound Irrigation: No Sterile closure tray: No New suction/cautery for closure: No Gown and glove change for closure: No Re-draping for closure: No Attestation: Case Date: 11/12/2019 I was present and I participated during the entire procedure (does not need to include opening and closing). Adam Dominique MD 11/12/2019 Brief Op Note - Baudilio Jacob MD - 11/12/2019 5:02 PM EDT Brief Operative Note Patient Name: Bryan Marmolejo : [id number] MR#: [id number] Case Date: 11/12/2019 Surgeon: Surgeon(s) and Role: Panel 1: * Adam Dominique MD - Primary * Tramaine Gloria PA - Physician Honey Liquefier * Baudilio Jacob MD - Resident Panel 2: * Benjy Reagan MD - Primary * Leroy Escobedo MD Preoperative diagnosis: COLON CANCER Postoperative diagnosis: COLON CANCER Procedure(s) (LRB): @ROBOTIC,LAPAROSCOPY,SURGICAL,ENTERECTOMY,RESECTION OF SMALL INTESTINE,SINGLE RESECTION AND ANASTOMOSIS (N/A) SIGMOIDOSCOPY, FLEXIBLE W/WO SPECIMEN BY BRUSHING OR WASHING (WRVU 0.84) (N/A) MODIFIER ROBOT,JYOTII XI (N/A) CYSTO, STENT PLACEMENT INTRAOP, TEMPORARY (WRVU 2.82) (Bilateral) IV INJECTION, AGENT TO TEST VASC FLOW IN FLAP OR GRAFT, ENT (WRVU 1.95) Anesthesia: General endotracheal Findings: Mid-sigmoid lesion visualized on sigmoidoscopy. Robotic assisted low anterior resection with specimen extraction via pfannenstiel incision. Intact anastomosis and negative leak test on sigmoidoscopy. Ureteral stents removed at the end of case. Complications: None apparent Estimated Blood Loss: 20 mL Specimens removed during surgery: Order Name Source Comment Collection Info Order Time SPECIMEN TO PATHOLOGY COLON CANCER sigmoid colon excision No 11/12/2019 3:54 PM Time specimen removed from patient: 3:54 PM Number of tissue samples (in container) 1 Biospecimen to store? No SPECIMEN TO PATHOLOGY COLON CANCER distal anastomsis excision No 11/12/2019 4:30 PM Time specimen removed from patient: 4:30 PM Number of tissue samples (in container) 1 Biospecimen to store? No SPECIMEN TO PATHOLOGY COLON CANCER proximal anastomosis excision No 11/12/2019 4:31 PM Time specimen removed from patient: 4:31 PM Number of tissue samples (in container) 1 Biospecimen to store? No Fluids: 1500 mL crystalloid PRBCs: none (See Anesthesia Record/Report for Other Blood Products) Urine Output: (no urine output recorded) Drains: None Disposition: awakened from anesthesia, extubated and taken to the recovery room in a stable condition, having suffered no apparent untoward event. Condition: doing well without problems (Please see the Surgical Encounter Summary for any Implant and Specimen details pertinent to this patient.) Infection Bundle used? Yes Infection present at time of surgery? No Chlorhexidine bathing night and morning before surgery: Yes Chlorhexidine wipes in Same Day prior to surgery: Yes Mechanical bowel prep: Yes Oral antibiotic prep: Yes, Flagyl + Neomycin Fingerstick glucose checked in Same Day: Yes Chlorhexidine-alcohol skin prep: Yes Pre-op IV antibiotics: Levofloxacin plus metronidazole Wound protector used: Yes Chlorhexidine (Irrisept) Wound Irrigation: Yes Sterile closure tray: No New suction/cautery for closure: No Gown and glove change for closure: No Re-draping for closure: No Op Note - Luis Felipe Mendoza MD - 11/12/2019 2:28 PM EDT [facility] Operative Note Patient Name: Bryan Marmolejo : [id number] MR#: [id number] Case Date: 11/12/2019 Surgeon: Surgeon(s) and Role: Panel 1: * Adam Dominique MD - Primary * Tramaine Gloria PA - Physician Honey Liquefier * Baudilio Jacob MD - Resident Panel 2: * Benjy Reagan MD - Primary * Leroy Escobedo MD Preoperative diagnosis: COLON CANCER Postoperative diagnosis: * No post-op diagnosis entered * Procedure(s) (LRB): @ROBOTIC,LAPAROSCOPY,SURGICAL,ENTERECTOMY,RESECTION OF SMALL INTESTINE,SINGLE RESECTION AND ANASTOMOSIS (N/A) SIGMOIDOSCOPY, FLEXIBLE W/WO SPECIMEN BY BRUSHING OR WASHING (WRVU 0.84) (N/A) MODIFIER ROBOT,DAVINCI XI (N/A) CYSTO, STENT PLACEMENT INTRAOP, TEMPORARY (WRVU 2.82) (Right) Findings: normal appearing bladder, orthotopic ureteral orifices, bilateral 5F pollack ureteral catheters placed without resistance showing return of urine, catheters secured to eydelman catheter with silk ties. Anesthesia: General Estimated Blood Loss: minimal Specimens removed during surgery: None Drains: bilateral 5F pollack ureteral catheters Surgical Closure: No incision made, no closure necessary Disposition: case turned over to CRS for completion Condition: under general anesthesia (Please see the Surgical Encounter Summary for any Implant and Specimen details pertinent to this patient.) HPI/Surgical Indications: Bryan Marmolejo is a 34 y.o. male with history of sigmoid adenocarcinoma, presenting for planned sigmoiectomy. Urology assistance requested for temporary bilateral ureteral stent placement. Procedure Description: The patient was identified in the pre-operative holding area. Consent was verified. No site marking needed for urology portion of procedure as procedure was bilateral. The patient was taken to the operating room and placed supine on the operating table. General anesthesia was induced. The patient was then moved to the lithotomy position and prepped and draped in the usual sterile fashion. A timeout was performed involving all members of the OR team confirming the patient's identity and planned procedure. Preoperative antibiotics were administered. A 22 Fr rigid cystoscope was inserted into the bladder. A brief visual inspection of the bladder revealed a grossly normal bladder without tumors, foreign bodies, or stones. The ureteral orifices were noted to be in orthotopic position. A 5 Fr Pollack catheter was passed with assistance of a wire into the left ureteral orifice. A second Pollack catheter was passed without difficulty into the contralateral ureteral orifice. The bladder was emptied. The cystoscope was removed. A 16 Fr Analisa catheter was placed. Ten mL of water were used to inflate the balloon. The Pollack catheters were secured to the Analisa catheter. The case was turned over to colorectal surgery to continue with their procedure. The patient toleratedthe procedure well. There were no complications. Dr. Reagan, the attending surgeon, was available for the entire procedure. Infection Bundle used? N/A Associated attestation - Benjy Reagan MD - 11/12/2019 3:09 PM EDT Attestation: Case Date: 11/12/2019 I was the teaching physician involved in this case. However, I did not furnish services as describedabove. (Non-Billable) Benjy Reagan MD 11/12/2019 documented in this encounter Plan of Treatment Upcoming Encounters Date Type Specialty Care Team Description 12/15/2021 Hospital Encounter Gastroenterology eBnjy Tavera MD [facility] [place], [place] [address] 12/15/2021 Surgery Gastroenterology Benjy Tavera COLONOSC Ben PULIDO MD DIAGNOSTIC [facility] [place], [place] [address] Scheduled Procedures Name Priority Associated Diagnoses Date/Time COLONOSCOPY, DIAGNOSTIC 1 year colo 12/16/19 22 8:30 AM EST documented as of this encounter Procedures Procedure Name Priority Date/Time Associated Comments Diagnosis HC VENIPUNCTURE Routine 11/13/2019 3:57 AM Result s for this EDT procedure are i n the results section. HC HEMOGLOBIN, BLOOD Routine 11/13/2019 3:57 AM R esults for this EDT procedure are i n the results section. HC CREATININE STAT 11/12/2019 6:04 PM Results for this EDT procedure are i n the results section. HC HEMOGLOBIN, BLOOD STAT 11/12/2019 6:04 PM R esults for this EDT procedure are i n the results section. SPECIMEN TO PATHOLOGY Routine 11/12/2019 4:31 PM Results for this EDT procedure are i n the results section. SPECIMEN TO PATHOLOGY Routine 11/12/2019 4:30 PM Results for this EDT procedure are i n the results section. SURGICAL PATHOLOGY Routine 11/12/2019 3:54 PM Res ults for this REPORT EDT procedure are i n the results section. SPECIMEN TO PATHOLOGY Routine 11/12/2019 3:54 PM Results for this EDT procedure are i n the results section. IV INJECTION, AGENT Yes 11/12/2019 1:44 PM COLON CANCER TO TEST VASC FLOW IN EDT FLAP OR GRAFT, ENT (WRVU 1.95) CYSTO, STENT Yes 11/12/2019 1:44 PM COLON CANCER PLACEMENT INTRAOP, EDT TEMPORARY (WRVU 2.82) MODIFIER Yes 11/12/2019 1:44 PM COLON CANCER ROBOT,DAVINCI XI EDT SIGMOIDOSCOPY, Yes 11/12/2019 1:44 PM COLON CANCER FLEXIBLE W/WO EDT SPECIMEN BY BRUSHING OR WASHING (WRVU 0.84) @ROBOTIC,LAPAROSCOPY, Yes 11/12/2019 1:44 PM COLON CANCER SURGICAL,ENTERECTOMY, EDT RESECTION OF SMALL INTESTINE,SINGLE RESECTION AND ANASTOMOSIS POCT GLUCOSE Routine 11/12/2019 10:48 Results for this AM EDT procedure are i n the results section. documented in this encounter Results Hemoglobin and Hematocrit, blood (11/13/2019 3:57 AM EDT) P athologist Signature Hemoglobin 14.5 13.7 - 16.5 [facility] gm/dL [facility] Hematocrit 41.2 40.5 - 48.5 [facility] Specimen Anatomical Collection Method Collection Time Receive d Time (Source) Location / / Volume Laterality Blood specimen 11/13/2019 3:57 AM 020 4:05 (specimen) EDT AM EDT Resulting Agency Comment Spec In Lab Adam Dominique MD HEMATOLOGY ORDERABLES Performing Organization Address City/State/ZIP [place] [address] Creatinine (11/13/2019 3:57 AM EDT) athologist Signature Creatinine 0.97 0.80 - [place] 1.50 mg/dL [facility] Estimated GFR 101 >=60 [place] mL/min/1.7 [facility] 3 m?? [facility] Comment: The eGFR was calculated using the CKD-EP I equation. As with all creatinine based estimates of kidney function, eGFR values calculated with the CKD-EPI equation are not accurate in patients wi th acute kidney failure, extremes of body mass or the acutely ill. [email or web address] eGFR 118 >=60 mL/min/1.73 m?? [facility] Comment: The eGFR was calculated using the CKD-EP I equation. As with all creatinine based estimates of kidney function, eGFR values calculated with the CKD-EPI equation are not accurate in patients wi th acute kidney failure, extremes of body mass or the acutely ill. [email or web address] Specimen Anatomical Collection Method Collection Time Receive d Time (Source) Location / / Volume Laterality Blood specimen 11/13/2019 3:57 AM 4:05 (specimen) EDT AM EDT Resulting Agency Comment Spec In Lab Adam Dominique MD CHEMISTRY ORDERABLES Performing Organization Address City/State/[facility] Code Phon e Number [address] Hemoglobin and Hematocrit, blood (11/12/2019 6:04 PM EDT) athologist Signature Hemoglobin 14.8 13.7 - 16.5 [place] gm/dL [facility] Hematocrit 42.5 40.5 - 48.5 [facility] Specimen Anatomical Collection Method Collection Time Receive d Time (Source) Location / / Volume Laterality Blood specimen 11/12/2019 6:04 PM 020 6:22 (specimen) EDT PM EDT Resulting Agency Comment Spec In Lab Adam Dominique MD HEMATOLOGY ORDERABLES Performing Organization Address City/[facility]/ZIP Code Phon e Number [address] Creatinine (11/12/2019 6:04 PM EDT) athologist Signature Creatinine 1.23 0.80 - [place] 1.50 mg/dL [facility] Estimated GFR 76 >=60 [place] mL/min/1.7 [facility] 3 m?? H[facility]PITAL [facility] Comment: The eGFR was calculated using the CKD-EP I equation. As with all creatinine based estimates of kidney function, eGFR values calculated with the CKD-EPI equation are not accurate in patients wi th acute kidney failure, extremes of body mass or the acutely ill. [email or web address] eGFR 88 >=60 mL/min/1.73 m?? [facility] Comment: The eGFR was calculated using the CKD-EP I equation. As with all creatinine based estimates of kidney function, eGFR values calculated with the CKD-EPI equation are not accurate in patients wi th acute kidney failure, extremes of body mass or the acutely ill. [email or web address] Specimen Anatomical Collection Method Collection Time Receive d Time (Source) Location / / Volume Laterality Blood specimen 11/12/2019 6:04 PM 020 6:22 (specimen) EDT PM EDT Resulting Agency Comment Spec In Lab Adam Dominique MD CHEMISTRY ORDERABLES Performing Organization Address City/State/ZIP Code Phon e Number [address] Specimen to Pathology (11/12/2019 4:31 PM EDT) Specimen Anatomical Collection Method Collection Time Receive d Time (Source) Location / / Volume Laterality AP Specimen 11/12/2019 4:31 PM 0 4:31 EDT PM EDT Narrative [facility] - 11/12/2019 4:31 PM EDT Specimen requisition ordered. ??Separate Pathology report to follow Adam Dominique MD PATHOLOGY/CYTOLOGY ORDERABLE S Performing Organization Address City/[facility]/ZIP Code Phon e Number [address] Specimen to Pathology (11/12/2019 4:30 PM EDT) Specimen Anatomical Collection Method Collection Time Receive d Time (Source) Location / / Volume Laterality AP Specimen 11/12/2019 4:30 PM 0 4:30 EDT PM EDT Narrative [facility] - 11/12/2019 4:30 PM EDT Specimen requisition ordered. ??Separate Pathology report to follow Adam Dominique MD PATHOLOGY/CYTOLOGY ORDERABLE S Performing Organization Address City/State/[place] [address] Surgical Pathology Report (11/12/2019 3:54 PM EDT) Component Value Ref Test Analysis Performed At [facility] gist Range Method Time Signature Surgical [id number] ? Location: 4WST; 0404; A [facility] Report The signing pathologist has (i) examined the relevant preparation(s) for the [facility] specimen(s) and (ii) rendered or confirmed the diagnosis(es) . HOSPITAL LABORATORY . ?Surgic al Pathology DIAGNOSIS A - Sigmoid colon: No residual invasive ?? adenocarcinoma (see Synoptic Report below) ??. Segment of colon with granul ation tissue and regenerative changes, consistent with prior polypectomy site. B - Distal anastomosis: Segment of colon within normal limits. C - Proximal anastomosis: Segment of colon within normal limits. CR-PX Electronically signed by: ??Theo PLUNKETT PhD, Ila Verified: ??11/25/2019 ?Pathologist Performed at: ??-[facility] Dept. of Pathology, [place], [place] SYNOPTIC Specimen Parts: ??Parts A-C Specimen ? Procedure: ??Sigmoidectomy Tumor ? Tumor Site: ??Cannot be determined - No residua l tumor ? Histologic Type: ??No residual tumor ? Histologic Grade: ??Not applicable - No residua l tumor ? Tumor Size: ??Cannot be determined - No residua l tumor ? Tumor Extension: ??No evidence of primary tumor ? Macroscopic Tumor Perforation: ??Not identified ? Lymphovascular Invasion: ??Not identified ? Perineural Invasion: ??Not identified ? Tumor Budding: ??Cannot be determined - No resi dual tumor ? Treatment Effect: ??No known presurgical therap y Margins ? Margins: ??All margins are uninvolved by invasive carcinoma, high grade ?dysplasia / intramucosal carcinoma, and low g rade dysplasia ? Margins Examine d: ??Proximal; ??Distal; ??Radial (circumferential) or Mesenteric Lymph Nodes ? Number of Lymph Nodes Involved: ??0 ? Number of Lymph Nodes Examined: ??22 ? Tumor Deposits: ??Not identified Pathologic Stage Classification (pTNM, AJCC 8th Edition) ? Primary Tumor (pT): ??pT0 ? Regional Lymph Nodes (pN): ??pN0 Normal Block(s): ??A26, B1, C1 CAP eCC May [address] Varsha Bender has reviewed this case and agrees wi th the diagnosis. SPECIMEN(S) SUBMITTED A - sigmoid colon, excision (1) B - distal anastomosis, excision (1) C - proximal anastomosis, excision (1) . CLINICAL INFORMATION Colon cancer SPECIMEN PROCESSING A - Labeled/Fixative: Sigmoid colon, formalin. Resection Specimen: Opened, partial colectomy. Overall Size: 16 x 10.5 x 4.5 cm. Length/Diameter: 11.5 x 3.0 cm. External Architecture: Preserved. Serosa: Harrison-pink, covered in mesentery. Lesion ??Lesion Site: Sigmoid colon. ??Lesion Size: 1.5 x 0.8 x 0.7 cm. ??Lesion Configuration: Polypoid, nodular mass. ??Lesion Color: Brown. ??Lesion Consistency: Firm, rubbery. ??Depth of invasion: Extends into the muscularis propria. ??Gross Tumor Perforation: Not identified. ??Margins: ?-8.5 cm from proximal margin. ?-2.7 cm from distal margin. ?-4.0 cm from mesenteric margin. OTHER Lymph Node: Lymph nodes are harvested from the primary tad basin. Status of residual bowel: Intact and preserved. Ink Designation: None. Sections/Processing: Communications Controller sections in 31 cassettes as follows: ?A1-A2: ??proximal margin ?A3-A4: ??distal margin ?A5: ??lesion to serosa ?A6: ??lesion to adjacent mucosa ?A7-A8: ??lesion to deepest invasion ?A9: ??Lymph node ?A10: ??Two lymph nodes ?A11: ??Lymph node ?A12: ??Lymph node ?A13: ??Five lymph nodes ?A14: ??Lymph node ?A15: ??Four lymph nodes ?A16: ??Five lymph nodes ?A17: ??Lymph node ?A18: ??Six lymph nodes ?A19: ??Lymph node ?A20: ??Lymph node ?A21: ??Lymph node ?A22: ??Lymph node ?A23-A25: ??Mesenteric margin ?A26-A27: ??Additional mucosa adjacent to lesion ?A28: ??0.2 x 0.2 cm mucosal polyp, 7 cm from primary l esion ?A29-A31: ??Multiple in tact lymph nodes, second node search in primary tad basin B - Labeled/Fixative: Distal anastomosis, formalin. Quantity/Size: Single, 1.7 x 1.4 x 0.7 cm. Tissue Description: Harrison-brown rubbery firm tissue with stapl e line. Sections/Processing: Radially sectioned and entirely submitted in 1 cassette wisame tavon B1. C - Labeled/Fixative: Proximal anastomosis, formalin. Quantity/Size: Single, 1.9 x 1.7 x 1.0 cm. Tissue Description: Harrison-brown rubbery firm tissue with blue suture line. Sections/Processing: Radially sectioned and entirely submitted in 2 cassettes lab eled C1-C2. ??RT shivani Specimen (Source) Anatomical Collection Method Collection Time Re ceived Time Location / / Volume Laterality 11/12/2019 3:54 PM EDT Adam Dominique MD PATHOLOGY/CYTOLOGY ORDERABLE S Performing Organization Address City/State/[place] [address] Specimen to Pathology (11/12/2019 3:54 PM EDT) Specimen Anatomical Collection Method Collection Time Receive d Time (Source) Location / / Volume Laterality AP Specimen 11/12/2019 3:54 PM 0 3:54 EDT PM EDT Narrative [facility] - 11/12/2019 3:54 PM EDT Specimen requisition ordered. ??Separate Pathology report to follow Adam Dominique MD PATHOLOGY/CYTOLOGY ORDERABLE S Performing Organization Address City/[facility]/[place]IP [place] [address] POCT Glucose (11/12/2019 10:48 AM EDT) P athologist Signature POC Glucose 88 65 - 199 [facility] mg/dL [facility] Comment: Supplemental ranges: <140 mg/dL before meals <180 mg/dL all other times of the day Specimen Anatomical Collection Method Collection Time Receive d Time (Source) Location / / Volume Laterality Blood specimen 11/12/2019 10:48 0 (specimen) AM EDT 10:48 AM EDT Adam Dominique MD POINT OF CARE TEST ORDERABLE S Performing Organization Address City/State/[place] [address] documented in this encounter Visit Diagnoses Diagnosis Colon cancer Malignant neoplasm of colon, unspecified site documented in this encounter Admitting Diagnoses Diagnosis Colon cancer Malignant neoplasm of colon, unspecified site documented in this encounter Administered Medications Inactive Administered Medications - up to 3 most recent administrations Medication Order MAR Action Action Date Dose Rate Site acetaminophen (Tylenol) tablet Given 11/15/2019 6:33 AM EDT 1,00 0 mg 1,000 mg 1,000 mg, Oral, EVERY 6 HOURS, First dose on Mon11/12/19 at 1815, Until Discontinued, Do not exceed 4,000 mg in 24 hours., Routine Given 11/15/2019 12:27 AM EDT 1,000 mg Given 11/14/2019 5:17 PM EDT 1,000 mg enoxaparin (LOVENOX) injection 40 mg Given 11/13/2019 8:36 PM EDT 40 mg 40 mg, Subcutaneous, NIGHTLY, First dose on Mon11/12/19 at 2100, Until Discontinued, Routine Given 11/12/2019 9:25 PM EDT 40 mg enoxaparin (LOVENOX) injection 40 mg Given 11/15/2019 8:40 AM EDT 40 mg 40 mg, Subcutaneous, EVERY 24 HOURS SCHEDULED, First dose on Leyla 11/14/19 at 0900, Until Discontinued, Please do Lovenox teaching this morning :), Routine Given 11/14/2019 9:43 AM EDT 40 mg Abdom inal Tissue gabapentin (Neurontin) capsule 300 mg Given 11/15/2019 8:40 AM EDT 300 mg 300 mg, Oral, 3 TIMES DAILY, First dose on Mon11/12/19 at 2100, Until Discontinued, Routine Given 11/14/2019 8:42 PM EDT 300 mg Given 11/14/2019 2:13 PM EDT 300 mg heparin (Porcine) Given 11/12/2019 1:39 PM 5,000 Units Right Lower subcutaneous injection EDT Qu adrant 5,000 Units 5,000 Units, Subcutaneous, ONCE, 1 dose, On Mon11/12/19 at 1100, First dose must be given in the pre-op holding area prior to transport to the OR, Day of Surgery (Day of Procedure), Routine HYDROmorphone (DILAUDID) injection 0.4-0 .6 mg Given 11/12/2019 6:50 PM EDT 0.4 mg 0.4-0.6 mg, Intravenous, EVERY 5 MIN PRN, Starting on Mon11/12/19 at 1638, Until Mon11/12/19 at 1957, Pain, Give 0.4 mg every 5 minutes PRN for mild to moderate pain (1-5) Give 0.6 mg every 5 minutes PRN for moderate to severe pain (6-10). Hold for respiratory rate less than 10 per minute. Maximum dose 4 mg over one hour. If multiple pain medications are ordered, start with hydromorphone or morphine and use fentanyl for breakthrough pain., PACU Recovery, Routine Given 11/12/2019 6:39 PM EDT 0.4 mg Given 11/12/2019 6:26 PM EDT 0.4 mg ketorolac (TORADOL) injection 15 mg Given 11/14/2019 2:13 PM EDT 15 mg 15 mg, Intravenous, USER SPECIFIED (4 times per day), 20 doses, First dose on Mon11/12/19 at 2100, Last dose on Mon11/17/19 at 1500, Do not administer with other NSAIDS, Routine Given 11/14/2019 9:44 AM EDT 15 mg Given 11/14/2019 3:29 AM EDT 15 mg lactated ringers infusion New Bag 11/12/2019 6:27 PM EDT 1,000 mLs 42 mL/hr 1,000 mL, at 42 mL/hr, Intravenous, CONTINUOUS, Starting on Mon11/12/19 at 1815, Until Mon11/13/19 at 1437, Recovery (Recovery-Hospital Unit) ondansetron ODT (Zofran-ODT) disintegrating Given 11/13/2019 2:4 9 PM EDT 8 mg tablet 8 mg 8 mg, Oral, EVERY 8 HOURS, 3 doses, First dose on Mon11/12/19 at 2100, Last dose on Mon11/13/19 at 1300, Recovery (Recovery-Hospital Unit), Routine Given 11/13/2019 6:24 AM EDT 8 mg pantoprazole EC (Protonix) tablet 40 mg Given 11/15/2019 8:40 AM EDT 40 mg 40 mg, Oral, DAILY, First dose on Mon11/12/19 at 1815, Until Discontinued, DO NOT CRUSH OR OPEN, Routine Given 11/14/2019 9:44 AM EDT 40 mg Given 11/13/2019 9:17 AM EDT 40 mg phenol 1.4% (CHLORASEPTIC) spray 1 spray Given 11/15/2019 2:11 AM EDT 1 spray 1 spray, Oral, EVERY 4 HOURS PRN, Starting on Mon11/15/19 at 0046, Until Mon11/15/19 at 1311, Irritation, Routine sodium chloride 0.9 % (flush) flush 5 mL Given 11/14/2019 8:42 PM EDT 5 mLs 5 mL, Intravenous, 2 TIMES DAILY, First dose on Mon11/12/19 at 2100, Until Discontinued, Recovery (Recovery-Hospital Unit), Routine Given 11/14/2019 9:44 AM EDT 5 mLs Given 11/13/2019 8:36 PM EDT 5 mLs traMADoL (Ultram) tablet 50 mg Given 11/12/2019 6:23 PM EDT 50 mg 50 mg, Oral, EVERY 6 HOURS PRN, Starting on Mon11/12/19 at 1757, Until Mon11/15/19 at 1311, Pain, May repeat 50 mg in 60 minutes if pain is not relieved. Contraindications with MAO inhibitors. Because of the potential risk and severity of serotonin syndrome or neuroleptic malignant syndrome - Like reactions, caution should be observed when administering selective serotonin reuptake inhibitors (SSRIs) with tramadol., Routine documented in this encounter Active and Recently Administered Medications Times are shown in EDT. Scheduled Medication Order 11/13/2019 11/14/2019 11/15/2019 acetaminophen (Tylenol) tablet 1,000 mg 0623 (Given - Provider: Masha Justice RN)1125 (Given - Provider: Michelle Gutierrez RN)1829 (Given - Provider: Michelle Gutierrez RN) 0023 (Given - Provider: Stephy Rowley RN)0532 (Given - Provider: Stephy Rowley RN)1204 (Given - Provider: Wanda Frias, BEATA)1717 (Given - Provider: Wanda Frias RN) 0027 (Given - Provider: Stephy Rowley RN)0633 (Given - Provider: Stephy Rowley RN) 1,000 mg, Oral, EVERY 6 HOURS, First dos e on Mon11/12/19 at 1815, Until Discontinued, Do not exceed 4,000 mg in 24 hours., Routine enoxaparin (LOVENOX) injection 40 mg (CANCELED) 2035 ( Given - Provider: Stephy Rowley RN) 40 mg, Subcutaneous, NIGHTLY, First dose on Mon11/12/19 at 2100, Until Discontinued, Routine enoxaparin (LOVENOX) injection 40 mg 094 3 (Given - Provider: Wanda Frias RN) 0840 (Given - Provider: Mary Alice Velez, BEATA) 40 mg, Subcutaneous, EVERY 24 HOURS SCHE DULED, First dose on Mon11/14/19 at 0900, Until Discontinued, Please do Lovenox teaching this morning :), Routine gabapentin (Neurontin) capsule 300 mg 0917 (Given - Pr ovider: Michelle Gutierrez RN)1450 (Given - Provider: Wanda Killian RN)203 (Given - Provider: Stephy Rowley RN) 0943 (Given - Provider: Wanda marshall RN)1413 (Given - Provider: Mary Alice Velez, BEATA)2041 (Given - Provider: Stephy Rowley RN) 0840 (Given - Provider: Mary Alice Velez RN) 300 mg, Oral, 3 TIMES DAILY, First dose on Mon11/12/19 at 2100, Until Discontinued, Routine ketorolac (TORADOL) injection 15 mg (CANCELED) 0330 (G iven - Provider: Masha Justice RN)0918 (Given - Provider: Michelle Gutierrez RN)1601 (Given - Provider: Michelle Gutierrez, BEATA)211 (Given - Provider: Stephy Rowley RN) 0329 (Given - Provider: Stephy Rowley RN)0944 (Given - Provider: Wanda Frias RN)1413 (Given - Provider: Mary Alice Velez RN) 15 mg, Intravenous, USER SPECIFIED (4 ti mes per day), 20 doses, First dose on Mon11/12/19 at 2100, Last dose on Mon11/17/19 at 1500, Do not administer with other NSAIDS, Routine ondansetron ODT (Zofran-ODT) disintegrating tablet 8 m g () 06 (Given - Provider: Masha Justice RN)1449 (Given - Provider: Wanda Killian RN) 8 mg, Oral, EVERY 8 HOURS, 3 doses, Firs t dose on Mon11/12/19 at 2100, Last dose on Mon11/13/19 at 1300, Recovery (Recovery-Hospital Unit), Routine pantoprazole EC (Protonix) tablet 40 mg 0917 (Given - Provider: Michelle Gutierrez, RN) 0944 (Given - Provider: Wanda Frias, BEATA) 0840 ( Given - Provider: Mary Alice Velez, BEATA) 40 mg, Oral, DAILY, First dose on Mon at 1815, Until Discontinued, DO NOT CRUSH OR OPEN, Routine sodium chloride 0.9 % (flush) flush 5 mL 922 (Given - Provider: Michelle Gutierrez, RN)2035 (Given - Provider: Stephy Rowley RN) 09 (Given - Provider: Wanda Frias, BEATA)2041 (Given - Provider: Stephy Rowley RN) 0900 (Not Given - Provider: Mary Alice Velez, BEATA - Reason: Patient/family refused) 5 mL, Intravenous, 2 TIMES DAILY, First dose on Mon11/12/19 at 2100, Until Discontinued, Recovery (Recovery-Hospital Unit), Routine PRN Medication Order 11/13/2019 11/14/2019 11/15/2019 lidocaine (XYLOCAINE) 10 mg/mL (1 %) injection 3 mg 3 mg (0.3 mL), Subcutaneous, ONCE PRN, 1 dose, Starting Mon11/12/19 at 2000, Until Mon11/15/19 at 1311, for discomfort with PIV insertion, Recovery (Recovery-Hospital Unit), Routine phenol 1.4% (CHLORASEPTIC) spray 1 spray 210 (Given - Provider: Stephy Rowley RN) 1 spray, Oral, EVERY 4 HOURS PRN, Starti ng Mon11/15/19 at 0046, Until Mon11/15/19 at 1311, Irritation, Routine sodium chloride 0.9 % (flush) flush 5-20 mL 5-20 mL, Intravenous, EVERY 1 MIN PRN, S tarting Mon11/12/19 at 2000, Until Mon11/15/19 at 1311, flush, Flush pertains to all indwelling lines. Flush per protocol found in the job aid using the link prov ided on this medication record., Recovery (Recovery-Hospital Uni t), Routine traMADoL (Ultram) tablet 50 mg 50 mg, Oral, EVERY 6 HOURS PRN, Starting Tu11/12/19 at 1757, Until Mon11/15/19 at 1311, Pain, May repeat 50 mg in 60 minutes if pain is not relieved. Contraindications with MAO inhibitors. Because of t he potential risk and severity of seroto brielle syndrome or neuroleptic malignant syndrome - Like reactions, caution should be observed when administering selective serotonin reuptake inhibitors (SSRIs) with tramadol., Routine documented in this encounter Care Teams Chicken Sexer Relationship Specialty Start Date End Date Lily Warren APRN PCP - General Family Medicine 11/11/19 06/15/20 documented as of this encounter
--- OUTSIDE RECORDS SUMMARY | 2021-12-08 13:31 | XMS_ITS | Encounter Summary ---
:1985 Author Organization [facility] [place] [address] Care Team Providers Name Role Phone Kelvin Lily SHERMAN Primary Care Provider Reason for Visit Reason Comments Results Encounter Details Date Type Department Care Team Description 02/12/2020 Telephone Hematology and Oncology at [facility] Results [facility] Carlos lozoya Hematology/[place] [address] [place] [address] [phone] (Wo rk) Social History Tobacco Use Types [...] this encounter Miscellaneous Notes Telephone Encounter - David Rodríguez V, [facility] - 02/13/2020 4:15 PM EST This test result was discussed with the patient by phone. A copy of the test results have been scanned in the medical record and sent to Bryan. A summary of the results is provided below. Please be advised that [place] law requires that all health care workers respect the confidentiality of thisinformation and not pass it along to other health care providers, insurance companies, or individuals without the written permission of the patient. The [facility]amil[facility] Cancer [facility] welcomes any questions about these matters. Our phone number is: [phone]. On 01/27/2020, Bryan underwent genetic testing for a hereditary predisposition to cancers in eight major organ systems including breast, gynecologic, gastrointestinal, endocrine, genitourinary, skin, brain/nervous system, sarcoma and hematologic. Following are the results of this test. Result: [facility]Next-Expanded +Built In Panel showed no mutation was detected. This means that Brea not carry a mutation in the genes detectable by this test. The following 77 genes were analyzed: AIP, ALK, APC, JOLENE, AXIN2, BAP1, BARD1, BLM, BMPR1A, BRCA1, BRCA2, BRIP1, CDC73, CDH1, CDK4, CDKN1B, CDKN2A, CHEK2, CTNNA1, DICER1, FANCC, FH, FLCN, GALNT12, KIF1B, LZTR1, MAX, MEN1, MET, MLH1, MSH2, MSH3, MSH6, MUTYH, NBN, NF1, NF2, NTHL1, PALB2, PHOX2B, PMS2, POT1, PMGIC5Z, PTCH1, PTEN, RAD51C, RAD51D, RB1, RECQL, RET, SDHA, SDHAF2, SDHB, SDHC, SDHD, SMAD4,SMARCA4, SMARCB1, SMARCE1, STK11, SUFU, VOYZ514, TP53, TSC1, TSC2, VHL and XRCC2 (sequencing and deletion/duplication); EGFR, EGLN1, HOXB13, KIT, MITF, PDGFRA, POLD1 and POLE (sequencing only); EPCAM and GREM1 (deletion/duplication only). A variant of uncertain significance (VUS) in the BRCA2 gene, specifically [id number] ([id number]), was detected. Interpretation: This test did not identify an underlying genetic cause for the personal/family history of colon or kidney cancer. Possible explanations for this negative test result include: ?? Bryan's cancer and the cancer in his family may be due to non genetic, environmental causes. ?? There could be a mutation in Bryan's family that rByan did not inherit. ?? Bryan's brother could consider genetic counseling due to his history of young-onset kidney cancer. ?? There could be mutations in other cancer genes not included in this test, or in genes yet to be discovered. ?? There is a very small chance that a pathogenic variant/mutation could be missed due to limitations in the testing. Additional genetic testing for Bryan is not recommended at this time. It is unclear at this time whether the BRCA2 VUS identified in Bryan is a cancer-associated mutationor a benign change in the gene with no increased cancer risks. [facility] is continually collecting and analyzing their data, in an effort to reclassify these variants as either cancer-causing mutations or benign changes. It is important to remember that a vast majority of variants of uncertain significance are normal, benign changes in the gene. Per ClinVar, this BRCA2 variant is classified as likely benign by [employer] and as a VUS by [facility] and [facility]. We will be contacted by the laboratory, in the future, if a reclassification is made and we would then notify Bryan. It is important that Bryan's phone number and mailing address stay updated in the [facility] system, in order for us to reach him in the future, should an amended report be issued. Family members should NOT be tested for the variant of uncertain significance identified in Bryan in order to find out their own cancer risks. Screening Recommendations Based on genetic test results and personal and/or family history, we recommend: Colon cancer screening ?? Periodic colonoscopy screening as recommended by Bryan's health evaluator. Skin cancer screening ?? Dermatologic/skin exams, as recommended by Bryan's primary career agent or project consultant. documented in this encounter Plan of Treatment Upcoming Encounters Date Type Specialty Care Team Description 12/15/2021 Hospital Encounter Gastroenterology [facility] [place] [address] 12/15/2021 Surgery Gastroenterology Benjy Tavera COLONOSC Ben PULIDO MD DIAGNOSTIC [facility] [place] [place] [address] Scheduled Procedures Name Priority Associated Diagnoses Date/Time COLONOSCOPY, DIAGNOSTIC 1 year colo 12/16/19 8:30 AM EST documented as of this encounter Visit Diagnoses Not on filedocumented in this encounter Additional Health Concerns Infection Onset Date Last Indicated Resolved Time C. difficile 12/02/2019 12/02/2019 03/01/2020 8:09 PM EST documented as of this encounter Care Teams Voice Instructor Relationship Specialty Start Date End Date Lily Warren APRN PCP - General Family Medicine 11/11/19 06/15/20 documented as of this encounter
--- OUTSIDE RECORDS SUMMARY | 2021-12-08 13:31 | XMS_ITS | Encounter Summary ---
:1985 Author Organization [facility] [place] [address] Care Team Providers Name Role Phone Lily Warren APRN Primary Care Provider Reason for Visit Auth/Cert [...] Expiration Date Visits Requ ested Visits Authorized [id number] 1 1 Encounter Details Date Type Department Care Team Description 11/12/2019 Surgery Main Operating Room Adam Dominique, @ROBOTIC,LAPAROSCOPY,FONTENOT [facility] RGICAL,ENTERECTOMY,[facility] CTION [facility] [address],[place] [address] [place] [address] ANASTOMOSIS [phone] Social History Tobacco Use Types Packs/Day Years [...] Reading Time Taken Comments Blood Pressure 123/75 11/12/2019 10:38 AM EDT Pulse 52 11/12/2019 10:38 AM EDT Temperature 36.3 ??C (97.3 ??F) 11/12/2019 10:38 AM EDT Respiratory Rate 18 11/12/2019 10:38 AM EDT Oxygen Saturation 100% 11/12/2019 10:38 AM EDT Inhaled Oxygen Concentration - - Weight - - Height - - Body Mass Index - - documented in this encounter Discharge Summaries Padmaja [...] Ibuprofen 9pm [] Tramadol or Oxycodone for leonorrough [x] follow-up appointment already scheduled with Ana Lee, or Otis in 5 weeks -call Lacie Mercado [phone] for scheduling assistance -call the General Surgery Clinic nurses [phone] for prior authorizations assistance Only if applicable [...] colorectal surgery: an international consensus using the [place] technique. Dis Colon Rectum. 2012 May;55(4):416-23. Vital [...] 14.8 HCT 41.2 42.5 Recent Labs 11/13/19 03511/12/19 1804 CREATININE 0.97 1.23 No results for [...] this report, please contact the number below. Condition at discharge: Stable Mental Status: awake [...] PM Adam Dominique MD General Surgery [place] [facility] Arrive at: Freight Traffic Consultant Area [phone] Instructions Given to Patient at Discharge: Patient [...] Medication: Tylenol should be used as primary uhlj-iif-wmygxkk pain reliever; 650mg every 6 hours or [...] with information about your appointments. Please call [phone] (clinic number for appointments only) to confirm date and time of your appointments or if you do not receive information about your appointment in a timely manner. For nursing questions, please call . Future Appointments Date Time Provider Department Center 12/16/2019 3:30 PM Adam Dominique MD [facility]G [facility] Call your doctor if: ??? You develop [...] AND HOLIDAYS: ASK FOR THE SURGERY RESIDENT BASIC ACOUSTIC ANALYST IF ANY OF THE ABOVE OCCUR. Divison of Colon and Rectal Surgery ??? [facility] ?[address] ??? [place] [address] ??? [phone] ??? ~~~~~~~~~~~~~~~~~~~~~~~~~~~~~~~~~~~~~~~~~~~~~~~~~~~~~~~~~~~~~~~~~~~ General Instructions None Updated Allergies/ADRs: No Known Allergies Follow-up Recommendations for Providers: None Provider Contact Information: [phone] Primary Susi Physician: Lily Warren APRN [facility] OCCUPATIONAL MEDICINE / [facility] 03* Signed: Padmaja Pierce MD 11/15/19 10:38 [...] Medication: Tylenol should be used as primary qnzf-lml-bwlofhp pain reliever; 650mg every 6 hours or [...] with information about your appointments. Please call [phone] (clinic number for appointments only) to confirm date and time of your appointments or if you do not receive information about your appointment in a timely manner. For nursing questions, please call . Future Appointments Date Time Provider Department Center 12/16/2019 3:30 PM Adam Dominique MD [facility] Call your doctor if: ??? You develop [...] AND HOLIDAYS: ASK FOR THE SURGERY RESIDENT BASIC ACOUSTIC ANALYST IF ANY OF THE ABOVE OCCUR. Divison of Colon and Rectal Surgery ??? [facility] ??? [address] ??? [place] [address] ??? [phone] ??? ~~~~~~~~~~~~~~~~~~~~~~~~~~~~~~~~~~~~~~~~~~~~~~~~~~~~~~~~~~~~~~~~~~~ documented in this encounter Medications at Time of Discharge Medication Sig Dispensed Refills Start Date End Date enoxaparin (LOVENOX) 40 Inject 0.4 mLs 9.6 mL 0 11/16/1912/02/2019 mg/0.4 mL Syringe subcutaneously daily for 24 [...] and POC occult test performed and +. notified and states it is expected finding r/t surgery. DC paperwork given to pt and spouse at bedside. No s/s of distress noted prior to dc. Pt ambulated several laps on unit this am w/ staff as SB assist. Pt dc'd to home at 11:05 am. Karen Ansari RN - 11/15/2019 9:57 AM EDT OFFICE OF CARE MANAGEMENT [employer] Final DISCHARGE NOTE: Discussed Plan for discharge with primary team and pt's family. 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 is here to Drive patient home with family car. [employer] to follow until discharged if any new needs arise. Karen Ansari RNCM Phone [phone] Pager: # [phone] Padmaja Pierce MD - 11/14/2019 3:57 PM [...] < 2 seconds Skin: warm, dry 11/12 700 - 11/13 699 In: 1861 [P.O.:1530; I.V.:331] Out: 2575 [Urine:2575] [...] 12:35 PM EDT OFFICE OF CARE MANAGEMENT All Around Presser Note Sangeeta Osorio RN reviewed record and discussed patient with Care Team. Patient plan of care discussed in multidisciplinary rounds and assessment for continuing care and discharge needs. Diagnosis: Colon Cancer LOS Hospital: 2 days INSURANCE: Payor: [employer] / Plan: [employer] EMP / Product Type: *No Product type* / SECONDARY INSURANCE: N/A DECISION MAKER: Attempt Cardiopulmonary Resuscitation - Inpatient <no information> Patient is not medically ready for discharge today. No discharge needs identified at this time Transportation: will drive patient home via private vehicle when medically ready. Support: [employer] to follow with team and family to assist with discharge needs when patient ready for discharge. Sangeeta Osorio RN Case Management pgr [phone] Edilia Bray - 11/13/2019 2:53 PM EDT Barrel Cutter Encounter Note Patient Name: Bryan Marmolejo : [id number] MR#: [id number] Admit Date: 11/12/2019 9:27 AM Hospital Day [...] dry 11/11 700 - 11/12 699 In: 268 [P.O.:275; I.V.:2407] Out: 1994 [Urine:1975] Labs: Recent Labs 11/13/19 0357 11/12/19 1804 HGB 14.5 14.8 HCT 41.2 42.5 Recent Labs 11/13/19 0357 11/12/19 1804 CREATININE 0.97 1.23 Imaging: Ct Chest Abdomen [...] Dispo: floor Michelle Gutiérrez MD 11/12/2019 P. [phone] Masha Justice RN - 11/12/2019 8:07 PM EDT Patient arrived to room 404A from PACU. He is A&Ox4 VSS on 2L via NC. He reports some discomfortin his back that is relieved with repositioning. [facility]. Oriented patient to room and [...] on and appropriate for patient. Dyan RN 4690) Labs drawn and sent. Dyan RN 1730) Temp low and patient wrapped in warm blankets. Dyan RN 1930) Meets PACU dc criteria. Handoff accepted and transportation requested. Dyan RN Edilia Bray - 11/12/2019 4:00 PM EDT Barrel Cutter Encounter Note Patient Name: Bryan Marmolejo : [id number] MR#: [id number] Admit Date: 11/12/2019 9:27 AM Hospital Day 1 day Narrative: Referral visit with pt's , Ruby, while pt was in surgery. She was appreciative of visit andsupport. Pt and Ruby identify as Alevism. EDILIA BRAY 11/13/2019 documented in this encounter [...] consent has been obtained. Tramaine Gloria PA-C, [facility] Division of Colon and Rectal Surgery [facility] Pager [phone] Baudilio Jacob MD - 11/12/2019 12:45 PM [...] 3.66) performed by Janine Smith MD at [facility] ENDOSCOPY ??? PRO COLONOSCOPY, REMV LESN, SNARE N/A 10/28/2019 COLONOSCOPY, POLYPECTOMY, REMOVAL LESION BY SNARE (WRVU 4.67) performed by Janine Smith MD at [facility] ENDOSCOPY ??? SHOULDER SURGERY Right 2003 [...] 3.66) performed by Janine Smith MD at [facility] ENDOSCOPY ??? PRO COLONOSCOPY, REMV LESN, SNARE N/A 10/28/2019 COLONOSCOPY, POLYPECTOMY, REMOVAL LESION BY SNARE (WRVU 4.67) performed by Janine Smith MD at [facility] ENDOSCOPY ??? SHOULDER SURGERY Right 2004 x6 [...] oral intake well. Denies N/V. 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 Active bowel sounds, BMx1. Voided in the [...] Outcome: Ongoing (Interventions Implemented as Appropriate) 11/14/1994211/14/19 171 Gottlieb Fall Risk History of Falling 0 [...] -- Activity Activity Type activity encouraged;ambulated in caraballo -- Activity Assistance Provided -- assistance, stand-by Assistive Device Utilized -- none Goal: Infection Control Outcome: Ongoing (Interventions Implemented as Appropriate) 11/14/19942 Safety Interventions Isolation Precautions standard precautions maintained Infection Prevention environmental surveillance performed Coping Strategies Supportive Measures active listening utilized;relaxation techniques promoted Goal: Interdisciplinary Rounds/Family Conf Outcome: Ongoing (Interventions Implemented as Appropriate) 11/14/191749 Interdisciplinary Rounds/Family Conf Participants patient;family;physician Problem: Pain, Acute (Adult) Goal: Identify Related Risk Factors and Signs and Symptoms Related risk factors and signs and symptoms are identified upon initiation of Human Response Clinical Practice Guideline (CPG) Outcome: Ongoing (Interventions Implemented as Appropriate) 11/14/191749 Pain, Acute Related Risk Factors (Acute Pain) surgery;procedure/treatment Signs and Symptoms (Acute Pain) sleep pattern alteration;verbalization of pain descriptors Goal: Acceptable Pain Control/Comfort Level Patient will demonstrate the desired outcomes by discharge/transition of care. Outcome: Ongoing (Interventions Implemented as Appropriate) 11/14/191749 Pain, Acute (Adult) Acceptable Pain Control/Comfort Level [...] PVR 221cc. Due to void at 0900. crew caller paged. SBA OOB in the room. Patient [...] OUTCOME EVALUATION: Ongoing Plan of Care - Mcihelle Gutierrez RN - 11/13/2019 5:40 PM EDT [...] Admission order reviewed. Primary Insurance on file: [employer] Secondary Insurance on file: no secondary Primary care provider on file: Lily Kelvin, [employer] [phone] Advance Directive on file and Code Status: <no information>, Attempt Cardiopulmonary Resuscitation - Inpatient Patient???s Functional Status: Independent Living Situation:Home with and 5 year old son [address] [facility] [address] Supports:Family Assessment: Patient with no apparent RNCM/SW needs at this time. No housing, transportation, insurance, resources concerns identified at this time. Supports in place to achieve a safe post-hospital transition. No identified barriers to accessing necessary care and/or follow-up after discharge. Plan: Patient to d/c to home via Family car when medically ready. fundraising director/Supervisor [place] will continue to follow patient???s progress and remain available if situation changes for coordination of care, psychosocial support and/or discharge planning. Karen Ansari RN Pager [phone] Op Note - Adam Dominique MD - 11/12/2019 5:07 PM EDT [facility] Operative Note Patient Name: Bryan Marmolejo : [id number] MR#: [id number] Case Date: 11/12/2019 Surgeon: Surgeon(s) and Role: Panel 1: * Adam Dominique MD - Primary * Tramaine Gloria PA - Physician Quilt Maker * Baudilio Jacob MD - Resident Panel [...] in the left lower quadrant and the events and promotions assistant port was laced laterally in the [...] abdomen was again insufflated to 15mmHg. The events and promotions assistant then sequentially passed the sizing devices [...] Operative Note Patient Name: Bryan Marmolejo : [id number] MR#: [id number] Case Date: 11/12/2019 Surgeon: Surgeon(s) and Role: Panel 1: * Adam Dominique MD - Primary * Tramaine Gloria PA - Physician Quilt Maker * Baudilio Jacob MD - Resident Panel [...] Mendoza MD - 11/12/2019 2:28 PM EDT [facility] Operative Note Patient Name: Bryan Marmolejo : [id number] MR#: [id number] Case Date: 11/12/2019 Surgeon: Surgeon(s) and Role: Panel 1: * Adam Dominique MD - Primary * Tramaine Gloria PA - Physician Quilt Maker * Baudilio Jacob MD - Resident Panel [...] Benjy Tavera MD [facility] [place]STRO[place]ERI [place], [place] [address] 12/15/2021 Surgery Gastroenterology Benjy Tavera COLONOSC Ben PULIDO MD [facility] [address] [place], [place] [address] Scheduled Procedures Name Priority Associated [...] and Hematocrit, blood (11/13/2019 3:57 AM EDT) athologist Signature Hemoglobin 14.5 13.7 - 16.5 [facility] gm/dL [facility] Hematocrit 41.2 40.5 - 48.5 [facility] Specimen Anatomical Collection Method Collection Time Receive d Time (Source) Location / / Volume Laterality Blood specimen 11/13/2019 3:57 AM 020 4:05 (specimen) EDT AM EDT Resulting Agency Comment Spec In Lab Adam Dominique MD HEMATOLOGY ORDERABLES Performing Organization Address City/State/[place] [address] Creatinine (11/13/2019 3:57 AM EDT) athologist Signature Creatinine 0.97 0.80 [facility] mg/dL [facility] Estimated GFR 101 >=60 [facility] mL/min/1.7 [facility] 3 m?? [facility] Comment: The eGFR was calculated using the CKD-EP I equation. As with all creatinine based estimates of kidney function, eGFR values calculated with the CKD-EPI equation are not accurate in patients wi th acute kidney failure, extremes of body mass or the acutely ill. [email or web address]/[facility] eGFR 118 >=60 mL/min/1.73 m?? [facility] Comment: The eGFR was calculated using the CKD-EP I equation. As with all creatinine based estimates of kidney function, eGFR values calculated with the CKD-EPI equation are not accurate in patients wi th acute kidney failure, extremes of body mass or the acutely ill. [email or web address]/[facility] Specimen Anatomical Collection Method Collection Time Receive d Time (Source) Location / / Volume Laterality Blood specimen 11/13/2019 3:57 AM 020 4:05 (specimen) EDT AM EDT Resulting Agency Comment Spec In Lab Adam Dominique MD CHEMISTRY ORDERABLES Performing Organization Address City/[facility]/ZIP [facility] Phon e Number [address] Hemoglobin and Hematocrit, blood (11/12/2019 6:04 PM EDT) athologist Signature Hemoglobin 14.8 13.7 - 16.5 [facility] gm/dL [facility] Hematocrit 42.5 40.5 - 48.5 [facility] Specimen Anatomical Collection Method Collection Time Receive d Time (Source) Location / / Volume Laterality Blood specimen 11/12/2019 6:04 PM 020 6:22 (specimen) EDT PM EDT Resulting Agency Comment Spec In Lab Adam Dominique MD HEMATOLOGY ORDERABLES Performing Organization Address City/[facility]/ZIP Code Phon e Number [address] Creatinine (11/12/2019 6:04 PM EDT) athologist Signature Creatinine 1.23 0.80 - [facility] 1.50 mg/dL [facility] Estimated GFR 76 >=60 [facility] mL/min/1.7 [facility] 3 m?? [facility] Comment: The eGFR was calculated using the CKD-EP I equation. As with all creatinine based estimates of kidney function, eGFR values calculated with the CKD-EPI equation are not accurate in patients wi th acute kidney failure, extremes of body mass or the acutely ill. http://[email or web address]/[facility] eGFR 88 >=60 mL/min/1.73 m?? [facility] Comment: The eGFR was calculated using the CKD-EP I equation. As with all creatinine based estimates of kidney function, eGFR values calculated with the CKD-EPI equation are not accurate in patients wi th acute kidney failure, extremes of body mass or the acutely ill. [email or web address]://[email or web address]/[facility] Specimen Anatomical Collection Method Collection Time Receive d Time (Source) Location / / Volume Laterality Blood specimen 11/12/2019 6:04 PM 020 6:22 (specimen) EDT PM EDT Resulting Agency Comment Spec In Lab Adam Dominique MD CHEMISTRY ORDERABLES Performing Organization Address City/[facility]/ZIP Code Phon e Number [address] Specimen to Pathology (11/12/2019 4:31 PM EDT) Specimen Anatomical Collection Method Collection Time Receive d Time (Source) Location / / Volume Laterality AP Specimen 11/12/2019 4:31 PM 0 4:31 EDT PM EDT Narrative [facility] - 11/12/2019 4:31 PM EDT Specimen requisition ordered. ??Separate Pathology report to follow Adam Dominique MD PATHOLOGY/CYTOLOGY ORDERABLE S Performing Organization Address City/[facility]/ZIP [facility] [place] [address] Specimen to Pathology (11/12/2019 4:30 PM EDT) Specimen Anatomical Collection Method Collection Time Receive d Time (Source) Location / / Volume Laterality AP Specimen 11/12/2019 4:30 PM 0 4:30 EDT PM EDT Narrative [facility] - 11/12/2019 4:30 PM EDT Specimen requisition ordered. ??Separate Pathology report to follow Adam Dominique MD PATHOLOGY/CYTOLOGY ORDERABLE S Performing Organization Address City/State/ZIP Code Phon e Number [place] [address] [facility] [address] Surgical Pathology Report (11/12/2019 3:54 PM EDT) Component Value Ref Test Analysis Performed At [facility] gist Range Method Time Signature Surgical [id number] ? Location: 4WST; 0404; A [facility] Report The signing pathologist has (i) examined [...] PhD, Ila Verified: ??11/25/2019 ?Pathologist Performed at: ??-[facility] Dept. of Pathology, [place], [place] [employer] Specimen Parts: ??Parts A-C Specimen [...] Intact and preserved. Ink Designation: None. Sections/Processing: Blending Coordinator sections in 31 cassettes as follows: ?A1-A2: [...] sectioned and entirely submitted in 1 cassette labe tavon B1. C - Labeled/Fixative: Proximal anastomosis, formalin. Quantity/Size: Single, 1.9 x 1.7 x 1.0 cm. Tissue Description: Harrison-brown rubbery firm tissue with blue suture line. Sections/Processing: Radially sectioned and entirely submitted in 2 cassettes lab rebekah C1-C2. ??RT shivani Specimen (Source) Anatomical Collection Method Collection Time Re ceived Time Location / / Volume Laterality 11/12/2019 3:54 PM EDT Adam Dominique MD PATHOLOGY/CYTOLOGY ORDERABLE S Performing Organization Address City/State/[place] [address] Specimen to Pathology (11/12/2019 3:54 PM EDT) Specimen Anatomical Collection Method Collection Time Receive d Time (Source) Location / / Volume Laterality AP Specimen 11/12/2019 3:54 PM 0 3:54 EDT PM EDT Narrative [facility] - 11/12/2019 3:54 PM EDT Specimen requisition ordered. ??Separate Pathology report to follow Adam Dominique MD PATHOLOGY/CYTOLOGY ORDERABLE S Performing Organization Address City/State/[place] [address] POCT Glucose (11/12/2019 10:48 AM EDT) P athologist Signature POC Glucose 88 65 - 199 [facility] mg/dL [facility] Comment: Supplemental ranges: <140 mg/dL before meals <180 mg/dL all other times of the day Specimen Anatomical Collection Method Collection Time Receive d Time (Source) Location / / Volume Laterality Blood specimen 11/12/2019 10:48 0 (specimen) AM EDT 10:48 AM EDT Adam Dominique MD POINT OF CARE TEST ORDERABLE S Performing Organization Address City/State/[place] [address] documented in this encounter Visit Diagnoses Not on filedocumented in this encounter Admitting Diagnoses Diagnosis Colon [...] Given 11/14/2019 5:17 PM EDT 1,000 mg BUpivacaine (PF) (Marcaine) Given 11/12/2019 3:14 PM EDT 40 mLs 19- Surgical Site 0.5 % (5 mg/mL) injection ONCE PRN, Starting on Mon11/12/19 at 1514, Until Mon11/15/19 at 1311, Intra-Operative (Intra-Procedure), Routine enoxaparin (LOVENOX) injection 40 mg Given 11/15/2019 [...] Given 11/14/2019 2:13 PM EDT 300 mg pantoprazole EC (Protonix) tablet 40 mg [...] Masha Justice RN)1125 (Given - Provider: Michelle Gutierrez, BEATA)1829 (Given - Provider: Michelle Gutierrez, BEATA) 0023 (Given - Provider: Stephy Rowley RN)0532 (Given - Provider: Stephy Rowley RN)1204 (Given - Provider: Wanda Frias RN)1717 (Given - Provider: Wanda Frias, BEATA) 0027 (Given - Provider: Stephy Rowley RN)0633 [...] Discontinued, Routine enoxaparin (LOVENOX) injection 40 mg 4 3 (Given - Provider: Wanda Frias RN) 0840 (Given - Provider: Mary Alice Velez RN) 40 mg, Subcutaneous, EVERY 24 HOURS SCHE DULED, First dose on Leyla 11/14/19 at 0900, Until Discontinued, Please do Lovenox teaching this morning :), Routine gabapentin (Neurontin) capsule 300 mg 0917 (Given - Pr ovider: Michelle Gutierrez RN)1450 (Given - Provider: Wanda Killian RN)2035 (Given - Provider: Stephy Rowley RN) 0943 (Given - Provider: Wanda marshall RN)1413 (Given - Provider: Mary Alice Velez RN)2041 (Given - Provider: Stephy Rowley RN) 0840 (Given - Provider: Mary Alice Velez RN) 300 mg, Oral, 3 TIMES DAILY, First dose on Mon11/12/19 at 2100, Until Discontinued, Routine ketorolac (TORADOL) injection 15 mg (CANCELED) 033 (G iven - Provider: Masha Justice RN)09 (Given - Provider: Michelle Gutierrez RN)160 (Given - Provider: Michelle Gutierrez RN)2116 (Given - Provider: Stephy Rowley RN) 032 (Given - Provider: Stephy Rowley RN)0944 (Given [...] Routine pantoprazole EC (Protonix) tablet 40 mg 916 (Given - Provider: Michelle Gutierrez RN) 0944 (Given - Provider: Wanda Frias RN) 0840 ( Given - Provider: Mary Alice Velez RN) 40 mg, Oral, DAILY, First dose on Mon at 1815, Until Discontinued, DO NOT CRUSH OR OPEN, Routine sodium chloride 0.9 % (flush) flush 5 mL 922 (Given - Provider: Michelle Gutierrez, BEATA)2035 (Given - Provider: Stephy Rowley, RN) 0944 (Given - Provider: Wanda Frias, RN)2041 (Given - Provider: Stephy Rowley, RN) 09 (Not Given - Provider: Mary Alice Velez RN - Reason: Patient/family refused) 5 mL, Intravenous, [...] Routine phenol 1.4% (CHLORASEPTIC) spray 1 spray 021 (Given - Provider: Stephy Rowley RN) 1 [...] mg, Oral, EVERY 6 HOURS PRN, Starting Mon11/12/19 at 1757, Until Mon11/15/19 at 1311, Pain, May repeat 50 mg in 60 minutes if pain is not relieved. Contraindications with MAO inhibitors. Because of t he potential risk and severity of seroto brielle syndrome or neuroleptic malignant syndrome - Like reactions, caution should be observed when administering selective serotonin reuptake inhibitors (SSRIs) with tramadol., Routine documented in this encounter Care Teams Bridal Gown Fitter Relationship Specialty Start Date End Date Lily Warren APRN PCP - General Family Medicine 11/11/19 06/15/20 documented as of this encounter
--- OUTSIDE RECORDS SUMMARY | 2021-12-08 13:31 | XMS_ITS | Encounter Summary ---
:1985 Author Organization [facility] [place] [address] Care Team Providers Name Role Phone Kelvin Lily LANE Primary Care Provider Encounter Details Date Type Department Care Team Description 01/16/2020 Notes Only Hematology and Oncology at Sotero Rogers MD [facility] Carlos lozoya HEMATOLOGY/[place] [address] [place] [address] [phone] (Wo rk) Social History Tobacco Use Types [...] encounter Progress Notes Sotero Luna MD - 01/16/2020 8:04 AM EST I have reviewed the patient's record and given personal and/or family history of cancer he should beseen by genetic counselor. This is scheduled for next week. documented in this encounter Plan of Treatment Upcoming Encounters Date Type Specialty Care Team Description 12/15/2021 Hospital Encounter Gastroenterology Benjy Tavera MD [facility] [address] [place], [place] [address] 12/15/2021 Surgery Gastroenterology Benjy Tavera COLONOSC Ben PULIDO MD DIAGNOSTIC [facility] [address] [place], [place] [address] Scheduled Procedures Name Priority Associated Diagnoses Date/Time COLONOSCOPY, DIAGNOSTIC 1 year colo 12/16/19 8:30 AM EST documented as of this encounter Visit Diagnoses Not on filedocumented in this encounter Additional Health Concerns Infection Onset Date Last Indicated Resolved Time C. difficile 12/02/2019 12/02/2019 03/01/2020 8:09 PM EST documented as of this encounter Care Teams Negative Cleaner Relationship Specialty Start Date End Date Lily Warren APRN PCP - General Family Medicine 11/11/19 06/15/20 documented as of this encounter
--- OUTSIDE RECORDS SUMMARY | 2021-12-08 13:31 | XMS_ITS | Encounter Summary ---
:1985 Author Organization [facility] Address [facility] [address] [place] [address] Care Team Providers Name Role Phone Deb Vallejo MD Primary Care Provider Encounter Details Date Type Department Care Team Description 10/28/[address] [facility] Janine Smith MD COLONOSCOPY, [facility] D rivwilber [facility] POLYPECTOMY, [place] [address] [address] ([facility] [phone] GASTROENTEROLOGY 4.67) [place], [place] [address] Social History Tobacco Use Types [...] Sign Reading Time Taken Comments Blood Pressure 105/68 10/28/2019 3:00 PM EDT Pulse 62 10/28/2019 3:00 PM EDT Temperature 36.2 ??C (97.2 ??F) 10/28/2019 2:10 PM EDT Respiratory Rate 18 10/28/2019 2:10 PM EDT Oxygen Saturation 98% 10/28/2019 3:00 PM EDT Inhaled Oxygen Concentration - - [...] Smith MD - 10/28/2019 4:[address] [facility] Operative Note Patient Name: Bryan Marmolejo : [id number] MR#: [id number] Case Date: 10/28/2019 Surgeon: Surgeon(s) and Role: [...] 12/15/2021 Hospital Encounter Gastroenterology Benjy Tavera MD [facility] GASTROENTERJERI [place], [place] [address] 12/15/2021 Surgery Gastroenterology Benjy aTvera COLONOSC Ben PULIDO MD DIAGNOSTIC [facility] DR [address] [place] [place], [place] [address] Scheduled Procedures Name Priority Associated [...] PM 0 4:05 EDT PM EDT Narrative [facility] - 10/28/2019 4:05 PM EDT Specimen requisition ordered. ??Separate Pathology report to follow Janine Smith MD PATHOLOGY/CYTOLOGY ORDERABLE S Performing Organization Address City/State/[place] [address] Specimen to Pathology (10/28/2019 4:05 PM EDT) Specimen Anatomical Collection Method Collection Time Receive d Time (Source) Location / / Volume Laterality AP Specimen 10/28/2019 4:05 PM 0 4:05 EDT PM EDT Narrative [facility] - 10/28/2019 4:05 PM EDT Specimen requisition ordered. ??Separate Pathology report to follow Janine Smith MD PATHOLOGY/CYTOLOGY ORDERABLE S Performing Organization Address City/State/[place] [address] Specimen to Pathology (10/28/2019 4:05 PM EDT) Specimen Anatomical Collection Method Collection Time Receive d Time (Source) Location / / Volume Laterality AP Specimen 10/28/2019 4:05 PM 0 4:05 EDT PM EDT Narrative [facility] - 10/28/2019 4:05 PM EDT Specimen requisition ordered. ??Separate Pathology report to follow Janine Smith MD PATHOLOGY/CYTOLOGY ORDERABLE S Performing Organization Address City/[facility]/[place] [address] Specimen to Pathology (10/28/2019 4:05 PM EDT) Specimen Anatomical Collection Method Collection Time Receive d Time (Source) Location / / Volume Laterality AP Specimen 10/28/2019 4:05 PM 0 4:05 EDT PM EDT Narrative [facility] - 10/28/2019 4:05 PM EDT Specimen requisition ordered. ??Separate Pathology report to follow Janine Smith MD PATHOLOGY/CYTOLOGY ORDERABLE S Performing Organization Address City/[facility]/[place] [address] Surgical Pathology Report (10/28/2019 3:04 PM EDT) Component Value Ref Test Analysis Performed At [facility] Range Method Time Signature Surgical [id number] ? Location: 4T; EA10; A [facility] Report The signing pathologist has (i) [...] PhD, Ila Verified: ??11/05/2019 ?Pathologist Performed at: ??-[facility] Dept. of Pathology, [place], [place] DISCUSSION D - Immunohistochemistry for D2-40 and an elastin spec ial stain did not show lymphovascular invasion. ADDITIONAL STUDIES Immunohistochemistry Studies: These IHC studies provide e pathologist with adjunctive diagnostic information. Antibody specificity [...] The assay was performed according to the cork insulation setter's instructions using anti-MLH -1 (ES05), anti-MSH-2 ([id number]), anti-MSH-6 (44), and anti-PMS-2 (MRQ-28) antibodies. Special [...] Organization Address City/State/[place] [address] COLONOSCOPY (10/28/2019 2:29 PM EDT) [facility] gist Method Time Signature COLONOSCOPY [facility] PROVATION Endoscopy Procedure Date: 10/28/2019 2:29 PM ? Patient Name: Bryan Marmolejo ? Date of : 1985 ? Age: 34 ? Order #: [id number] ? Instrument Name: [id number] ? Procedure: ? Colonoscopy Indications: ? Rectal bleeding Providers: ? Janine Smith, Sonali Roblero , ? Benjy Mejia, David Verde MD: ?Deb Y. Sayess Medicines: ? Fentanyl 250 micrograms IV, Midazo howe ? 5 mg IV Complications: ? No immediate complications. Procedure: ? Pre-Anesthesia Assessment: ? - [place] Protocol: ? - Pre-procedure Verification: Prior ? [...] the physician, robert merino nurse, ? the digital retoucher and the techn ician in ? the [...] Procedure Code(s): ?? --- Professional --- ? 92212, Colonoscopy, flexible; with ? removal of tumor(s), polyp(s) , or ? other lesion(s) by snare tech nique Diagnosis Code(s): ?? --- Professional --- ? K63.5, Polyp of colon ? K62.5, Hemorrhage of anus and rectum ? K62.1, Rectal polyp ? --- Technical --- ? K63.5, Polyp of colon ? K62.5, Hemorrhage of anus and rectum ? K62.1, Rectal polyp CPT copyright 2019 [employer]. All rights reserved. The codes documented in this report are preliminary and upon coal hiker review may be revised to meet current [...] MAR Action Action Date Dose Rate Site EPINEPHrine injection solution Given 10/28/2019 3:40 PM EDT 2.5 mg ONCE PRN, Starting on Mon10/28/19 at 1540, Until Mon10/28/19 at 1852, Intra-Operative (Intra-Procedure), Routine fentaNYL 50 mcg/mL multi-dose injection Given 10/28/2019 3:07 PM EDT 50 mcg ONCE PRN, Starting on Mon10/28/19 at 1447, Until Mon10/28/19 at 1852, Intra-Operative (Intra-Procedure), Routine Given 10/28/2019 3:02 PM EDT 25 mcg Given 10/28/2019 2:57 PM EDT 25 mcg lactated ringers infusion New Bag 10/28/2019 2:20 PM EDT 100 mL/hr 100 mL/hr 100 mL/hr, Intravenous, CONTINUOUS, Starting on Mon10/28/19 at 1430, Until Mon10/28/19 at 1647, Endoscopy (Day of Procedure) midazolam (PF) (VERSED) multi-dose injec tion Given 10/28/2019 3:06 PM EDT 1 mg ONCE PRN, Starting on Mon10/28/19 at 1447, Until Mon10/28/19 at 1852, Intra-Operative (Intra-Procedure), Routine Given 10/28/2019 3:02 PM EDT 0.5 mg Given 10/28/2019 2:57 PM EDT 0.5 mg documented in this encounter Active and [...] - Provider: Sonali Roblero RN - Comment: [phone]) ONCE PRN, Starting Mon10/28/19 at 1540, Until Mon10/28/19 at 1852, Intra- Operative (Intra-Procedure), Routine fentaNYL [...] RN) documented in this encounter Care Teams Rodding Machine Tender Relationship Specialty Start Date End Date Deb Vallejo MD PCP - General Family Medicine 09/13/19 11/10/[address] [facility] [address] [place] [address] documented as of this encounter
--- OUTSIDE RECORDS SUMMARY | 2021-12-08 13:32 | XMS_ITS | Encounter Summary ---
:1985 Author Organization [facility] [address] Care Team Providers Name Role Phone Loreta Bueno MD Primary Care Provider Reason for Visit Reason Comments Sinusitis Encounter Details Date Type Department Care Team Description 01/31/2015 Emergency Emergency Department Rc Steele, Acute recurrent [facility] Iza PLUNKETT pansinusitis [facility] [place] [address] [place] [address] [phone] (Wo rk) Social History Tobacco Use Types [...] Sign Reading Time Taken Comments Blood Pressure 124/70 01/31/2015 11:12 AM EST Pulse 58 01/31/2015 11:12 AM EST Temperature 36.7 ??C (98.1 ??F) 01/31/2015 11:12 AM EST Respiratory Rate 18 01/31/2015 11:12 AM EST Oxygen Saturation 98% 01/31/2015 11:12 AM EST Inhaled Oxygen Concentration - - Weight - - Height - - Body Mass Index - - documented in this encounter Discharge Instructions AttachmentsThe following attachments cannot be sent through Care Everywhere. SINUS RINSE (CANADIAN)SINUSITIS (CANADIAN)documented in this encounter Medications at Time of Discharge Medication Sig Dispensed Refills Start Date End Date oxymetazoline (AFRIN) 0.05 2 sprays by Nasal 15 mL 0 02/03/2015 % [place], Non-Aerosol route 2 times daily for 3 days. azithromycin (ZITHROMAX) Take 2 tablets on 6 tablet 0 01/0707/06/2019 250 mg Tablet the first day, then 1 tablet each day for the next 4 days guaiFENesin 600 mg Tablet Take 1 tablet by 30 tablet 0 01/0707/06/2019 Extended Release 12hr mouth 2 times daily as needed for Congestion. documented as of this encounter ED Notes Pedro Luis RN - 01/31/2015 12:48 PM EST Pt released with instructions. Marsha Gonzáles MD - 01/31/2015 12:31 PM EST Bryan Marmolejo [id number] HPI Bryan Marmolejo is a 29 y.o. male who presents to the Emergency Department with complaints of sinusitis. He recently had sinusitis at the end of November and was given a Z-Jl for that. He was feeling well until about 6 days ago when he developed rhinorrhea, postnasal drip, mucous production in the morning. He denies any fevers, shortness of breath, productive cough. Denies any lymphadenopathy. Endorses sinus pressure. Review of Systems: Review of Systems Constitutional: Negative for fever and chills. HENT: Positive for congestion, rhinorrhea, sinus pressure and sore throat. Negative for ear discharge, trouble swallowing and voice change. Eyes: Negative for visual disturbance. Respiratory: Negative for shortness of breath. Cardiovascular: Negative for chest pain. Gastrointestinal: Negative for nausea and vomiting. Musculoskeletal: Negative for neck pain. Skin: Negative for rash. Neurological: Negative for light-headedness. Hematological: Negative for adenopathy. Patient Vitals for the past 24 hrs: BP Temp Pulse Resp SpO2 01/31/15 1112 124/70 mmHg 36.7 ??C (98.1 ??F) 58 18 98 % Physical Exam: Physical Exam Constitutional: He is oriented to person, place, and time. He appears well- developed. No distress. HENT: Head: Normocephalic. Mouth/Throat: No oropharyngeal exudate. Cobblestoning in posterior oropharynx. Moist oropharynx. No exudate. Nontender to palpation of frontal and maxillary sinuses. Uvula midline. Eyes: Pupils are equal, round, and reactive to light. Neck: Normal range of motion. Neck supple. Mild anterior cervical lymphadenopathy Cardiovascular: Normal rate and regular rhythm. No murmur heard. Pulmonary/Chest: Effort normal and breath sounds normal. No stridor. No respiratory distress. He hasno wheezes. He has no rales. Lymphadenopathy: He has cervical adenopathy. Neurological: He is alert and oriented to person, place, and time. Skin: Skin is warm. No rash noted. He is not diaphoretic. No pallor. Psychiatric: He has a normal mood and affect. His behavior is normal. Thought content normal. Nursing note and vitals reviewed. ED Course: - Patient was evaluated and discussed with Dr. Rondon - Medications, allergies and past medical history reviewed MDM: No tonsillar exudate, no rash and strep thought unlikely. Uvula midline so PRICE ACCURACY SUPERVISOR thought unlikely. Without productive cough pneumonia considered but thought unlikely. Bacterial infection considered;however with less than 14 days of symptoms more likely viral. Assessment and Plan: Assessment: 29 y.o. male with sinusitis. Discussed with patient after 6 days likely viral; however patient leaving town for a few weeks. Given a rx for a z- pack. If symptoms don't improve in 1 week instructed to fill rx. Plan: - watch and wait z-pack rx given - mucinex - Afrin. Discussed with patient should not take more than 72 hours in a row secondary to rebound - Follow up with PCP prn - Return precautions Marsha Gonzáles MD Resident 02/01/15 194 Associated attestation - Rc Steele MD - 02/02/2015 8:52 PM EST I have personally seen and examined the patient. I reviewed the patient with Dr. Gonzáles and agree withthe greene findings and plan. documented in this encounter Miscellaneous Notes ED Triage - Pedro Luis RN - 01/31/2015 11:12 AM EST Pt comes in with cold symptoms that he has had since 01/26/2015. He now has sinus pressure with a lot of post nasal sinus drainage. Pt is awake, alert and oriented x 3. Skin color is pink warm and dry. documented in this encounter Plan of Treatment Upcoming Encounters Date Type Specialty Care Team Description 12/15/2021 Hospital Encounter Gastroenterology Benjy Tavera MD [facility] GASTROENTERJERI [place], [place] [address] 12/15/2021 Surgery Gastroenterology Benjy Tavera COLONOSC Ben PULIDO MD DIAGNOSTIC [facility] GASTROENTER[facility]ERI [place], [place] [address] Scheduled Procedures Name Priority Associated Diagnoses Date/Time COLONOSCOPY, DIAGNOSTIC 1 year colo 12/16/19 8:30 AM EST documented as of this encounter Visit Diagnoses Diagnosis Acute recurrent pansinusitis Other acute sinusitis documented in this encounter Care Teams Zone Maintenance Technician Relationship Specialty Start Date End Date Loreta Bueno MD PCP - General Family Medicine 12/18/14 07/18/17 [facility] [place] [address] documented as of this encounter
--- OUTSIDE RECORDS SUMMARY | 2021-12-08 13:32 | XMS_ITS | Encounter Summary ---
:1985 [place] [address] Care Team Providers Name Role Phone None Primary Care Provider Unavailable Reason for Visit Reason Comments URI Encounter Details Date Type Department Care Team Description 12/06/2014 Emergency Emergency Department Monalisa Cheung MD Acute URI [facility] [place] [address] [place] [address] [phone] (Wo rk) Social History Tobacco Use Types Packs/Day Years Used Date Never Assessed Physical Activity Answer Date Recorded On average, [...] Sign Reading Time Taken Comments Blood Pressure 129/83 12/06/2014 12:17 PM EDT Pulse 67 12/06/2014 12:17 PM EDT Temperature 36.5 ??C (97.7 ??F) 12/06/2014 12:17 PM EDT Respiratory Rate 14 12/06/2014 12:17 PM EDT Oxygen Saturation 100% 12/06/2014 12:17 PM EDT Inhaled Oxygen Concentration - - Weight 79.4 kg (175 lb) 12/06/2014 12:17 PM EDT Height - - Body Mass Index - - documented in this encounter Discharge Instructions Discharge InstructionsMonalisa Monroe MD - 12/06/2014 12:55 PM EDT Images from the original note were not included. [facility] Upper Respiratory Infection (Cold): After Your Visit Your Care Instructions An upper respiratory infection, or URI, is an infection of the nose, sinuses, or throat. URIs are spread by coughs, sneezes, and direct contact. The common cold is the most frequent kind of URI. The flu and sinus infections are other kinds of URIs. Almost all URIs are caused by viruses. Antibiotics won't cure them. But you can treat most infections with home care. This may include drinking lots of fluids and taking xjsb-zxy-hlvwbfy pain medicine.You will probably feel better in 4 to 10 days. The doctor has checked you carefully, but problems can develop later. If you notice any problems or new symptoms, get medical treatment right away. Follow-up care is a greene part of your treatment and safety. Be sure to make and go to all appointments, and call your doctor if you are having problems. It's also a good idea to know your test results and keep a list of the medicines you take. How can you care for yourself at home? ?? To prevent dehydration, drink plenty of fluids, enough so that your urine is light yellow or clear like water. Choose water and other caffeine-free clear liquids until you feel better. If you have kidney, heart, or liver disease and have to limit fluids, talk with your doctor before you increase the amount of fluids you drink. ?? Take an tamq-azm-cxweqcp pain medicine, such as acetaminophen (Tylenol), ibuprofen (Advil, Motrin), or naproxen (Aleve). Read and follow all instructions on the label. ?? If your doctor prescribed antibiotics, take them as directed. Do not stop taking them just because you feel better. You need to take the full course of antibiotics. ?? Before you use cough and cold medicines, check the label. These medicines may not be safe for young children or for people with certain health problems. ?? Be careful when taking nvml-iup-ratjkrg cold or flu medicines and Tylenol at the same time. Many of these medicines have acetaminophen, which is Tylenol. Read the labels to make sure that you are not taking more than the recommended dose. Too much acetaminophen (Tylenol) can be harmful. ?? Get plenty of rest. ?? Do not smoke or allow others to smoke around you. If you need help quitting, talk to your doctor about stop-smoking programs and medicines. These can increase your chances of quitting for good. When should you call for help? Call 911 anytime you think you may need emergency care. For example, call if: ?? You have severe trouble breathing. Call your doctor now or seek immediate medical care if: ?? You seem to be getting much sicker. ?? You have new or worse trouble breathing. ?? You have a new or higher fever. ?? You have a new rash. Watch closely for changes in your health, and be sure to contact your doctor if: ?? You have a new symptom, such as a sore throat, an earache, or sinus pain. ?? You cough more deeply or more often, especially if you notice more mucus or a change in the colorof your mucus. ?? You do not get better as expected. Where can you learn more? Visit our health information library at [email or web address] You can also view health information on [employer], your personal patient account. Log in or sign up today. Enter K520 in the search box to learn more about Upper Respiratory Infection (Cold): After Your Visit. ?? [id number] [employer]. Care instructions adapted under license by [facility]. This care instruction is for use with your licensed healthcare professional. If you have questionsabout a medical condition or this instruction, always ask your healthcare professional. [employer] disclaims any warranty or liability for your use of this information. Content Version: 10.4.020763; Current as of: October 15, 2013 documented in this encounter Medications at Time of Discharge Medication Sig Dispensed Refills Start Date End Date azithromycin (ZITHROMAX) Take 2 tablets on 6 tablet 0 11/0812/22/2014 250 mg Tablet the first day, then 1 tablet each day for the next 4 days documented as of this encounter ED Notes Monalisa Monroe MD - 12/06/2014 1:01 PM EDT Chief Complaint Patient presents with ??? URI I saw this patient at 1250. HPI 29 yr bony without significant past medical history presents to the emergency department for evaluation of 2 weeks of progressive cough, postnasal drip, and URI type symptoms. He also has had a headachetoday. He thinks he had a fever earlier but that has since resolved, but his symptoms have relapsed.Multiple family members have been ill. No nausea or vomiting. No change in bowel or bladder function. Given worsening symptoms, he and his spouse came to the Emergency Department for evaluation. Allergies Allergen Reactions ??? Morphine Review of Systems Constitutional: Positive for fever and chills. Negative for activity change. HENT: Positive for postnasal drip. Respiratory: Positive for cough and chest tightness. Negative for shortness of breath. Cardiovascular: Negative for chest pain. Gastrointestinal: Negative for nausea, vomiting and abdominal pain. Genitourinary: Negative. Neurological: Positive for headaches. Physical Exam Constitutional: He is oriented to person, place, and time. He appears well- developed and well-nourished. HENT: Head: Normocephalic and atraumatic. Mouth/Throat: Oropharynx is clear and moist. Eyes: Conjunctivae and EOM are normal. Pupils are equal, round, and reactive to light. Neck: Normal range of motion. Neck supple. Cardiovascular: Normal rate, regular rhythm, normal heart sounds and intact distal pulses. Pulmonary/Chest: Effort normal and breath sounds normal. Abdominal: Soft. He exhibits no distension. There is no tenderness. Musculoskeletal: Normal range of motion. Neurological: He is alert and oriented to person, place, and time. No cranial nerve deficit. He exhibits normal muscle tone. Coordination normal. Skin: Skin is warm and dry. Psychiatric: He has a normal mood and affect. His behavior is normal. Judgment and thought content normal. Nursing note and vitals reviewed. Procedures MDM ED Course: 29-year-old male with worsening URI type symptoms. Given duration of symptoms, multiple family members with similar symptoms and worsening course, will give Z-pack. Monalisa Monroe MD 12/06/14 1306 documented in this encounter Miscellaneous Notes ED Triage - Roz Antony RN - 12/06/2014 12:18 PM EDT Pt c/o URI symptoms for past 2 weeks. Denies fever. Reports productive cough. Skin pwd. Resps equal and non labored. Pt did not receive flu vaccine. documented in this encounter Plan of Treatment Upcoming Encounters Date Type Specialty Care Team Description 12/15/2021 Hospital Encounter Gastroenterology Benjy Tavera MD [facility] GASTROENTERJERI [place] [address] 12/15/2021 Surgery Gastroenterology Benjy Tavera W, MD [facility] DR GASTROENTEROLOGY [place], [place] [address] Scheduled Procedures Name Priority Associated Diagnoses Date/Time COLONOSCOPY, DIAGNOSTIC 1 year colo 12/16/19 22 8:30 AM EST documented as of this encounter Visit Diagnoses Diagnosis Acute URI Acute upper respiratory infections of un specified site documented in this encounter Care Teams Ror Engineer Relationship Specialty Start Date End Date None PCP - General 12/06/14 12/17/14 None documented as of this encounter
--- OUTSIDE RECORDS SUMMARY | 2021-12-08 13:32 | XMS_ITS | Encounter Summary ---
:1985 Author Organization [facility] [place] [address] Care Team Providers Name Role Phone Florinda Bueno MD Primary Care Provider Reason for Visit Reason Comments Establish Care Encounter Details Date Type Department Care Team Description 12/22/2014 Office Visit [facility] Well [facility] Well Florinda Bueno Rou tine general medical examination at a health care facility; Primary Care at Internal hemorrhoid [facility] (formerly [facility]3] [address] [place]CC[place]ATIONAL [id number] MEDICINE [phone] [place], [place] [address] Social History Tobacco Use Types [...] Sign Reading Time Taken Comments Blood Pressure 108/66 12/22/2014 1:57 PM EST Pulse 76 12/22/2014 1:57 PM EST Temperature - - Respiratory Rate - - Oxygen Saturation - - Inhaled Oxygen Concentration - - Weight 78.9 kg (174 lb) 12/22/2014 1:57 PM EST Height 180.3 cm (5' 11) 12/22/2014 1:57 PM EST Body Mass Index 24.27 12/22/2014 1:57 PM EST documented in this encounter Patient Instructions Patient InstructionsFlorinda Bueno MD - 12/22/2014 2:35 PM EST Images from the original note were not included. [facility] Hemorrhoids: After Your Visit Your Care Instructions Hemorrhoids are enlarged veins that develop in the anal canal. Bleeding during bowel movements, itching, swelling, and rectal pain are the most common symptoms. They can be uncomfortable at times, but hemorrhoids rarely are a serious problem. You can treat most hemorrhoids with simple changes to your diet and bowel habits. These changes include eating more fiber and not straining to pass stools. Most hemorrhoids do not need surgery or othertreatment unless they are very large and painful or bleed a lot. Follow-up care is a greene part of your treatment and safety. Be sure to make and go to all appointments, and call your doctor if you are having problems. It???s also a good idea to know your test resultsand keep a list of the medicines you take. How can you care for yourself at home? ?? Sit in a few inches of warm water (sitz bath) 3 times a day and after bowel movements. The warm water helps with pain and itching. ?? Put ice on your anal area several times a day for 10 minutes at a time. Put a thin cloth between the ice and your skin. Follow this by placing a warm, wet towel on the area for another 10 to 20 minutes. ?? Take pain medicines exactly as directed. ?? If the doctor gave you a prescription medicine for pain, take it as prescribed. ?? If you are not taking a prescription pain medicine, ask your doctor if you can take an exys-kep-lborjhs medicine. ?? Keep the anal area clean, but be gentle. Use water and a fragrance-free soap, such as Ivory, or use baby wipes or medicated pads, such as Tucks. ?? Wear cotton underwear and loose clothing to decrease moisture in the anal area. ?? Eat more fiber. Include foods such as whole-grain breads and cereals, raw vegetables, raw and dried fruits, and beans. ?? Drink plenty of fluids, enough so that your urine is light yellow or clear like water. If you have kidney, heart, or liver disease and have to limit fluids, talk with your doctor before you increasethe amount of fluids you drink. ?? Use a stool softener that contains bran or psyllium. You can save money by buying bran or psyllium (available in bulk at most health food stores) and sprinkling it on foods or stirring it into fruitjuice. Or you can use a product such as Metamucil or Hydrocil. ?? Practice healthy bowel habits. ?? Go to the bathroom as soon as you have the urge. ?? Avoid straining to pass stools. Relax and give yourself time to let things happen naturally. ?? Do not hold your breath while passing stools. ?? Do not read while sitting on the toilet. Get off the toilet as soon as you have finished. ?? Take your medicines exactly as prescribed. Call your doctor if you think you are having a problemwith your medicine. When should you call for help? Call 911 anytime you think you may need emergency care. For example, call if: ?? You pass maroon or very bloody stools. Call your doctor now or seek immediate medical care if: ?? You have increased pain. ?? You have increased bleeding. Watch closely for changes in your health, and be sure to contact your doctor if: ?? Your symptoms have not improved after 3 or 4 days. Where can you learn more? Visit our health information library at [email or web address] You can also view health information on [employer], your personal patient account. Log in or sign up today. Enter F228 in the search box to learn more about Hemorrhoids: After Your Visit. ?? [phone] [employer]. Care instructions adapted under license by [facility]. This care instruction is for use with your licensed healthcare professional. If you have questionsabout a medical condition or this instruction, always ask your healthcare professional. [employer] disclaims any warranty or liability for your use of this information. Content Version: 10.4.242471; Current as of: December 20, 2013 documented in this encounter Progress Notes Florinda Bueno MD - 12/22/2014 2:14 PM EST Chief Complaint Patient presents with ??? Establish Care Subjective Bryan Marmolejo is a 29 y.o. male in today to establish care and for annual physical. Concerns for today: He has red blood in stools every couple weeks No abdominal pain, reflux, constipation 7yrs ago had stomach ulcer diagnosed after vomiting blood He drinks infrequently- about 2 drinks per month. No regular NSAID use, occasional tylenol or ibuprofen for shoulder pain. 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 History reviewed. No pertinent family history. History Social History ??? Marital Status: Single Spouse Name: N/A Number of Children: N/A ??? Years of Education: N/A Social History Main Topics ??? Smoking status: Never Smoker ??? Smokeless tobacco: Never Used ??? Alcohol Use: Yes Comment: couple drinks per month ??? Drug Use: No ??? Sexual Activity: Partners: Female Control/ Protection: OCP Other Topics Concern ??? Do You Live Alone? No Social History Narrative No current outpatient prescriptions on file. No current facility-administered medications for this visit. Allergies Allergen Reactions ??? Morphine Review of Systems: Review of Systems -Male under 50 12/22/2014 Constitutional None of the above Ear / nose / throat / mouth Sore throat Eyes None of the above Respiratory None of the above Cardiovascular None of the above Gastrointestinal Other stomach, intestine, or bowel symptoms Skin, hair None of the above Musculoskeletal None of the above Neurological None of the above Hematologic / Lymphatic None of the above Objective Filed Vitals: 12/22/14 1357 BP: 108/66 Pulse: 76 General appearance - alert, well appearing, and in no distress Mental Status - normal mood, behavior, speech, dress, motor activity, and thought processes Eyes - pupils equal and reactive, extraocular eye movements intact Ears - bilateral TM's and external ear canals normal Nose - no discharge Throat - mucous membranes moist, pharynx normal without lesions Neck - supple, no significant adenopathy Thyroid - thyroid is normal in size without nodules or tenderness Chest - clear to auscultation, no wheezes, rales or rhonchi, symmetric air entry Heart - normal rate, regular rhythm, normal S1, S2, no murmurs, rubs, clicks or gallops Abdomen - soft, nontender, nondistended, no masses or organomegaly Rectal - normal rectal tone, brown stool in vault, internal hemorrhoids seen on anoscopy Extremities - peripheral pulses normal, no pedal edema, no clubbing or cyanosis Skin - normal coloration and turgor, no rashes, no suspicious skin lesions noted Assessment 1. Routine general medical examination at a health care facility - Flu vaccine greater than or equal to 3yo preservative free Encouraged daily sunscreen use Continue regular exercise 2. Internal hemorrhoid Increase fiber and fluid intake Use stool softener if needed Return in about 1 year (around 12/23/2015) for physical. or as needed FLORINDA BUENO MD Ana Saeed CMA - 12/22/2014 2:01 PM EST Pt here today to establish care. Pt states that he has some GI issues. Pt states that he has blood in his stool every now and again. Not very often. 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 Pt states that about 8 years ago he vomited some blood and he was hospitalized and had a scope procedure with a stomach ulcer dx. documented in this encounter Plan of Treatment Upcoming Encounters Date Type Specialty Care Team Description 12/15/2021 Hospital Encounter Gastroenterology Benjy Tavera MD [facility] GASTROENTEROLOGY [place], [place] [address] 12/15/2021 Surgery Gastroenterology Benjy Tavera COLONOSC Ben PULIDO MD DIAGNOSTIC [facility] GASTROENTERJERI [place], [place] [address] Scheduled Procedures Name Priority Associated Diagnoses Date/Time COLONOSCOPY, DIAGNOSTIC 1 year colo 12/16/19 22 8:30 AM EST documented as of this encounter Visit Diagnoses Diagnosis Routine general medical examination at a health care facility Internal hemorrhoid Internal hemorrhoids without mention of complication documented in this encounter Care Teams Production Planning Supervisor Relationship Specialty Start Date End Date Florinda Bueno MD PCP - General Family Medicine 12/18/14 07/18/17 [facility] [place] [address] documented as of this encounter
== END ==
DX: R04.2 Hemoptysis (principal)
CPT/HCPCS: 71046

== ENCOUNTER 2022-02-01 03:40 | Outpatient (CLI) | payer OTHER, SELFPAY ==
[2022-02-08 11:52] LABS: Kit/Specimen SENT
== END 2022-02-01 03:41 | disposition home or self-care (01) ==
LOC: LBO 03:40
PROVIDERS: Visit Provider Obstetrics & Gynecology Maternal & Fetal Medicine
DX: Z82.79 Family history of other congenital malformations, deformations and chromosomal abnormalities (principal); Z31.440 Encounter of male for testing for genetic disease carrier status for procreative management
CPT/HCPCS: 36415

== ENCOUNTER 2023-01-02 05:59 | Emergency (ER) | payer OTHER, SELFPAY ==
[2023-01-02 06:04] VITALS: BP 151/102; PULSE 106; RESP 18; O2SAT 100
[2023-01-02 06:09] VITALS: RESP 18
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
[2023-01-02 07:05] VITALS: PULSE 72; RESP 18; O2SAT 97
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
== END 2023-01-02 07:07 | disposition home or self-care (01) ==
LOC: ER 11:16
PROVIDERS: Emergency Provider Emergency Medicine
DX: R07.9 Chest pain, unspecified (principal); S20.212A Contusion of left front wall of thorax, initial encounter; S50.11XA Contusion of right forearm, initial encounter; S70.11XA Contusion of right thigh, initial encounter; Y08.89XA Assault by other specified means, initial encounter
CPT/HCPCS: 99283; 71046; 71110

== ENCOUNTER 2024-05-20 14:13 | Emergency (ER) | payer BC, SELFPAY ==
[2024-05-20 14:18] VITALS: BP 124/86; PULSE 110; RESP 20; TEMP 37.4; O2SAT 95
[2024-05-20 14:20] VITALS: BP 124/86; PULSE 110; RESP 20; TEMP 37.4; O2SAT 95
[2024-05-20] MEDS: Ondansetron O.D.T. 4 MG TABEF 8 MG PO (15:08)
[2024-05-20] MEDS: Acetaminophen 500 MG TAB 1000 MG PO (15:55)
--- NOTE | 2024-05-20 16:13 | ED.GENADUL_ITS ---
Discharge Plan Disposition Patient Disposition: Home Condition: Stable Discharge Details Clinical Impression: Fever, Nausea vomiting and diarrhea Primary Care Provider: Unknown,Unknown ED Provider: Ethan Steel Home Meds and New Rx's Prescriptions: New ondansetron 4 mg tablet,disintegrating 4 mg PO Q6H PRN (Reason: nausea and vomiting) Qty: 30 0RF No Action ibuprofen 800 MG tablet 800 mg PO DIRECTED Discharge Instructions Instructions: Nausea and Vomiting, Adult ED Additional Instructions: Continue Zofran as needed for any nausea or vomiting. Please try to drink as much liquids as you can like Gatorade or Pedialyte. Advance your diet slowly as tolerated. Continue Motrin or Tylenol for body aches and fever. Return to the emergency department with severe worsening of symptoms or inability to tolerate anything by mouth. Discharge Data Discharge Date/Time-TO BE ENTERED AT DEPARTURE: 05/20/24 16:54 HPI General Date/Time Provider Initiated Documentation: 05/20/24 14:32 . Limitations to Documentation: no limitations . Information obtained by: patient . HPI Narrative: 38-year-old gentleman with past medical history of colon cancer status post partial colectomy presents for evaluation of 1 day of vomiting and diarrhea. He reports symptoms started last night around 8 PM. He had several hours of vomiting. He reports that he has not had any vomiting since 3 AM. He reports that he has been having some diarrhea, no significant abdominal pain. Symptoms have been associated with fever he has not tried any medication for relief of fever. He reports that over the last few days, both of his children have also had febrile illnesses, but no vomiting or diarrhea. Related Data Home Medications ?Medication ?Instructions ?Recorded ?Confirmed ibuprofen 800 mg tablet 800 mg PO DIRECTED 08/12/13 05/20/24 ondansetron 4 mg disintegrating 4 mg PO Q6H PRN nausea and 05/20/24 tablet vomiting #30 tabs Previous Rx's ?Medication ?Instructions ?Recorded ondansetron 4 mg disintegrating 4 mg PO Q6H PRN nausea and 05/20/24 tablet vomiting #30 tabs Allergies Allergy/AdvReac Type Severity Reaction Status Date / Time morphine Allergy Mild Skin Rash Unverified 05/20/24 14:21 General Stated Complaint: Abd Prob ANTHONY: 3 Exam Narrative Exam Narrative: Review of Systems: All systems reviewed & are unremarkable except as noted in HPI and below Well-developed, no acute distress NCAT PERRL, normal conjunctiva moist mucous membranes, posterior oropharynx Without tonsillar exudate or edema. RRR Unlabored respiratory effort clear bilaterally Nondistended abdomen soft, nontender No rashes or lesions. Course Vital Signs Vital signs: Vital Signs Temperature 37.4 C 05/20/24 14:18 Pulse 110 H 05/20/24 14:18 Respiratory Rate 20 05/20/24 14:18 Blood Pressure 124/86 05/20/24 14:18 Pulse Oximetry 95 05/20/24 14:18 Temperature 37.4 C 05/20/24 14:20 Pulse 110 H 05/20/24 14:20 Respiratory Rate 20 05/20/24 14:20 Blood Pressure 124/86 05/20/24 14:20 Blood Pressure Position Sitting 05/20/24 14:20 Pulse Oximetry 95 05/20/24 14:20 Oxygen Delivery Method Room Air 05/20/24 14:20 Oxygen Flow Rate 0 05/20/24 14:20 Medical Decision Making Emergent evaluation of acute febrile illness associated with vomiting and diarrhea. Initial differential includes viral gastroenteritis, less likely acute appendicitis given lack of abdominal pain,, viral illness. Patient has some mild tachycardia likely associated with fever on arrival, but was given Zofran and antipyretic. He has not had a significant amount of output and has no clinical signs of dehydration. The patient will be swabbed for flu and COVID and an oral challenge will be given. Viral testing negative. Patient tolerating oral challenge after Zofran. No a dditional diarrhea in the emergency department. Recommend continued oral hydration and strategies discussed with the patient. Return precautions advised. Discharged with prescription for Zofran Quality:SDOH Health Related Social Needs: No Data to Display [facility] All Active Problems (Updated 05/20/24 @ 16:51 by Ethan Steel MD) Nausea vomiting and diarrhea (Acute) Fever (Acute) Acute otitis externa of left ear (Acute) Social History Smoking/Tobacco Use Status: Never Smoking risk assessment performed?: Yes Alcohol Intake: current Alcohol Intake frequency: a few times a week Drug use: Never Substance use type: does not use Do you feel safe at home: Yes Do you feel safe in your relationship?: Yes
[2024-05-20 16:21] VITALS: BP 126/77; PULSE 88; RESP 16; TEMP 37.3; O2SAT 97
== END 2024-05-20 16:54 | disposition home or self-care (01) ==
PROVIDERS: Emergency Provider Emergency Medicine
DX: R11.2 Nausea with vomiting, unspecified (principal); R19.7 Diarrhea, unspecified
CPT/HCPCS: 87426; 99283

== ENCOUNTER 2024-08-07 06:15 | Emergency (ER) | payer BC, SELFPAY ==
[2024-08-07 06:21] VITALS: BP 137/98; PULSE 80; RESP 16; TEMP 36.5; O2SAT 100
[2024-08-07 06:28] VITALS: BP 137/98; PULSE 80; RESP 16; TEMP 36.5; O2SAT 100
--- NOTE | 2024-08-07 07:03 | W.ED.GENAD ---
Discharge Plan Disposition Patient Disposition: Home Condition: Good Discharge Details Clinical Impression: Acute maxillary sinusitis Primary Care Provider: Unknown,Unknown ED Provider: Ez Reagan and New Rx's Prescriptions: New amoxicillin-pot clavulanate 875-125 mg tablet 1 tab PO BID Qty: 20 0RF fluticasone propionate 50 mcg/actuation spray,suspension 1 spray intranasal BID Qty: 16 0RF Rx Instructions: administer into each nostril Continued ibuprofen 800 MG tablet 800 mg PO DIRECTED Discharge Instructions Instructions: Sinusitis, Adult ED Additional Instructions: You were seen for worsening sinus symptoms that have been present for over 2 weeks. We will start you on antibiotic which you will take for 10 days. Will also start steroid nasal spray which you should take for a couple of weeks. Follow-up with primary care next week if you are not improving. Return to ED for any fever, confusion, worsening headache, other concerns. Discharge Data Discharge Date/Time-TO BE ENTERED AT DEPARTURE: 08/07/24 07:46 HPI General Mode of arrival: ambulatory. Date/Time Provider Initiated Documentation: 08/07/24 07:00. Limitations to Documentation: no limitations. Information obtained by: patient and RN notes reviewed. HPI Narrative: Patient presenting to the ED with 2 weeks of worsening sinus pain and pressure. Patient reports no other URI type symptoms. He has had no fever. He has been using acetaminophen and DayQuil at times for symptoms. Pain and pressure much worse in the last 24 to 36 hours especially on the left side. Initially reports fairly clear drainage from the nostrils now more of a pinkish-yellow color. Denies headache per se just pain and pressure in the face. Denies any earache, sore throat, cough, shortness of breath. Related Data Home Medications ?Medication ?Instructions ?Recorded ?Confirmed ibuprofen 800 mg tablet 800 mg PO DIRECTED 08/12/13 08/07/24 amoxicillin 875 mg-potassium 1 tab PO BID #20 tabs 08/07/24 clavulanate 125 mg tablet fluticasone propionate 50 1 spray intranasal BID #16 grams 08/07/24 mcg/actuation nasal spray,suspension Previous Rx's ?Medication ?Instructions ?Recorded amoxicillin 875 mg-potassium 1 tab PO BID #20 tabs 08/07/24 clavulanate 125 mg tablet fluticasone propionate 50 1 spray intranasal BID #16 grams 08/07/24 mcg/actuation nasal spray,suspension Allergies Allergy/AdvReac Type Severity Reaction Status Date / Time morphine Allergy Mild Skin Rash Unverified 08/07/24 06:20 General Stated Complaint: RespSymp ANTHONY: 4 Exam Narrative Exam Narrative: Const: WDWN male in NAD. VS per triage. HEENT: NC/AT. Pain/tender over the left maxillary sinus. Bilateral TM clear. Oropharynx clear. Neck: Supple. Trachea midline. Lungs: Normal respiratory effort. Lungs are clear. Neuro: A+O x 3. Normal speech, mentation, gait. Cranial nerves II - XII grossly intact. No gross motor or sensory deficit. Course Vital Signs Vital signs: Vital Signs Temperature 97.7 F 08/07/24 06:21 Pulse 80 08/07/24 06:21 Respiratory Rate 16 08/07/24 06:21 Blood Pressure 137/98 H 08/07/24 06:21 Pulse Oximetry 100 08/07/24 06:21 Temperature 97.7 F 08/07/24 06:28 Temperature Source Oral 08/07/24 06:28 Pulse 80 08/07/24 06:28 Respiratory Rate 16 08/07/24 06:28 Respiratory Effort Normal, Non-Labored 08/07/24 06:28 Respiratory Depth Normal 08/07/24 06:28 Blood Pressure 137/98 H 08/07/24 06:28 Blood Pressure Position Sitting 08/07/24 06:28 Pulse Oximetry 100 08/07/24 06:28 Oxygen Delivery Method Room Air 08/07/24 06:28 Oxygen Flow Rate 0 08/07/24 06:28 Pain Level 2 08/07/24 06:28 Medical Decision Making Given the patient's prolonged sinus symptoms now with pinkish-yellow drainage and significant pain and tenderness over the left maxillary sinus would initiate antibiotic treatment as well as nasal steroids. Prescription sent to pharmacy. May continue use of acetaminophen or ibuprofen for pain. He should follow-up with primary care next week if he is not improving. Return precautions discussed. PFSH All Active Problems (Updated 08/08/24 @ 02:57 by Ez Reagan MD) Acute maxillary sinusitis (Acute) Surgical History Status post arthroscopy of shoulder Social History Smoking/Tobacco Use Status: Never Smoking risk assessment performed?: Yes Alcohol Intake: current Alcohol Intake frequency: a few times a week Drug use: Never Substance use type: does not use Housing: house Do you feel safe at home: Yes Do you feel safe in your relationship?: Yes
[2024-08-07] MEDS: Amoxicillin 875/Clav. 125 TAB PO (07:27)
== END 2024-08-07 07:46 | disposition home or self-care (01) ==
LOC: ER 07:56
PROVIDERS: Emergency Provider Emergency Medicine
DX: J01.00 Acute maxillary sinusitis, unspecified (principal)
CPT/HCPCS: 99283